=== PATIENT | female | born 1955 | race Caucasian/White ===

== ENCOUNTER → 2016-04-30 | Outpatient (REF) | payer MEDICARE, OTHER ==
[~2016-04-30] MED LIST: /ESOM40CA OR; ALBUTEROL INFIL; AMBI5TAB OR; ASPI81TA83 OR; CALCCHW12 OR; DEPA500T2 OR; MULTIVIT PO; TYL RE; ZOLO50TA OR
== END ==
LOC: M LAB REF 09:37
PROVIDERS: ATTEND Ophthalmology
DX: T81.4XXA Infection following a procedure, initial encounter (principal); B95.61 Methicillin susceptible Staphylococcus aureus infection as the cause of diseases classified elsewhere

== ENCOUNTER 2016-05-17 09:32 | Emergency (ER) | payer MEDICARE, OTHER ==
[~2016-05-17] VITALS: Ht 177.8 cm; Wt 113.4 kg
[2016-05-17] MEDS ORDERED: [UNRECOGNIZED DRUG - CODE] PO (09:51)
[2016-05-17] MEDS ORDERED: ADVA230A INH (09:51)
[2016-05-17] MEDS ORDERED: OMEP40CA2 PO (09:51)
[2016-05-17] MEDS ORDERED: SERT-138 PO (09:51)
[2016-05-17] MEDS ORDERED: ALBU17IN INH (09:51)
[2016-05-17] MEDS ORDERED: PROP60TA14 PO (09:51)
[2016-05-17] MEDS ORDERED: KETOROLAC 30 MG/ML VIAL (J1885) IV ONE (11:15)
[2016-05-17] MEDS ORDERED: GASTROGRAFIN SOLUTION 30ML (Q9963) As Ordered ONE (11:18)
[2016-05-17 11:19] LABS: BASO % 0.5 % (0.0-1.0); EOS # 0.2 K/mm3 (0.0-0.50); EOS % 3.6 % (0.0-3.0); LARGE UNSTAINED CELL # 0.1 K/mm3 (0.0-0.4); LARGE UNSTAINED CELL % 1.6 % (0.0-4.0); LYMPH # 2.1 K/mm3 (1.5-4.5); LYMPH % 34.8 % (24.0-44.0); MEAN CORPUSCULAR HGB CONC 32.5 g/dl (32.0-36.5); MEAN CORPUSCULAR VOLUME 92.1 fl (80.0-96.0); MONO # 0.3 K/mm3 (0.0-0.8); MONO % 5.2 % (0.0-5.0); NEUTROPHILS # 3.2 K/mm3 (1.8-7.7); NEUTROPHILS % 54.4 % (36.0-66.0); PLATELET COUNT, AUTOMATED 231 k/mm3 (150-450); RED CELL DISTRIBUTION WIDTH 12.9 % (11.5-14.5); WHITE BLOOD COUNT 5.9 K/mm3 (4.0-10.0)
[2016-05-17] MEDS ORDERED: GASTROGRAFIN SOLUTION 30ML (Q9963) PO ONE ×2 (11:30→11:45)
[2016-05-17 11:42] LABS: ALBUMIN 3.6 GM/DL (3.2-5.2); ALKALINE PHOSPHATASE 94 U/L (45-117); ALT/SGPT 23 U/L (12-78); ANION GAP 6 MEQ/L (8-16); AST/SGOT 15 U/L (15-37); BILIRUBIN,TOTAL 0.4 MG/DL (0.2-1.0); BLOOD UREA NITROGEN 9 MG/DL (7-18); CALCIUM LEVEL 8.6 MG/DL (8.8-10.2); CARBON DIOXIDE LEVEL 29 MEQ/L (21-32); CHLORIDE LEVEL 107 MEQ/L (98-107); CREATININE FOR GFR 0.87 MG/DL (0.55-1.02); GLOMERULAR FILTRATION RATE > 60.0 (>45); GLUCOSE, FASTING 101 MG/DL (80-110); POTASSIUM SERUM 3.8 MEQ/L (3.5-5.1); SODIUM LEVEL 142 MEQ/L (136-145); TOTAL PROTEIN 7.2 GM/DL (6.4-8.2)
[2016-05-17] MEDS ORDERED: TYLE325C PO (14:27)
[2016-05-17] MEDS ORDERED: COLA100C3 PO (14:27)
--- NOTE | 2016-05-17 14:27 | REP ---
CT BRAIN WITHOUT CONTRAST: 05/17/2016. Comparison: MRI 03/02/2014, CT 03/02/2014. Clinical history: Vision change. Findings: Noncontrast soft tissue and bone windows for each slice level are provided. Ventricles are midline, symmetric and without dilatation or displacement. Basal ganglia are symmetric and normal. The avelar-white junction differentiation is well maintained. I do not see any significant white matter heterogeneity. The cortical stripe is preserved. There is no vascular territory infarct, hemorrhage, mass, mass effect or edema. Brainstem intact. Cerebellum symmetric. There is no basal cistern abnormality. The posterior fossa shows no hemorrhage or mass. Skull base bone windows show mastoids and visualized sinuses are clear. There is some minor calcifications in the carotid siphons. The calvarium and skull base are without fracture or focal lesion. Impression: 1. There is no intracranial hemorrhage, acute infarct, edema, mass or mass effect. Avelar white junction differentiation well maintained. Ventricular size normal. 2. Sinuses, mastoids, skull base and calvarium without any acute finding. There are some minor atherosclerotic calcifications in the carotid siphons. Stable examination. Signed by Tuan Mascorro MD 05/17/2016 07:33 P
[2016-05-17 14:32] VITALS: BP 150/70
--- NOTE | 2016-05-17 14:35 | REP ---
CT ABDOMEN AND PELVIS WITH CONTRAST: 05/17/2016. Clinical history: Groin pain. Comparison: CT 06/27/2015. Technique: Oral Gastrografin mixture 10 ml in 290 ml of flavored water for two doses per our bowel contrast protocol and a bolus of 100 ml Isovue 370 and scanning through the abdomen and pelvis with coronal and sagittal reconstructions provided. Findings:CT abdomen: Lung bases show minor linear fibrotic change in the medial segment of the right middle lobe and the inferior lingular segment of the left upper lobe lateral to the heart border at the anterior lung base. Heart is not enlarged. There is no pericardial thickening or effusion. No hiatal hernia. Liver and spleen are not enlarged. There is no focal hepatic mass nor intrahepatic biliary dilatation. There are clips from prior cholecystectomy. No adjacent ascites. Adrenal glands are normal. The pancreas shows no mass, ductal dilatation or inflammatory change. Kidneys show function without obstruction, stone, mass or cyst. No perinephric edema. No hydronephrosis, hydroureter or ureteral stone evident. Course of the ureters followed to the bladder on both sides were unremarkable. Lung window review of all CT slices in the abdomen and pelvis shows no evidence of perforation or free air. Bone windows show disc space narrowing and vacuum phenomenon at L4-5 and T9-10 through T11-12. Small marginal osteophytes at multiple levels. No spondylolysis or spondylolisthesis. Visualized ribs intact. CT pelvis. The bony hips show minor degenerative changes with the pelvis, sacrum, acetabuli and ischium all grossly intact. There is minor sclerotic aspect to the iliac margin of the SI joints bilaterally without erosion or narrowing of those joint spaces. In the deep pelvis, bladder only minimally filled but no distal ureteral dilatation or stone, bladder stone, mass or wall thickening. Vaginal cuff intact. There are staple lines from presumed prior oophorectomy or salpingectomy. I do not see adnexal mass. No pelvic free fluid or pathologic sized adenopathy. There is no ventral hernia except at the umbilicus. No bowel herniation there. Scarring in the infraumbilical region and midline but no herniation. I do not see evidence of a hernia in the inguinal region nor was there a mass. A few small inguinal nodes seen without adenopathy. Some slight fullness in the inguinal region with omental fat only but no bowel herniation. Distal left colon, sigmoid and rectum are without colitis or diverticulitis. The abdominal portion of the colon shows no sign of colitis or diverticulitis. No definite appendix is seen. No inflammatory changes adjacent to the cecum or deep pelvis. Impression: 1. Slight fullness of the inguinal canals with omental fat but no bowel herniation, mass or adenopathy of significance. 2. Status post hysterectomy, cholecystectomy and appendectomy. There are some atherosclerotic calcifications aorta and branches without aneurysm. 3. Omental fat herniating at the umbilicus with infraumbilical midline scar and some diastases but no other definite hernias in the abdominal wall. No inguinal hernia of bowel loops. 4. Small bowel loops and colon grossly intact. Solid organs in the upper abdomen intact and the stomach is without hiatal hernia. Signed by Tuan Mascorro MD 05/17/2016 07:33 P
== END 2016-05-17 14:35 | disposition home or self-care (01) ==
LOC: M ED 10:12
DX: K46.9 Unspecified abdominal hernia without obstruction or gangrene (principal); J44.9 Chronic obstructive pulmonary disease, unspecified; I10 Essential (primary) hypertension; K21.9 Gastro-esophageal reflux disease without esophagitis; F33.9 Major depressive disorder, recurrent, unspecified; Z86.73 Personal history of transient ischemic attack (TIA), and cerebral infarction without residual deficits; Z78.0 Asymptomatic menopausal state; Z79.899 Other long term (current) drug therapy; Z79.82 Long term (current) use of aspirin; F17.210 Nicotine dependence, cigarettes, uncomplicated
CPT/HCPCS: 70450; 74177; 80053; 81001; 85025; 96374; 99283; J1885; Q9963

== ENCOUNTER 2016-11-18 08:19 | Day surgery (SDC) | payer MEDICARE ==
[~2016-11-18] VITALS: Ht 177.8 cm; Wt 110.7 kg
[~2016-11-18 08:19] MED LIST changes: +ACETAMINOPHEN 325 MG TAB PO PRN; +ADVA230A INH; +ALBU17IN INH; +BSS with VANC/TOB/EPI for EYE CASES IR ONE; +COLA100C5 PO; +CYCLOPENTOLATE 2% OPHTH SOLN 2ML BTL XX ONE; +EZET10TA PO; +LIDOCAINE 3.5 % 1ML OPHTH TOPICAL GEL OU ONE; +MIDAZOLAM INJ 2 MG/2 ML VIAL (J2250) As Ordered ONE; +OFLOXACIN 0.3 % (OCUFLOX) OPTH SOL 5ML XX ONE; +OMEP40CA2 PO; +PHENYLEPHRINE 2.5% OPHTH SOL 2ML XX ONE; +PROP60TA14 PO; +PROPARACAINE 0.5% OPHTH SOL 15ML OD PRN; +SERT-138 PO; +TROPICAMIDE 1% OPHTH SOLN 2ML XX ONE; +TYLE325C PO; +[UNRECOGNIZED DRUG - CODE] PO; +fentaNYL 100 MCG/2 ML INJECTION (J3010) As Ordered ONE
[2016-11-18] MEDS ORDERED: LIDOCAINE 1% SDV 5 ML VIAL SQ ONE (08:30)
[2016-11-18] MEDS ORDERED: LR 1,000 ML IV SCH (08:30)
[2016-11-18] MEDS ORDERED: HEALON DUET (HEALON 10MG/ML 0.55ML & HEALON ENDOCOAT 30MG/ML 0.85ML) As Ordered ONE (09:28)
[2016-11-18] MEDS ORDERED: LIDOCAINE 1% SDV 5 ML VIAL As Ordered ONE (09:28)
[2016-11-18] MEDS ORDERED: MOXIFLOXACIN IN BSS 0.25MG/0.25ML INTRACAMERAL INJ (OR EYE ONLY)(J2280) As Ordered ONE (09:28)
[2016-11-18] MEDS ORDERED: TRIAMCINOLONE PRES FR 40 MG/ML 1ML(TRIESENCE)(OR EYE ONLY)(J3300 PER 1MG) As Ordered ONE (09:28)
[2016-11-18] MEDS ORDERED: POVIDONE-IODINE 5% OPHTH PREP SOL 30ML As Ordered ONE (09:28)
[2016-11-18] MEDS ORDERED: AcetaZOLAMIDE 500 MG ER CAP As Ordered ONE (10:13)
[2016-11-18 10:15] VITALS: BP 124/59
[2016-11-18] MEDS ORDERED: TRIMETHOBENZAMIDE 300 MG CAP PO PRN (10:30)
[2016-11-18] MEDS ORDERED: KETOROLAC 0.5% OPHTH SOLN OD ONE (10:30)
[2016-11-18] MEDS ORDERED: AcetaZOLAMIDE 500 MG ER CAP PO ONE (10:30)
== END 2016-11-18 10:25 | disposition home or self-care (01) ==
LOC: M SDC 08:19
PROVIDERS: ATTEND Ophthalmology
DX: H26.9 Unspecified cataract (principal); K21.9 Gastro-esophageal reflux disease without esophagitis; J44.9 Chronic obstructive pulmonary disease, unspecified; F32.9 Major depressive disorder, single episode, unspecified; F41.9 Anxiety disorder, unspecified; G43.909 Migraine, unspecified, not intractable, without status migrainosus; G47.33 Obstructive sleep apnea (adult) (pediatric); G47.00 Insomnia, unspecified; E66.9 Obesity, unspecified; I10 Essential (primary) hypertension; R29.898 Other symptoms and signs involving the musculoskeletal system; R06.2 Wheezing; R06.02 Shortness of breath; Z79.899 Other long term (current) drug therapy; Z79.82 Long term (current) use of aspirin; Z86.73 Personal history of transient ischemic attack (TIA), and cerebral infarction without residual deficits; Z72.0 Tobacco use; Z90.710 Acquired absence of both cervix and uterus
CPT/HCPCS: 66984; J2250; J2280; J3010; J3300; V2632

== ENCOUNTER → 2016-11-23 | Outpatient (CLI) | payer MEDICARE ==
[~2016-11-23] MED LIST changes: -ACETAMINOPHEN 325 MG TAB PO PRN; -BSS with VANC/TOB/EPI for EYE CASES IR ONE; -CYCLOPENTOLATE 2% OPHTH SOLN 2ML BTL XX ONE; -LIDOCAINE 3.5 % 1ML OPHTH TOPICAL GEL OU ONE; -MIDAZOLAM INJ 2 MG/2 ML VIAL (J2250) As Ordered ONE; -OFLOXACIN 0.3 % (OCUFLOX) OPTH SOL 5ML XX ONE; -PHENYLEPHRINE 2.5% OPHTH SOL 2ML XX ONE; -PROPARACAINE 0.5% OPHTH SOL 15ML OD PRN; -TROPICAMIDE 1% OPHTH SOLN 2ML XX ONE; -fentaNYL 100 MCG/2 ML INJECTION (J3010) As Ordered ONE
--- NOTE | 2016-11-23 10:07 | REPMRS ---
Patient History The patient states she had a clinical breast exam in 11/24 Patient is postmenopausal. Family history of breast cancer in 2 maternal cousins at age 50 or over and colorectal cancer in brother at age 50 or over. Reductions of both breasts, April 15, 2012. Digital Woman Screen Mammo: November 23, 2016 - Exam #: [id number] Bilateral CC and MLO view(s) were taken. Technologist: Christen Samuel, Technologist Prior study comparison: November 22, 2015, digital woman screen mammo performed at [facility] [employer] [facility]. November 20, 2014, digital woman screen mammo performed at [facility] [employer] [facility]. FINDINGS: There are scattered fibroglandular densities. There has been no change in the appearance of the mammogram from the prior studies. There is a mild amount of residual fibroglandular tissue which is fairly symmetric. There is no interval development of dominant mass, architectural distortion, or clustered microcalcification suggestive of malignancy. ASSESSMENT: BI-RADS/ACR category 1 mammogram. Negative. Recommendation Routine screening mammogram in 1 year (for women over age 40). This mammogram was interpreted with the aid of an FDA-approved computer-aided dectection system. Electronically Signed By: Johnnie Avelar MD 11/23/16 1007
== END ==
LOC: M WHC 09:03
PROVIDERS: ATTEND Nurse Practitioner Women's Health
DX: Z12.31 Encounter for screening mammogram for malignant neoplasm of breast (principal); Z78.0 Asymptomatic menopausal state; Z98.890 Other specified postprocedural states

== ENCOUNTER 2017-01-11 08:31 | Day surgery (SDC) | payer MEDICARE ==
[~2017-01-11] VITALS: Ht 180.3 cm; Wt 66.1 kg
[~2017-01-11 08:31] MED LIST changes: +BSS with VANC/TOB/EPI for EYE CASES IR ONE; +CYCLOPENTOLATE 2% OPHTH SOLN 2ML BTL OS ONE; +LIDOCAINE 3.5 % 1ML OPHTH TOPICAL GEL OU ONE; +OFLOXACIN 0.3 % (OCUFLOX) OPTH SOL 5ML OS ONE; +PHENYLEPHRINE 2.5% OPHTH SOL 2ML OS ONE; +TROPICAMIDE 1% OPHTH SOLN 2ML OS ONE
[2017-01-11] MEDS ORDERED: ACETAMINOPHEN 325 MG TAB As Ordered ONE (10:30)
[2017-01-11] MEDS ORDERED: ACETAMINOPHEN TAB 650MG DOSE (2X325MG) PO ONE (10:30)
[2017-01-11] MEDS ORDERED: LIDOCAINE 1% SDV 5 ML VIAL As Ordered ONE (10:58)
[2017-01-11] MEDS ORDERED: MOXIFLOXACIN IN BSS 0.25MG/0.25ML INTRACAMERAL INJ (OR EYE ONLY)(J2280) As Ordered ONE (10:58)
[2017-01-11] MEDS ORDERED: TRIAMCINOLONE PRES FR 40 MG/ML 1ML(TRIESENCE)(OR EYE ONLY)(J3300 PER 1MG) As Ordered ONE (10:58)
[2017-01-11] MEDS ORDERED: HEALON DUET (HEALON 10MG/ML 0.55ML & HEALON ENDOCOAT 30MG/ML 0.85ML) As Ordered ONE (10:58)
[2017-01-11] MEDS ORDERED: POVIDONE-IODINE 5% OPHTH PREP SOL 30ML As Ordered ONE (10:58)
[2017-01-11] MEDS ORDERED: fentaNYL 100 MCG/2 ML INJECTION (J3010) As Ordered ONE (11:47)
[2017-01-11] MEDS ORDERED: MIDAZOLAM INJ 2 MG/2 ML VIAL (J2250) As Ordered ONE (11:47)
[2017-01-11 12:30] VITALS: BP 119/58
== END 2017-01-11 13:00 | disposition home or self-care (01) ==
LOC: M SDC 08:31
PROVIDERS: ATTEND Ophthalmology
DX: H25.9 Unspecified age-related cataract (principal); I10 Essential (primary) hypertension; E78.5 Hyperlipidemia, unspecified; K21.9 Gastro-esophageal reflux disease without esophagitis; F32.9 Major depressive disorder, single episode, unspecified; Z79.899 Other long term (current) drug therapy; F17.210 Nicotine dependence, cigarettes, uncomplicated; J44.9 Chronic obstructive pulmonary disease, unspecified; Z79.82 Long term (current) use of aspirin
CPT/HCPCS: 66984; J2250; J2280; J3010; J3300; V2632

== ENCOUNTER → 2017-02-14 | Outpatient (REF) | payer MEDICARE | LOC: M LAB REF 09:14 | DX: N39.0 Urinary tract infection, site not specified (principal) | CPT/HCPCS: 87186 ==

== ENCOUNTER → 2017-07-06 | Outpatient (CLI) | payer MEDICARE | LOC: M WUC 11:47 | DX: M54.5 Low back pain (principal) | CPT/HCPCS: 72110 ==

== ENCOUNTER → 2017-09-20 | Outpatient (CLI) | payer MEDICARE | LOC: M SMT 10:35 | DX: J44.9 Chronic obstructive pulmonary disease, unspecified (principal) | CPT/HCPCS: 71046 ==

== ENCOUNTER → 2017-11-24 | Outpatient (CLI) | payer MEDICARE | LOC: M WHC 08:31 | DX: Z12.31 Encounter for screening mammogram for malignant neoplasm of breast (principal); Z78.0 Asymptomatic menopausal state; Z92.89 Personal history of other medical treatment; Z80.0 Family history of malignant neoplasm of digestive organs | CPT/HCPCS: 77067 ==

== ENCOUNTER 2018-01-23 17:37 | Emergency (ER) | payer MEDICARE ==
[2018-01-23] MEDS: NS 1,000 ML IV (18:04)
[2018-01-23] MEDS: ASPIRIN 81 MG CHEW TABLET PO (18:13)
[2018-01-23 18:15] LABS: BASO % 0.5 % (0.0-1.0); EOS # 0.2 10^3/uL (0.0-0.50); EOS % 3.2 % (0.0-3.0); HEMATOCRIT 41.7 % (36.0-47.0); HEMOGLOBIN 13.5 g/dl (12.0-15.5); IMMATURE GRANULOCYTE % 0.5 % (0-3.0); MEAN CORPUSCULAR HEMOGLOBIN 30.1 pg (27.0-33.0); MEAN CORPUSCULAR HGB CONC 32.4 g/dl (32.0-36.5); MEAN CORPUSCULAR VOLUME 93.1 fl (80.0-96.0); MONO # 0.4 10^3/uL (0.0-0.8); MONO % 6.6 % (0.0-5.0); NEUTROPHILS # 3.8 10^3/uL (1.8-7.7); NEUTROPHILS % 59.2 % (36.0-66.0); PLATELET COUNT, AUTOMATED 235 10^3/uL (150-450); RED BLOOD COUNT 4.48 10^6/uL (4.00-5.40); RED CELL DISTRIBUTION WIDTH 12.3 % (11.5-14.5); WHITE BLOOD COUNT 6.5 10^3/uL (4.0-10.0)
[2018-01-23 18:18] LABS: PROTHROMBIN TIME 12.3 SECONDS (12.1-14.4)
[2018-01-23 18:27] LABS: ALBUMIN 3.5 GM/DL (3.2-5.2); ALBUMIN/GLOBULIN RATIO 1.21 (1.00-1.93); ALKALINE PHOSPHATASE 94 U/L (45-117); ALT/SGPT 27 U/L (12-78); ANION GAP 8 MEQ/L (8-16); AST/SGOT 16 U/L (7-37); BILIRUBIN,DIRECT < 0.1 MG/DL (0.0-0.2); BILIRUBIN,TOTAL 0.3 MG/DL (0.2-1.0); BLOOD UREA NITROGEN 12 MG/DL (7-18); CALCIUM LEVEL 8.2 MG/DL (8.8-10.2); CARBON DIOXIDE LEVEL 29 MEQ/L (21-32); CHLORIDE LEVEL 109 MEQ/L (98-107); CK-MB VALUE MASS < 1.0 NG/ML (<3.6); CPK CREATINE PHOSPHOKINASE 62 U/L (26-192); GLOMERULAR FILTRATION RATE > 60.0 (>45); GLUCOSE, FASTING 117 MG/DL (70-100); MB/CK RELATIVE INDEX 1.61 (< OR =4); POTASSIUM SERUM 3.5 MEQ/L (3.5-5.1); SODIUM LEVEL 146 MEQ/L (136-145); TOTAL PROTEIN 6.4 GM/DL (6.4-8.2); TROPONIN I < 0.02 NG/ML (< 0.10)
[2018-01-23 23:26] LABS: CK-MB VALUE MASS < 1.0 NG/ML (<3.6); CPK CREATINE PHOSPHOKINASE 53 U/L (26-192); MB/CK RELATIVE INDEX 1.89 (< OR =4); TROPONIN I < 0.02 NG/ML (< 0.10)
== END 2018-01-23 23:56 | disposition home or self-care (01) ==
LOC: M ED 17:37
DX: I20.8 Other forms of angina pectoris (principal); I10 Essential (primary) hypertension; E78.5 Hyperlipidemia, unspecified; Z79.899 Other long term (current) drug therapy; Z79.82 Long term (current) use of aspirin; Z82.49 Family history of ischemic heart disease and other diseases of the circulatory system; Z86.73 Personal history of transient ischemic attack (TIA), and cerebral infarction without residual deficits; Z87.891 Personal history of nicotine dependence
CPT/HCPCS: 71045

== ENCOUNTER → 2019-02-09 | Outpatient (CLI) | payer MEDICARE ==
[~2019-02-09] MED LIST changes: -/ESOM40CA OR; +AMIT25TA PO; -BSS with VANC/TOB/EPI for EYE CASES IR ONE; -CYCLOPENTOLATE 2% OPHTH SOLN 2ML BTL OS ONE; -EZET10TA PO; +EZET10TA21 PO; +GUAI1SOL2 PO; -LIDOCAINE 3.5 % 1ML OPHTH TOPICAL GEL OU ONE; +NEXI1CAP3 OR; -OFLOXACIN 0.3 % (OCUFLOX) OPTH SOL 5ML OS ONE; -OMEP40CA2 PO; +OMEP40CA97 PO; -PHENYLEPHRINE 2.5% OPHTH SOL 2ML OS ONE; +PRED20TA PO; +REDCAP4 PO; -TROPICAMIDE 1% OPHTH SOLN 2ML OS ONE; -[UNRECOGNIZED DRUG - CODE] PO
--- NOTE | 2019-02-09 09:24 | REPMRS ---
Patient History The patient states she had a clinical breast exam in 12/2018. Patient is postmenopausal. Family history of breast cancer at age 50 or over in maternal cousin, breast cancer in maternal cousin, colorectal cancer at age 50 or over in brother. Reductions of both breasts, April 15, 2012. No Hormone Replacement Therapy Digital Woman Screen Mammo: February 09, 2019 - Exam #: [id number] Bilateral CC and MLO view(s) were taken. Technologist: Candice Victor, Technologist Prior study comparison: November 24, 2017, bilateral digital woman screen mammo performed at [facility]. November 23, 2016, digital woman screen mammo performed at [facility]. November 22, 2015, digital woman screen mammo performed at [facility]. FINDINGS: There are scattered fibroglandular densities. There has been no change in the appearance of the mammogram from the prior studies. There is a mild amount of scattered fibroglandular density which is fairly symmetric. There is no interval development of dominant mass, architectural distortion, or grouped microcalcification suggestive of malignancy. 3-D tomosynthesis shows no additional findings. Assessment: BI-RADS/ACR category 1 mammogram. Negative Mammogram. Recommendation Routine screening mammogram of both breasts in 1 year (for women over age 40). This patient's Lifetime Breast Cancer Risk is estimated at 4.3 %. This mammogram was interpreted with the aid of an FDA-approved computer-aided dectection system. Electronically Signed By: Oh Virk MD 02/09/19 0924
== END ==
LOC: M WHC 08:17
PROVIDERS: ATTEND Internal Medicine
DX: Z12.31 Encounter for screening mammogram for malignant neoplasm of breast (principal)

== ENCOUNTER 2019-02-11 13:55 | Emergency (ER) | payer MEDICARE ==
[~2019-02-11] VITALS: Ht 182.9 cm; Wt 119.5 kg
[~2019-02-11 13:55] MED LIST changes: -AMIT25TA PO; -GUAI1SOL2 PO; -PRED20TA PO
[2019-02-11] MEDS ORDERED: AMIT25TA PO (14:29)
[2019-02-11] MEDS ORDERED: ALBUTEROL SULFATE 2.5 MG/0.5 ML INH NEB SOLN INH ONE (14:30)
[2019-02-11] MEDS ORDERED: FAMOTIDINE INJ 20MG/2ML VIAL (S0028) IVP ONE (14:30)
[2019-02-11] MEDS: MORPHINE 2 MG/ML 1ML VIAL (J2270) IV PRN ×2 (14:34→15:33)
[2019-02-11] MEDS ORDERED: GUAI1SOL2 PO (15:24)
[2019-02-11] MEDS ORDERED: LIDOCAINE VISCOUS 2% SOLN 15ML UDC PO STA (16:09)
[2019-02-11] MEDS ORDERED: PRED20TA PO (16:10)
[2019-02-11 16:38] VITALS: BP 164/70
--- NOTE | 2019-02-12 07:14 | REP ---
PORTABLE CHEST X-RAY: Single view. HISTORY: Cough. COMPARISON STUDY: January 23, 2018. FINDINGS: EKG electrodes are seen. Heart is not felt to be enlarged. Pulmonary vasculature is cephalized and there is vascular congestion. Question interstitial edema. This represents a change from prior study. IMPRESSION: Pulmonary vascular cephalization and congestion. Question interstitial edema diffusely. No focal infiltrate. Electronically Signed by Andrez Virk MD 02/12/2019 09:10 A
--- NOTE | 2019-02-12 17:11 | ED PDOC ---
Post-Departure Follow-Up dr burr faxed formal report of cxr for fu Judah Andrews MD Feb 12, 2019 17:11
== END 2019-02-11 16:39 | disposition home or self-care (01) ==
LOC: M ED 13:55
DX: R05 Cough (principal); T50.995A Adverse effect of other drugs, medicaments and biological substances, initial encounter; X58.XXXA Exposure to other specified factors, initial encounter; Y92.89 Other specified places as the place of occurrence of the external cause; I10 Essential (primary) hypertension; Z79.899 Other long term (current) drug therapy; Z79.82 Long term (current) use of aspirin
CPT/HCPCS: 71045; 94640; 96374; 96375; 96376; 99284; J2270

== ENCOUNTER → 2019-02-18 | Outpatient (CLI) | payer MEDICARE ==
[~2019-02-18] MED LIST changes: +AMIT25TA PO; +GUAI1SOL2 PO; +PRED20TA PO
--- NOTE | 2019-02-18 13:54 | REP ---
CHEST, TWO VIEWS: Two views of the chest are performed and compared to multiple prior exams dating back to 10/25/2013. There is mild bibasilar fibrotic change. No acute infiltrate is seen. Heart is normal in size. There is calcification and tortuosity of the thoracic aorta. Mediastinal silhouette is unchanged. There are degenerative changes of the spine with slight curvature toward the left. IMPRESSION: Mild chronic fibroatelectatic changes in the lung bases without evidence of acute infiltrate. Electronically Signed by Johnnie Avelar MD 02/18/2019 04:05 P
== END ==
LOC: M WUC 10:15
PROVIDERS: ATTEND Internal Medicine
DX: R91.8 Other nonspecific abnormal finding of lung field (principal); J68.1 Pulmonary edema due to chemicals, gases, fumes and vapors

== ENCOUNTER 2020-12-08 08:43 | Emergency (ER) | payer MEDICARE ==
[~2020-12-08] VITALS: Ht 180.3 cm; Wt 128.6 kg
[~2020-12-08 08:43] MED LIST changes: -AMIT25TA PO; +AMIT25TA17 PO; +OMEP40CA4 PO; -OMEP40CA97 PO
--- OUTSIDE RECORDS SUMMARY | 2020-12-08 08:51 | CCD ---
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 Onset: 05/22/2004 Allergic rhinitis James Beverly M.D. Onset: 07/03/2004 Depressive disorder Hortencia Barrett [facility]- Onset: 0 Migraine Hortencia Barrett [facility]-BC Onset: 2 Hyperlipidemia Hortencia Barrett [facility]-BC Onset: 2 Obesity Zuleyka Yan [facility]-C Onset: 2012 Chronic low back pain Letitia Portillo D., JAM-C Onset: 02/2013 Chronic obstructive lung disease Letitia Portillo D., [facility]-C Onset: 10/30/2014 Sleep apnea Letitia Portillo D., [facility]-C Onset: 07/04 Social History Type Date Description Comments Sex Unknown Tobacco Use Start: Unknown End: Unknown Patient is a former smoker Allergies and adverse reactions Active Allergies Criticality Reaction | Severity Comments Date Statins Unable to assess criticality 10/30/2014 Inactive Allergies NKDA Unable to assess criticality 05/22/2004 Medications Active Medications SIG Qnty Indications Ordering Provide r Date Nitrofurantoin Macrocrystal 100mg Capsules 1 by mouth twice a day x 7 days 14caps Eric Connelly M.D. 11/22/2020 Mirtazapine 15mg Tablets take 1 tablet by mouth once nightly at bedtime 90Tablet Eric Connelly M.D. 10/16/2020 Womens One Daily Tablets 1 p .o. qd OTC Eric Connelly M.D. 10/16/2020 Psyllium Husk Powder psyllium husk 700mg cap bid OTC Eric Connelly M.D. 10/17/19 21 Amlodipine Besylate 5mg Tablets 1 By Mouth Once Daily 90tabs Eric Connelly M.D. 04/09/19 21 Sertraline HCL 50mg Tablets Take One Tablet By Mouth Every Day 90tabs Eric Connelly M.D . 08/09/2018 Proair HFA 108(90Base) mcg/Act Aer osol 2 puffs every 4 hours as needed for sob 3units Eric Hale, [facility]- 10/30/[address] Take One Capsule By Mouth Every Day 90caps Eric Connelly M. D. 06/21/2012 Sertraline HCL 100mg Tablets Take One Tablet By Mouth Every Day With The 50 MG Tablet 90tabs F32.9 Eric Connelly M.D. 03/13/2008 Advair Diskus 250-50mcg/Dose Aeros ol 1 puff bid 1units Unknown Red Yeast Rice 600mg Tablets 2 po qd OTC Unknown Asa 81 Capsules Take 2 aspirin once daily 2caps Unknown Vitamin C Adult Gummies 125mg Chew tabs as directed daily OTC Unknown Vitamin D3 250mcg (85806 Ut) Capsu les 1 p.o. qd Unknown Cholesterol Defense Tablets daily as directed Unknown Fiber-Caps 625mg Tablets 1 tab by mouth once a day OTC Unknown History Medications Cipro 500mg Tablets 1 by mouth twice a day 6tabs Eric Connelly M.D. 11/19/19 21 - 11/22/2020 Medications Administered in Office Medication SIG Qnty Indications Ordering Provider Date Injection (SC)/(Im) Injection Deepak Tay D.O., FAAFP 12/02/2012 Injection (SC)/(Im) Injection Zuleyka Yan RPA-C 01/25/2012 Injection (SC)/(Im) Injection Hortencia Barrett [facility]-BC 12/26/2010 Injection Subcutaneous Or Intramuscular Injection Hortencia Barrett [facility]- 03/11 Immunizations CPT Code Status Date Vaccine Lot # 47333 Given 10/16/2020 Influenza Virus Vaccine, Quadrivalent, Slit Virus, Im Use 3Y & Up [id number] 36476 Given 03/08/2020 Pneumococcal Immunization T0 30596 72668 Given 11/09/2016 Influenza Virus Vaccine, Quadrivalent, Slit Virus, Im Use 3Y & Up [id number] 18284 Given 04/01/2015 PPD Tuberculosis Intradermal 99638 Given 10/30/2014 Influenza Virus Vac. Split Virus Individuals 3 Years And Above [id number] 33574 Given 11/20/2013 Influenza Virus Vac. Split Virus Individuals 3 Years And Above [id number] 41821 Given 12/02/2012 Influenza Virus Vac. Split Virus Individuals 3 Years And Above [id number] 92967 Given 01/25/2012 Influenza Vaccin e (Fluzone) 3Yrs Of Age Or Older Medicare Plans 97170 Given 01/25/2012 Influenza Virus Vac. Split Virus Individuals 3 Years And Above [id number] 97167 Given 12/26/2010 Pneumococcal Immunization 11 112 Vital Signs Date Vital Result Comment 11/29/2020 3:32pm BP Systolic 128 mmHg BP Diastolic 82 mmHg Body Temperature 97.6 F Heart Rate 118 /min Respiratory Rate 18 /min Height 70 inches 5'10" Weight 289.00 lb [place] Body Weight 150 lb BMI (Body Mass Index) 41.5 kg/m2 O2 % BldC Oximetry 98 % 11/18/2020 11:30am BP Systolic 146 mmHg BP Diastolic 88 mmHg Body Temperature 97.8 F Heart Rate 97 /min Respiratory Rate 16 /min Height 70 inches 5'10" Weight 283.00 lb [place] Body Weight 150 lb BMI (Body Mass Index) 40.6 kg/m2 O2 % BldC Oximetry 94 % Results Test Acquired Date Facility Test Result H/L Range Note Urine Culture, Routine 11/18/2020 [facility] [place] Urine Culture, Routine Final report Abnormal 1, 2 Result 1 Escherichia coli Abnormal 3 Antimicrobial Susceptibility See Comment: 4 U/A DIP FPA 11/18/2020 [facility] Asso ciates Color Urine YELLOW Yellow Appearance CLEAR Clear Specific [place] 1.020 1.00-1.03 PH Urine 5.0 5.0-8.0 Glucose Urine NEG Negative Bilirubin Urine NEG Negative Ketones NEG Negative Blood Urine NEG Negative Protein Urine NEG Negative Urobilinogen .2 EU/dl 0.2-1.0 Nitrite NEG Negative Leukocytes 1+ High Negative CMP 07/10/2020 [facility]Inhouse Glu 120 mg/dL High 70 - 110 5 BUN 11 mg/dL 8 - 23 Creat 0.9 mg/dL 0.5 - 1.0 BUN/Creatinine Ratio 11.9 CALC Na 142 mmol/L 136 - 145 K 4.1 mmol/L 3.5 - 5.1 CL 105.7 mmol/L 98.0 - 107.0 Co2 23.6 mmol/L 22.0 - 29.0 CA 9.4 mg/dL 8.6 - 10.2 TP 6.5 g/dL Low 6.6 - 8.7 Alb 4.4 g/dL 3.4 - 4.8 A/G Ratio 2.1 CALC Globulin 2.1 CALC Alp 94.0 U/L 35 - 129 Alt (SGPT) 17 U/L 0 - 41 Ast (Sgot) 15 U/L 0 - 40 Tbili 0.35 mg/dL 0.0 - 1.2 Osmolality-Calculated 283.2 CALC Anion Gap 17 mmol/L eGFR 77 # Calc 6 eGFR Non-Afr. [place] 67 # Calc 7 Lipid Panel 07/10/2020 [facility] Chol 178 mg/dL 0 - 200 Trig 119 mg/dL 40 - 200 HDL 53 mg/dL 45 - 65 LDL_C 101 Calc 75 - 129 Cho/HDL Ratio 3.4 CALC 1 SRC:URINE 2 Source of Specimen: URINE 3 Escherichia coli Source of Specimen: URINE Cefazolin <=4 ug/mL Cefazolin with an DIANA <=16 predicts susceptibility to the oral agents cefaclor, cefdinir, cefpodoxime, cefprozil, cefuroxime, cephalexin, and loracarbef when used for therapy of uncomplicated urinary tract infections due to E. coli, Klebsiella pneumoniae, and Proteus mirabilis. 25,000-50,000 colony forming units per m L 4 Source of Specimen: URINE S = Susceptible; I = Intermediate; R = Resistant P = Positive; N = Negative MICS are expressed in micrograms per mL Antibiotic RSLT#1 RSLT#2 RSLT#3 RSLT#4 Amoxicillin/Clavulanic Acid S Ampicillin S Cefepime S Ceftriaxone S Cefuroxime S Ciprofloxacin S Ertapenem S Gentamicin S Imipenem S Levofloxacin S Meropenem S Nitrofurantoin S Piperacillin/Tazobactam S Tetracycline S Tobramycin S Trimethoprim/Sulfa S 5 CHRONIC KIDNEY DISEASE STAGI NG PER NKF: MALE GFR INTERPRETATION: 20-49 YRS: >60 mL/min Normal 50-59 YRS: >56 mL/min Normal 60-69 YRS: >49 mL/min Normal 70-79 YRS: >42 mL/min Normal 80 and above >35 mL/min Normal FEMALE GRF INTERPRETATION: 20-39 YRS: >60 mL/min Normal 40-49 YRS: >58 mL/min Normal 50-59 YRS: >51 mL/min Normal 60-69 YRS: >45 mL/min Normal 70-79 YRS: >39 mL/min Normal 80 and above >32 mL/min NormalCLASSIFICATION CHOLESTEROL FOR ADULTS CHILDREN/ADOLESCENTS* DESIRABLE: <200 MG/DL <170 MG/DL BORDER-LINE HIGH RISK: 200-239 MG/DL 170-199 MG/DL HIGH RISK: >240 MG/DL >200 MG/DL CLASS. FOR PRIMARY LDL CHOL PREVENTION: LDL CHOL-CHILD/ADOLESCENTS* DESIRABLE: <130 MG/DL <110 MG/DL BORDERLINE-HIGH RISK: 130-159 MG/DL 110-129 MG/DL HIGH RISK: >160 MG/DL >130 MG/DL *CHILDREN AND ADOLESCENTS REPRESENTS INDIVIDUALA AGED 2-19 YEARS EXCLUSIVE. 6 CKD-EPI 7 CKD-EPI Procedures Date Code Description Status 11/29/2020 45796 Office/Outpatient Established Mo d MDM 30-39 Min Completed 11/18/2020 75086 Office/Outpatient Established Mo d MDM 30-39 Min Completed 10/16/2020 36620 Office/Outpatient Established Mo d MDM 30-39 Min Completed 07/10/2020 67615 Office/Outpatient Established Mo d MDM 30-39 Min Completed 02/09/2019 [id number] Mammogram Completed Medical Devices Description No Information Available Encounters Type Date Location Provider Dx Diagnosis Office Visit 11/29/2020 3:40p [facility] Eric Connelly M. D. R19.5 Other fecal abnormalities Office Visit 11/18/2020 11:30a [facility] Eric Connelly M. D. R32 Unspecified urinary incontinence Office Visit 10/16/2020 1:30p [facility] Eric Connelly M. D. R41.82 Altered mental status, unspecified Office Visit 07/10/2020 9:00a [facility] Eric Connelly M. D. F33.0 Major depressive disorder, recurrent, mild I10 Essential (primary) hyperten geraldine J44.9 Chronic obstructive pulmonar y disease, unspecified E78.5 Hyperlipidemia, unspecified R73.01 Impaired fasting glucose Assessments Date Code Description Provider 11/29/2020 R19.5 Other fecal abnormalities Eric Thorne M.D. 11/18/2020 R32 Unspecified urinary incontinence Eric Connelly M.D. 10/16/2020 R41.82 Altered mental status, unspecifi ed Eric Connelly M.D. 07/10/2020 F33.0 Major depressive disorder, recur rent, mild Eric Connelly M.D. 07/10/2020 I10 Essential (primary) hypertension Eric Connelly M.D. 07/10/2020 J44.9 Chronic obstructive pulmonary di sease, unspecified Eric Connelly M.D. 07/10/2020 E78.5 Hyperlipidemia, unspecified [facility] Eric kaye M.D. 07/10/2020 R73.01 Impaired fasting glucose Eric Huitron M.D. Plan of Treatment Future Appointment(s):* 01/13/2021 8:45 am - Eric Connelly M.D. at [facility] Functional Status Description No Information Available Mental Status Description No Information Available Referrals Refer to Dr Reason for Referral Status Appt Date Efra Orta M.D. positive FIT test- eval and rx Sent 12/09/[address] [place] [address] [address] [place] [address] [phone]
--- OUTSIDE RECORDS SUMMARY | 2020-12-08 08:52 | CCD ---
Continuity of Care Document (CCD) Created on: 12/03/2020 Teena Reis External Reference #: [id number] : [id number] Sex: Female Author Author Teena CONNELLY M.D. Organization Unknown Address [address] [address] Phone [phone] Care Team Providers Care Industrial Accountant Name Role Phone [facility] AUT [phone] Problems Active Problems Provider Date Gastroesophageal reflux disease James Beverly M.D. Onset: 05/22/2004 Allergic rhinitis James Beverly M.D. Onset: 07/03/2004 Depressive disorder Hortencia Barrett [facility]-BC Onset: 0 Migraine Hortencia BarrettP-BC Onset: 2 Hyperlipidemia Hortencia Barrett [employer]-BC Onset: 2 Obesity Zuleyka Yan [facility]-C Onset: 2012 Chronic low back pain Letitia Portillo D., JAM-C Onset: 02/2013 Chronic obstructive lung disease Letitia Portillo D., [facility]-C Onset: 10/30/2014 Sleep apnea Letitia Portillo D., [employer] [facility]-C Onset: 07/04 Social History Type Date Description [...] 10/17/19 21 Amlodipine Besylate 5mg Tablets 1 by mouth every day 90tabs Eric Connelly M.D. 04/09/19 21 Sertraline HCL 50mg Tablets Take One Tablet By Mouth Every Day 90tabs Eric Connelly M.D . 08/09/2018 Proair HFA 108(90Base) mcg/Act Aer osol 2 puffs every 4 hours as needed for sob 3units Eric Hale, [facility]- 10/30/[address] [...] directed daily OTC Unknown Vitamin D3 250mcg (09830 Ut) Capsu les 1 p.o. qd Unknown [...] RPA-C 01/25/2012 Injection (SC)/(Im) Injection Hortencia Barrett [employer]-BC 12/26/2010 Injection Subcutaneous Or Intramuscular Injection Hortencia Barrett [facility]- 03/11 Immunizations CPT Code Status Date Vaccine Lot # 72767 Given 10/16/2020 Influenza Virus Vaccine, Quadrivalent, Slit Virus, Im Use 3Y & Up [id number] 57579 Given 03/08/2020 Pneumococcal Immunization T0 07384 28120 Given 11/09/2016 Influenza Virus Vaccine, Quadrivalent, Slit Virus, Im Use 3Y & Up [id number] 31115 Given 04/01/2015 PPD Tuberculosis Intradermal 24644 Given 10/30/2014 Influenza Virus Vac. Split Virus Individuals 3 Years And Above [id number] 88247 Given 11/20/2013 Influenza Virus Vac. Split Virus Individuals 3 Years And Above [id number] 74314 Given 12/02/2012 Influenza Virus Vac. Split Virus Individuals 3 Years And Above [id number] 95866 Given 01/25/2012 Influenza Vaccin e (Fluzone) 3Yrs Of Age Or Older Medicare Plans 65615 Given 01/25/2012 Influenza Virus Vac. Split Virus Individuals 3 Years And Above [id number] 80702 Given 12/26/2010 Pneumococcal Immunization 11 112 Vital Signs Date Vital Result Comment 11/29/2020 3:32pm BP Systolic 128 mmHg BP Diastolic 82 mmHg Body Temperature 97.6 F Heart Rate 118 /min Respiratory Rate 18 /min Height 70 inches 5'10" Weight 289.00 lb [place] Body Weight 150 lb BMI (Body Mass Index) 41.5 kg/m2 O2 % BldC Oximetry 98 % 11/18/2020 11:30am BP Systolic 146 mmHg BP Diastolic 88 mmHg Body Temperature 97.8 F Heart Rate 97 /min Respiratory Rate 16 /min Height 70 inches 5'10" Weight 283.00 lb [place] Body Weight 150 lb BMI (Body Mass [...] Urine YELLOW Yellow Appearance CLEAR Clear Specific [place] 1.020 1.00-1.03 PH Urine 5.0 5.0-8.0 Glucose [...] eGFR 77 # Calc 6 eGFR Non-Afr. [place]ian 67 # Calc 7 Lipid Panel 07/10/2020 [...] CKD-EPI Procedures Date Code Description Status 11/29/2020 33880 Office/Outpatient Established Mo d MDM 30-39 Min Completed 11/18/2020 06949 Office/Outpatient Established Mo d MDM 30-39 Min Completed 10/16/2020 43137 Office/Outpatient Established Mo d MDM 30-39 Min Completed 07/10/2020 13792 Office/Outpatient Established Mo d MDM 30-39 Min Completed 02/09/2019 [id number] Mammogram Completed Medical Devices Description No Information Available Encounters Type Date Location Provider Dx Diagnosis Office Visit 11/29/2020 3:40p [facility] Eric Connelly M. D. R19.5 Other fecal abnormalities Office Visit 11/18/2020 11:30a [facility] Eric Connelly M. D. R32 Unspecified urinary incontinence Office Visit 10/16/2020 1:30p [facility] Eric Connelly M. D. R41.82 Altered mental status, unspecified Office Visit 07/10/2020 9:00a [facility] Eric Connelly M. D. F33.0 Major depressive [...] 8:45 am - Eric Connelly M.D. at [facility] Functional Status Description No Information Available Mental Status Description No Information Available Referrals Refer to Dr Reason for Referral Status Appt Date Efra Orta M.D. positive FIT test- eval and rx Sent 12/09/[address] [place] [address] [address] [place] [address] [phone]
--- OUTSIDE RECORDS SUMMARY | 2020-12-08 08:52 | CCD | Continuity of Care Document ---
Author Author Teena CONNELLY M.D. Organization Unknown Address [address] [address] Phone [phone] Care Team Providers Care Horticultural Specialty Grower Field Name Role Phone [facility] AUT Problems Active Problems Provider Date Gastroesophageal reflux disease James Beverly M.D. Onset: 05/22/2004 Allergic rhinitis James Beverly M.D. Onset: 07/03/2004 Depressive disorder Hortencia Barrett [facility]- Onset: 0 Migraine Hortencia Barrett-BC Onset: 2 Hyperlipidemia Hortencia Barrett PERMIT SPECIALIST-BC Onset: 2 Obesity Zuleyka Yan [facility]-C Onset: 2012 Chronic low back pain Letitia Portillo D., JAM-C Onset: 02/2013 Chronic obstructive lung disease Letitia Portillo D., PERMIT SPECIALIST-C Onset: 10/30/2014 Sleep apnea Letitia Portillo D., PERMIT SPECIALIST-C Onset: 07/04 Social History Type Date Description Comments Sex Unknown Tobacco Use Start: Unknown End: Unknown Patient is a former smoker Allergies and adverse reactions Active Allergies Criticality Reaction | Severity Comments Date Statins Unable to assess criticality 10/30/2014 Inactive Allergies NKDA Unable to assess criticality 05/22/2004 Medications Active Medications SIG Qnty Indications Ordering Provide r Date Cipro 500mg Tablets 1 by mouth twice a day 6tabs Eric Connelly M.D. 11/19/19 21 Mirtazapine 15mg Tablets take 1 tablet by [...] Take One Tablet By Mouth Every Day 90taEric Gonzalez M.D . 08/09/2018 Proair HFA 108(90Base) mcg/Act Aer osol 2 puffs every 4 hours as needed for sob 3units Eric Hale [facility]- 10/30/[address] Take [...] directed daily OTC Unknown Vitamin D3 250mcg (90066 Ut) Capsu les 1 p.o. qd Unknown Cholesterol Defense Tablets daily as directed Unknown Fiber-Caps 625mg Tablets 1 tab by mouth once a day OTC Unknown Medications Administered in Office Medication SIG Qnty Indications Ordering Provider Date Injection (SC)/(Im) Injection Deepak Tay D.O., FAAFP 12/02/2012 Injection (SC)/(Im) Injection Zuleyka Yan RPA-C 01/25/2012 Injection (SC)/(Im) Injection Hortencia Barrett [facility] 12/26/2010 Injection Subcutaneous Or Intramuscular Injection [facility] Immunizations CPT Code Status Date Vaccine Lot # [id number] Given 10/16/2020 Influenza Virus Vaccine, Quadrivalent, Slit Virus, Im Use 3Y & Up [id number] 32922 Given 03/08/2020 Pneumococcal Immunization T0 43744 52677 Given 11/09/2016 Influenza Virus Vaccine, Quadrivalent, Slit Virus, Im Use 3Y & Up [id number] 46124 Given 04/01/2015 PPD Tuberculosis Intradermal 32634 Given 10/30/2014 Influenza Virus Vac. Split Virus Individuals 3 Years And Above [id number] 16123 Given 11/20/2013 Influenza Virus Vac. Split Virus Individuals 3 Years And Above [id number] 44372 Given 12/02/2012 Influenza Virus Vac. Split Virus Individuals 3 Years And Above [id number] 36794 Given 01/25/2012 Influenza Vaccin e (Fluzone) 3Yrs Of Age Or Older Medicare Plans 89028 Given 01/25/2012 Influenza Virus Vac. Split Virus Individuals 3 Years And Above [id number] 28388 Given 12/26/2010 Pneumococcal Immunization 11 112 Vital Signs Date Vital Result Comment 11/18/2020 11:30am BP Systolic 146 mmHg BP Diastolic 88 mmHg Body Temperature 97.8 F Heart Rate 97 /min Respiratory Rate 16 /min Height 70 inches 5'10" Weight 283.00 lb [place] Body Weight 150 lb BMI (Body Mass Index) 40.6 kg/m2 O2 % BldC Oximetry 94 % 10/16/2020 1:33pm BP Systolic 124 mmHg BP Diastolic 76 mmHg Body Temperature 97.9 F Heart Rate 104 /min Respiratory Rate 18 /min Height 70 inches 5'10" Weight 275.00 lb [place] Body Weight 150 lb BMI (Body Mass Index) 39.5 kg/m2 O2 % BldC Oximetry 96 % Results Test Acquired Date Facility Test Result H/L Range Note Urine Culture, Routine 11/18/2020 [facility] [place] Urine Culture, Routine Preliminary repo <SEE NOTE> Abnormal 1, 2 Result 1 Escherichia coli Abnormal 3 U/A DIP FPA 11/18/2020 [facility] Color Urine YELLOW Yellow Appearance CLEAR Clear Specific [facility] [place] 1.020 1.00-1.03 PH Urine 5.0 5.0-8.0 Glucose Urine NEG Negative Bilirubin Urine NEG Negative Ketones NEG Negative Blood Urine NEG Negative Protein Urine NEG Negative Urobilinogen .2 EU/dl 0.2-1.0 Nitrite NEG Negative Leukocytes 1+ High Negative CMP 07/10/2020 FPA/Inhouse Glu 120 mg/dL High 70 - 110 4 BUN 11 mg/dL 8 - 23 Creat [...] Gap 17 mmol/L eGFR 77 # Calc 5 eGFR Non-Afr. Guinean 67 # Calc 6 Lipid Panel 07/10/2020 [facility]PA/Inhouse Chol 178 mg/dL 0 - 200 Trig 119 mg/dL 40 - 200 HDL 53 mg/dL 45 - 65 LDL_C 101 Calc 75 - 129 Cho/HDL Ratio 3.4 CALC 1 SRC:URINE 2 Preliminary report Source of Specimen: URINE 3 Escherichia coli Source of Specimen: URINE 25,000-50,000 colony forming units per m L 4 CHRONIC KIDNEY DISEASE STAGI NG PER NKF: [...] ADOLESCENTS REPRESENTS INDIVIDUALA AGED 2-19 YEARS EXCLUSIVE. 5 CKD-EPI 6 CKD-EPI Procedures Date Code Description Status 11/18/2020 02003 Office/Outpatient Established Mo d MDM 30-39 Min Completed 10/16/2020 10361 Office/Outpatient Established Mo d MDM 30-39 Min Completed 07/10/2020 96527 Office/Outpatient Established Mo d MDM 30-39 Min Completed 02/09/2019 [id number] Mammogram Completed Medical Devices Description No Information Available Encounters Type Date Location Provider Dx Diagnosis Office Visit 11/18/2020 11:30a [place] [facility] Eric Connelly M. D. R32 Unspecified urinary incontinence Office Visit 10/16/2020 1:30p [place] [facility] Eric Connelly M. D. R41.82 Altered mental status, unspecified Office Visit 07/10/2020 9:00a [place] [facility] Eric Connelly M. D. F33.0 Major depressive disorder, recurrent, mild I10 Essential (primary) hyperten geraldine J44.9 Chronic obstructive pulmonar y disease, unspecified E78.5 Hyperlipidemia, unspecified R73.01 Impaired fasting glucose Assessments Date Code Description Provider 11/18/2020 R32 Unspecified urinary incontinence Eric Connelly M.D. 10/16/2020 R41.82 Altered mental status, unspecifi ed Eric Connelly M.D. 07/10/2020 F33.0 Major depressive disorder, recur rent, mild Eric Connelly M.D. 07/10/2020 I10 Essential (primary) hypertension Eric Connelly M.D. 07/10/2020 J44.9 Chronic obstructive pulmonary di sease, unspecified Eric Connelly M.D. 07/10/2020 E78.5 [facility], [facility] 07/10[facility]2020 R73.01 Impaired fasting glucose Eric Huitron M.D. Plan of Treatment Future Appointment(s):* 01/13/2021 8:45 am - Eric Connelly M.D. at [facility] Functional Status Description No Information Available Mental Status Description No Information Available Referrals Description No Information Available
--- OUTSIDE RECORDS SUMMARY | 2020-12-08 08:52 | CCD | Continuity of Care Document ---
Author Author Teena CONNELLY M.D. Organization Unknown Address [address] [address] Phone [phone] Care Team Providers Care Automatic Clipper Name Role Phone [facility] AUT Problems Active Problems Provider Date Gastroesophageal reflux disease James Beverly M.D. Onset: 05/22/2004 Allergic rhinitis James Beverly M.D. Onset: 07/03/2004 Depressive disorder Hortencia Barrett [facility]-BC Onset: 0 Migraine Hortencia BarrettP-BC Onset: 2 Hyperlipidemia Hortencia Barrett GLASS TUBE BENDER-BC Onset: 2 Obesity Zuleyka Yan [facility]-C Onset: 2012 Chronic low back pain Letitia Portillo D., JAM-C Onset: 02/2013 Chronic obstructive lung disease Letitia Portillo D., GLASS TUBE BENDER-C Onset: 10/30/2014 Sleep apnea Letitia Portillo D., GLASS TUBE BENDER-C Onset: 07/04 Social History Type Date Description [...] as needed for sob 3units Eric Hale, [facility]- 10/30/[address] [...] directed daily OTC Unknown Vitamin D3 250mcg (57955 Ut) Capsu les 1 p.o. qd Unknown [...] RPA-C 01/25/2012 Injection (SC)/(Im) Injection Hortencia Barrett GLASS TUBE BENDER-BC 12/26/2010 Injection Subcutaneous Or Intramuscular Injection Hortencia Barrett [facility]- 03/11 Immunizations CPT Code Status Date Vaccine Lot # 37584 Given 10/16/2020 Influenza Virus Vaccine, Quadrivalent, Slit Virus, Im Use 3Y & Up [id number] 56247 Given 03/08/2020 Pneumococcal Immunization T0 94274 52814 Given 11/09/2016 Influenza Virus Vaccine, Quadrivalent, Slit Virus, Im Use 3Y & Up [id number] 57635 Given 04/01/2015 PPD Tuberculosis Intradermal 04415 Given 10/30/2014 Influenza Virus Vac. Split Virus Individuals 3 Years And Above [id number] 02289 Given 11/20/2013 Influenza Virus Vac. Split Virus Individuals 3 Years And Above [id number] 15447 Given 12/02/2012 Influenza Virus Vac. Split Virus Individuals 3 Years And Above [id number] 68344 Given 01/25/2012 Influenza Vaccin e (Fluzone) 3Yrs Of Age Or Older Medicare Plans 80727 Given 01/25/2012 Influenza Virus Vac. Split Virus Individuals 3 Years And Above [id number] 16966 Given 12/26/2010 Pneumococcal Immunization 11 112 Vital Signs Date Vital Result Comment 11/18/2020 11:30am BP Systolic 146 mmHg BP Diastolic 88 mmHg Body Temperature 97.8 F Heart Rate 97 /min Respiratory Rate 16 /min Height 70 inches 5'10" Weight 283.00 lb [place] Body Weight 150 lb BMI (Body Mass Index) 40.6 kg/m2 O2 % BldC Oximetry 94 % 10/16/2020 1:33pm BP Systolic 124 mmHg BP Diastolic 76 mmHg Body Temperature 97.9 F Heart Rate 104 /min Respiratory Rate 18 /min Height 70 inches 5'10" Weight 275.00 lb [place] Body Weight 150 lb BMI (Body Mass [...] Urine YELLOW Yellow Appearance CLEAR Clear Specific [place] 1.020 1.00-1.03 PH Urine 5.0 5.0-8.0 Glucose [...] eGFR 77 # Calc 6 eGFR Non-Afr. Romanian 67 # Calc 7 Lipid Panel 07/10/2020 [...] 7 CKD-EPI Procedures Date Code Description Status 11/18/2020 83310 Office/Outpatient Established Mo d MDM 30-39 Min Completed 10/16/2020 47812 Office/Outpatient Established Mo d MDM 30-39 Min Completed 07/10/2020 72167 Office/Outpatient Established Mo d MDM 30-39 Min Completed 02/09/2019 [id number] Mammogram Completed Medical Devices Description No Information Available Encounters Type Date Location Provider Dx Diagnosis Office Visit 11/18/2020 11:30a [place] [facility] Eric Connelly M. D. R32 Unspecified urinary incontinence Office Visit 10/16/2020 1:30p [place] [facility] Eric Connelly M. D. R41.82 Altered mental status, unspecified Office Visit 07/10/2020 9:00a [place] [facility] Eric Connelly M. D. F33.0 Major [...] Eric Connelly M.D. 07/10/2020 E78.5 Hyperlipidemia, unspecified [facility] Eric kaye M.D. 07/10/2020 R73.01 Impaired fasting glucose Eric Huitron M.D. Plan of Treatment Future Appointment(s):* 01/13/2021 8:45 am - Eric Connelly M.D. at [facility] Functional Status Description No Information Available Mental Status Description No Information Available Referrals Description No Information Available
--- OUTSIDE RECORDS SUMMARY | 2020-12-08 08:52 | CCD | Continuity of Care Document ---
Author Author Teena CONNELLY M.D. Organization Unknown Address [address] [address] Phone [phone] Care Team Providers Care Parking Meter Servicer Name Role Phone [facility] AUT [phone] Problems Active Problems Provider Date Gastroesophageal reflux disease James Beverly M.D. Onset: 05/22/2004 Allergic rhinitis James Beverly M.D. 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 qd Unknown Cholesterol Defense Tablets daily as directed Unknown Fiber-Caps 625mg Tablets 1 tab by mouth once a day OTC Unknown Medications Administered in Office Medication SIG Qnty Indications Ordering Provider Date Injection (SC)/(Im) Injection Deepak Tay D.O., FAAFP 12/02/2012 Injection (SC)/(Im) Injection Zuleyka Yan RPA-C 01/25/2012 Injection (SC)/(Im) Injection Hortencia Barrett [facility] 12/26/2010 Injection Subcutaneous Or Intramuscular Injection [facility] 03/11 Immunizations CPT Code Status Date Vaccine Lot # 47419 Given 10/16/2020 Influenza Virus Vaccine, Quadrivalent, Slit Virus, Im Use 3Y & Up [id number] 85398 Given 03/08/2020 Pneumococcal Immunization T0 56802 24582 Given 11/09/2016 Influenza Virus Vaccine, Quadrivalent, Slit Virus, Im Use 3Y & Up [id number] 37747 Given 04/01/2015 PPD Tuberculosis Intradermal 27524 Given 10/30/2014 Influenza Virus Vac. Split Virus Individuals 3 Years And Above [id number] 68357 Given 11/20/2013 Influenza Virus Vac. Split Virus Individuals 3 Years And Above [id number] 12605 Given 12/02/2012 Influenza Virus Vac. Split Virus Individuals 3 Years And Above [id number] 37642 Given 01/25/2012 Influenza Vaccin e (Fluzone) 3Yrs Of Age Or Older Medicare Plans 00412 Given 01/25/2012 Influenza Virus Vac. Split Virus Individuals 3 Years And Above [id number] 53882 Given 12/26/2010 Pneumococcal Immunization 11 112 Vital Signs Date Vital Result Comment 11/18/2020 11:30am BP Systolic 146 mmHg BP Diastolic 88 mmHg Body Temperature 97.8 F Heart Rate 97 /min Respiratory Rate 16 /min Height 70 inches 5'10" Weight 283.00 lb [place] Body Weight 150 lb BMI (Body Mass Index) 40.6 kg/m2 O2 % BldC Oximetry 94 % 10/16/2020 1:33pm BP Systolic 124 mmHg BP Diastolic 76 mmHg Body Temperature 97.9 F Heart Rate 104 /min Respiratory Rate 18 /min Height 70 inches 5'10" Weight 275.00 lb [place] Body Weight 150 lb BMI (Body Mass Index) 39.5 kg/m2 O2 % BldC Oximetry 96 % Results Test Acquired Date Facility Test Result H/L Range Note U/A DIP FPA 11/18/2020 [facility] Color Urine YELLOW Yellow Appearance CLEAR Clear Specific [place] 1.020 1.00-1.03 PH Urine 5.0 5.0-8.0 Glucose Urine NEG Negative Bilirubin Urine NEG Negative Ketones NEG Negative Blood Urine NEG Negative Protein Urine NEG Negative Urobilinogen .2 EU/dl 0.2-1.0 Nitrite NEG Negative Leukocytes 1+ High Negative CMP 07/10/2020 FPA/Inhouse Glu 120 mg/dL High 70 - 110 1 BUN 11 mg/dL 8 - 23 Creat [...] Gap 17 mmol/L eGFR 77 # Calc 2 eGFR Non-Afr. North Korean 67 # Calc 3 Lipid Panel 07/10/2020 FPA/Inhouse Chol 178 mg/dL 0 - 200 Trig 119 mg/dL 40 - 200 HDL 53 mg/dL 45 - 65 LDL_C 101 Calc 75 - 129 Cho/HDL Ratio 3.4 CALC 1 CHRONIC KIDNEY DISEASE STAGI NG PER NKF: [...] ADOLESCENTS REPRESENTS INDIVIDUALA AGED 2-19 YEARS EXCLUSIVE. 2 CKD-EPI 3 CKD-EPI Procedures Date Code Description Status 11/18/2020 45449 Office/Outpatient Established Mo d MDM 30-39 Min Completed 10/16/2020 92707 Office/Outpatient Established Mo d MDM 30-39 Min Completed 07/10/2020 15156 Office/Outpatient Established Mo d MDM 30-39 Min Completed 02/09/2019 [id number] Mammogram Completed Medical Devices Description No Information Available Encounters Type Date Location Provider Dx Diagnosis Office Visit 11/18/2020 11:30a [place] [facility] Eric Connelly M. D. R32 Unspecified urinary incontinence Office Visit 10/16/2020 1:30p [place] [facility] Eric Connelly M. D. R41.82 Altered mental status, unspecified Office Visit 07/10/2020 9:00a [place] [facility] Eric Connelly M. D. F33.0 Major [...] Eric Connelly M.D. 07/10/2020 E78.5 [facility]lipidemia, [facility] 07/10/2020 R73.01 Impaired fasting glucose Eric Huitron M.D. Plan of Treatment Future Appointment(s):* 01/13/2021 8:45 am - Eric Connelly M.D. at [facility] Functional Status Description No Information Available Mental Status Description No Information Available Referrals Description No Information Available
--- OUTSIDE RECORDS SUMMARY | 2020-12-08 08:52 | CCD | Continuity of Care Document ---
Author Author Teena CONNELLY M.D. Organization Unknown Address [address] [address] Phone [phone] Care Team Providers Care Grass Farm Laborer Name Role Phone [facility] AUT Problems Active Problems Provider Date Gastroesophageal reflux disease James Beverly M.D. Onset: 05/22/2004 Allergic rhinitis James Beverly M.D. Onset: 07/03/2004 Depressive disorder Hortencia Barrett [facility]- Onset: 0 Migraine Hortencia Barrett-BC Onset: 2 Hyperlipidemia Hortencia Barrett MANAGER ELECTRONIC-BC Onset: 2 Obesity Zuleyka Yan [facility]-C Onset: 2012 Chronic low back pain Letitia Portillo D., JAM-C Onset: 02/2013 Chronic obstructive lung disease Letitia Portillo D., MANAGER ELECTRONIC-C Onset: 10/30/2014 Sleep apnea Letitia Portillo D., MANAGER ELECTRONIC-C Onset: 07/04 Social History Type Date Description [...] as needed for sob 3units Eric Hale [facility]- 10/30/[address] [...] directed daily OTC Unknown Vitamin D3 250mcg (69295 Ut) Capsu les 1 p.o. qd Unknown Cholesterol Defense Tablets daily as directed Unknown Fiber-Caps 625mg Tablets 1 tab by mouth once a day OTC Unknown Medications Administered in Office Medication SIG Qnty Indications Ordering Provider Date Injection (SC)/(Im) Injection Deepak Tay D.O., FAAFP 12/02/2012 Injection (SC)/(Im) Injection Zuleyka Yan RPA-C 01/25/2012 Injection (SC)/(Im) Injection Hortencia Barrett [facility] 12/26/2010 Injection Subcutaneous Or Intramuscular Injection [facility] Immunizations CPT Code Status Date Vaccine Lot # 49358 Given 10/16/2020 Influenza Virus Vaccine, Quadrivalent, Slit Virus, Im Use 3Y & Up [id number] 60388 Given 03/08/2020 Pneumococcal Immunization T0 44736 50790 Given 11/09/2016 Influenza Virus Vaccine, Quadrivalent, Slit Virus, Im Use 3Y & Up [id number] 27074 Given 04/01/2015 PPD Tuberculosis Intradermal 66203 Given 10/30/2014 Influenza Virus Vac. Split Virus Individuals 3 Years And Above [id number] 91883 Given 11/20/2013 Influenza Virus Vac. Split Virus Individuals 3 Years And Above [id number] 09156 Given 12/02/2012 Influenza Virus Vac. Split Virus Individuals 3 Years And Above [id number] 01098 Given 01/25/2012 Influenza Vaccin e (Fluzone) 3Yrs Of Age Or Older Medicare Plans 71756 Given 01/25/2012 Influenza Virus Vac. Split Virus Individuals 3 Years And Above [id number] 01681 Given 12/26/2010 Pneumococcal Immunization 11 112 Vital Signs Date Vital Result Comment 11/18/2020 11:30am BP Systolic 146 mmHg BP Diastolic 88 mmHg Body Temperature 97.8 F Heart Rate 97 /min Respiratory Rate 16 /min Height 70 inches 5'10" Weight 283.00 lb [place] Body Weight 150 lb BMI (Body Mass Index) 40.6 kg/m2 O2 % BldC Oximetry 94 % 10/16/2020 1:33pm BP Systolic 124 mmHg BP Diastolic 76 mmHg Body Temperature 97.9 F Heart Rate 104 /min Respiratory Rate 18 /min Height 70 inches 5'10" Weight 275.00 lb [place] Body Weight 150 lb BMI (Body Mass Index) 39.5 kg/m2 O2 % BldC Oximetry 96 % Results Test Acquired Date Facility Test Result H/L Range Note U/A DIP FPA 11/18/2020 [facility] Color Urine YELLOW Yellow Appearance CLEAR Clear Specific [place] 1.020 1.00-1.03 PH Urine 5.0 5.0-8.0 Glucose [...] eGFR 77 # Calc 2 eGFR Non-Afr. Cypriot 67 # Calc 3 Lipid Panel 07/10/2020 [...] CKD-EPI Procedures Date Code Description Status 11/18/2020 81943 Office/Outpatient Established Mo d MDM 30-39 Min Completed 10/16/2020 97923 Office/Outpatient Established Mo d MDM 30-39 Min Completed 07/10/2020 06981 Office/Outpatient Established Mo d MDM 30-39 Min Completed 02/09/2019 [id number] Mammogram Completed Medical Devices Description No Information Available Encounters Type Date Location Provider Dx Diagnosis Office Visit 11/18/2020 11:30a [place] [facility] Eric Connelly M. D. R32 Unspecified urinary incontinence Office Visit 10/16/2020 1:30p [place] [facility] Eric Connelly M. D. R41.82 Altered mental status, unspecified Office Visit 07/10/2020 9:00a [place] [facility] Eric Connelly M. D. F33.0 Major [...] Eric Connelly M.D. 07/10/2020 E78.5 [facility], [facility] 07/10/2020 R73.01 Impaired fasting glucose Eric Huitron M.D. Plan of Treatment Future Appointment(s):* 01/13/2021 8:45 am - Eric Connelly M.D. at [facility] Functional Status Description No Information Available Mental Status Description No Information Available Referrals Description No Information Available
--- OUTSIDE RECORDS SUMMARY | 2020-12-08 08:52 | CCD | Continuity of Care Document ---
Author Author Teena CONNELLY M.D. Organization Unknown Address [address] [address] Phone [phone] Care Team Providers Care Timber Incisor Operator Name Role Phone [facility] AUT Problems Active Problems Provider Date Gastroesophageal reflux disease James Beverly M.D. Onset: 05/22/2004 Allergic rhinitis James Beverly M.D. Onset: 07/03/2004 Depressive disorder Hortencia Barrett [facility] Onset: 0 Migraine Hortencia Barrett-BC Onset: 2 Hyperlipidemia Hortencia Barrett [employer] [facility]-BC Onset: 2 Obesity Zuleyka Yan [facility] Onset: 2012 Chronic low back pain Letitia Portillo D., JAM-C Onset: 02/2013 Chronic obstructive lung disease Letitia Portillo D., [employer]-C Onset: 10/30/2014 Sleep apnea Letitia Portillo D., [employer]-C Onset: 07/04 Social History Type Date Description Comments Sex Unknown Tobacco Use Start: Unknown End: Unknown Patient is a former smoker Allergies, Adverse Reactions, Alerts Active Allergies Criticality Reaction | Severity Comments Date Statins Unable to assess criticality 10/30/2014 Inactive Allergies NKDA Unable to assess criticality 05/22/2004 Medications Active Medications SIG Qnty Indications Ordering Provide r Date Mirtazapine 15mg Tablets take 1 tablet by [...] as needed for sob 3units Eric Hale [facility] 10/30/[address] Take One [...] directed daily OTC Unknown Vitamin D3 250mcg (18377 Ut) Capsu les 1 p.o. qd Unknown Cholesterol Defense Tablets daily as directed Unknown Fiber-Caps 625mg Tablets 1 tab by mouth once a day OTC Unknown Medications Administered in Office Medication SIG Qnty Indications Ordering Provider Date Injection (SC)/(Im) Injection Deepak Tay D.O., FAAFP 12/02/2012 Injection (SC)/(Im) Injection Zuleyka Yan RPA-Dhara 01/25/2012 Injection (SC)/(Im) Injection Hortencia Barrett [facility] 12/26/2010 Injection Subcutaneous Or Intramuscular Injection Hortencia Barrett [facility] 03/11 Immunizations CPT Code Status Date Vaccine Lot # 72021 Given 10/16/2020 Influenza Virus Vaccine, Quadrivalent, Slit Virus, Im Use 3Y & Up [id number] 20121 Given 03/08/2020 Pneumococcal Immunization T0 64101 57096 Given 11/09/2016 Influenza Virus Vaccine, Quadrivalent, Slit Virus, Im Use 3Y & Up [id number] 47558 Given 04/01/2015 PPD Tuberculosis Intradermal 35266 Given 10/30/2014 Influenza Virus Vac. Split Virus Individuals 3 Years And Above [id number] 17808 Given 11/20/2013 Influenza Virus Vac. Split Virus Individuals 3 Years And Above [id number] 16894 Given 12/02/2012 Influenza Virus Vac. Split Virus Individuals 3 Years And Above [id number] 32571 Given 01/25/2012 Influenza Vaccin e (Fluzone) 3Yrs Of Age Or Older Medicare Plans 36729 Given 01/25/2012 Influenza Virus Vac. Split Virus Individuals 3 Years And Above [id number] 18253 Given 12/26/2010 Pneumococcal Immunization 11 112 Vital Signs Date Vital Result Comment 10/16/2020 1:33pm BP Systolic 124 mmHg BP Diastolic 76 mmHg Body Temperature 97.9 F Heart Rate 104 /min Respiratory Rate 18 /min Height 70 inches 5'10" Weight 275.00 lb [place] Body Weight 150 lb BMI (Body Mass Index) 39.5 kg/m2 O2 % BldC Oximetry 96 % 07/10/2020 8:59am BP Systolic 124 mmHg BP Diastolic 80 mmHg Body Temperature 97.3 F Heart Rate 96 /min Respiratory Rate 18 /min Height 70 inches 5'10" Weight 279.00 lb [place] Body Weight 150 lb BMI (Body Mass Index) 40.0 kg/m2 O2 % BldC Oximetry 95 % Results Test Acquired Date Facility Test Result H/L Range Note CMP 07/10/2020 FPA/Inhouse Glu 120 mg/dL High [...] eGFR 77 # Calc 2 eGFR Non-Afr. Taiwanese 67 # Calc 3 Lipid Panel 07/10/2020 [...] 3 CKD-EPI Procedures Date Code Description Status 10/16/2020 55354 Office/Outpatient Established Mo d MDM 30-39 Min Completed 07/10/2020 02127 Office/Outpatient Established Mo d MDM 30-39 Min Completed 05/10/2020 12200 Office/Outpatient Established Mo d MDM 30-39 Min Completed 02/09/2019 [id number] Mammogram Completed Medical Devices Description No Information Available Encounters Type Date Location Provider Dx Diagnosis Office Visit 10/16/2020 1:30p [place] [facility] Eric Connelly M. D. R41.82 Altered mental status, unspecified Office Visit 07/10/2020 9:00a [facility] Eric Connelly M. D. F33.0 Major depressive disorder, recurrent, mild I10 Essential (primary) hyperten geraldine J44.9 Chronic obstructive pulmonar y disease, unspecified E78.5 Hyperlipidemia, unspecified R73.01 Impaired fasting glucose Office Visit 05/10/2020 10:20a [place] [facility] Eric Connelly M. D. F33.0 Major depressive disorder, recurrent, mild I10 Essential (primary) hyperten geraldine Assessments Date Code Description Provider 10/16/2020 R41.82 Altered mental status, unspecifi ed Eric Connelly M.D. 07/10/2020 F33.0 Major depressive disorder, recur rent, Eric Warner M.D. 07/10/2020 I10 Essential (primary) hypertension Eric Connelly M.D. 07/10/2020 J44.9 Chronic obstructive pulmonary di sease, unspecified Eric Connelly M.D. 07/10/2020 E78.5 Hyperlipidemia, unspecified [facility] Eric kaye M.D. 07/10/2020 R73.01 Impaired fasting glucose Eric Huitron M.D. 05/10/2020 F33.0 Major depressive disorder, recur rentdarcy Scott H, M.D. 05/10/2020 I10 Essential (primary) hypertension Eric Connelly M.D. Plan of Treatment Future Appointment(s):* 11/18/2020 11:30 am - Eric Connelly M.D. at [facility] * 01/13/2021 8:45 am - Eric Connelly M.D. at [facility] Functional Status Description No Information Available Mental Status Description No Information Available Referrals Description No Information Available
--- OUTSIDE RECORDS SUMMARY | 2020-12-08 08:52 | CCD | Continuity of Care Document ---
Author Author Teena CONNELLY M.D. Organization Unknown Address [address] [address] Phone [phone] Care Team Providers Care Supervising Floorperson Name Role Phone [facility] AUT Problems Active Problems Provider Date Gastroesophageal reflux disease James Beverly M.D. Onset: 05/22/2004 Allergic rhinitis James Beverly M.D. Onset: 07/03/2004 Depressive disorder Hortencia Barrett [facility]-BC Onset: 0 Migraine Hortencia Barrett-BC Onset: 2 Hyperlipidemia Hortencia Barrett [employer]-BC Onset: 2 Obesity Zuleyka Yan [facility]-C Onset: 2012 Chronic low back pain Letitia Portillo D., GUEST RELATIONS COORDINATOR-C Onset: 02/2013 Chronic obstructive lung disease Letitia Portillo D., GUEST RELATIONS COORDINATOR-C Onset: 10/30/2014 Sleep apnea Letitia Portillo D., GUEST RELATIONS COORDINATOR-C Onset: 07/04 Social History Type Date Description [...] at bedtime 90Tablet Eric Connelly M.D. 10/16/2020 Amlodipine Besylate 5mg Tablets 1 by mouth every day 90tabs Eric Connelly M.D. 04/09/19 21 Sertraline HCL 50mg Tablets Take One Tablet By Mouth Every Day 90tabs Eric Connelly M.D . 08/09/2018 Proair HFA 108(90Base) mcg/Act Aer osol 2 puffs every 4 hours as needed for sob 3units Eric Hale [facility] 10/30/[address] Take One [...] Chew tabs as directed daily OTC Unknown Ginkgo Biloba 40mg Capsules daily as directed Unknown Vitamin D3 250mcg (14295 Ut) Capsu les 1 p.o. qd Unknown Cholesterol Defense Tablets daily as directed Unknown Medications Administered in Office Medication SIG Qnty Indications Ordering Provider Date Injection (SC)/(Im) Injection Deepak Tay D.O., FAAFP 12/02/2012 Injection (SC)/(Im) Injection Zuleyka Yan RPA-Dhara 01/25/2012 Injection (SC)/(Im) Injection Hortencia Barrett [facility] 12/26/2010 Injection Subcutaneous Or Intramuscular Injection Hortencia Barrett [facility] 03/11 Immunizations CPT Code Status Date Vaccine Lot # 76154 Given 03/08/2020 Pneumococcal Immunization T0 47184 68041 Given 11/09/2016 Influenza Virus Vaccine, Quadrivalent, Slit Virus, Im Use 3Y & Up [id number] 71935 Given 04/01/2015 PPD Tuberculosis Intradermal 14872 Given 10/30/2014 Influenza Virus Vac. Split Virus Individuals 3 Years And Above [id number] 08365 Given 11/20/2013 Influenza Virus Vac. Split Virus Individuals 3 Years And Above [id number] 61145 Given 12/02/2012 Influenza Virus Vac. Split Virus Individuals 3 Years And Above [id number] 56941 Given 01/25/2012 Influenza Vaccin e (Fluzone) 3Yrs Of Age Or Older Medicare Plans 24656 Given 01/25/2012 Influenza Virus Vac. Split Virus Individuals 3 Years And Above [id number] 95114 Given 12/26/2010 Pneumococcal Immunization 11 112 Vital Signs Date Vital Result Comment 10/16/2020 1:33pm BP Systolic 124 mmHg BP Diastolic 76 mmHg Body Temperature 97.9 F Heart Rate 104 /min Respiratory Rate 18 /min Height 70 inches 5'10" Weight 275.00 lb [place] Body Weight 150 lb BMI (Body Mass Index) 39.5 kg/m2 O2 % BldC Oximetry 96 % 07/10/2020 8:59am BP Systolic 124 mmHg BP Diastolic 80 mmHg Body Temperature 97.3 F Heart Rate 96 /min Respiratory Rate 18 /min Height 70 inches 5'10" Weight 279.00 lb [place] Body Weight 150 lb BMI (Body Mass [...] eGFR 77 # Calc 2 eGFR Non-Afr. [place]ib[place]ian 67 # Calc 3 Lipid Panel 07/10/2020 [...] CKD-EPI Procedures Date Code Description Status 10/16/2020 21361 Office/Outpatient Established Mo d MDM 30-39 Min Completed 07/10/2020 87524 Office/Outpatient Established Mo d MDM 30-39 Min Completed 05/10/2020 70064 Office/Outpatient Established Mo d MDM 30-39 Min Completed 02/09/2019 [id number] Mammogram Completed Medical Devices Description No Information Available Encounters Type Date Location Provider Dx Diagnosis Office Visit 10/16/2020 1:30p [place] [facility] Eric Connelly M. D. R41.82 Altered mental status, unspecified Office Visit 07/10/2020 9:00a [place] [facility] Eric Connelly M. D. F33.0 Major depressive disorder, recurrent, mild I10 Essential (primary) hyperten geraldine J44.9 Chronic obstructive pulmonar y disease, unspecified E78.5 Hyperlipidemia, unspecified R73.01 Impaired fasting glucose Office Visit 05/10/2020 10:20a [place] [facility] Eric Connelly M. D. F33.0 Major [...] Eric Connelly M.D. 07/10/2020 E78.5 [facility], [facility] 07/10/2020 R73.01 Impaired fasting glucose Eric Huitron M.D. 05/10/2020 F33.0 Major depressive disorder, recur rent, mild Eric Connelly M.D. 05/10/2020 I10 Essential (primary) hypertension Eric Connelly M.D. Plan of Treatment Future Appointment(s):* 01/13/2021 8:45 am - Eric Connelly M.D. at [facility] Functional Status Description No Information Available Mental Status Description No Information Available Referrals Description No Information Available
--- OUTSIDE RECORDS SUMMARY | 2020-12-08 08:52 | CCD | Continuity of Care Document ---
Author Author Teena CONNELLY M.D. Organization Unknown Address [address] [address] Phone [phone] Care Team Providers Care Portfolio Administrator Name Role Phone [facility] AUT Problems Active Problems Provider Date Gastroesophageal reflux disease James Beverly M.D. Onset: 05/22/2004 Allergic rhinitis James Beverly M.D. Onset: 07/03/2004 Depressive disorder Hortencia Barrett [facility]-BC Onset: 0 Migraine Hortencia BarrettP-BC Onset: 2 Hyperlipidemia Hortencia Barrett [employer] ACOUST[employer] A[employer]-BC Onset: 2 Obesity Zuleyka Yan [facility]-C Onset: 2012 Chronic low back pain Letitia Portillo D., JAM-C Onset: 02/2013 Chronic obstructive lung disease Letitia Portillo D., JOURNEYMAN LEVEL ACOUSTIC ANALYST-C Onset: 10/30/2014 Sleep apnea Letitia Portillo D., JOURNEYMAN LEVEL ACOUSTIC ANALYST-C Onset: 07/04 Social History Type Date Description [...] as needed for sob 3units Eric Hale, [facility]- 10/30/[address] Take One [...] directed daily OTC Unknown Vitamin D3 250mcg (67209 Ut) Capsu les 1 p.o. qd Unknown [...] RPA-C 01/25/2012 Injection (SC)/(Im) Injection Hortencia Barrett [employer]NEY[employer]EV[employer] ACOUSTIC ANALYST-BC 12/26/2010 Injection Subcutaneous Or Intramuscular Injection Hortencia Barrett [facility]- 03/11 Immunizations CPT Code Status Date Vaccine Lot # 54055 Given 10/16/2020 Influenza Virus Vaccine, Quadrivalent, Slit Virus, Im Use 3Y & Up [id number] 78621 Given 03/08/2020 Pneumococcal Immunization T0 90518 52143 Given 11/09/2016 Influenza Virus Vaccine, Quadrivalent, Slit Virus, Im Use 3Y & Up [id number] 40161 Given 04/01/2015 PPD Tuberculosis Intradermal 37901 Given 10/30/2014 Influenza Virus Vac. Split Virus Individuals 3 Years And Above [id number] 43034 Given 11/20/2013 Influenza Virus Vac. Split Virus Individuals 3 Years And Above [id number] 24174 Given 12/02/2012 Influenza Virus Vac. Split Virus Individuals 3 Years And Above [id number] 48332 Given 01/25/2012 Influenza Vaccin e (Fluzone) 3Yrs Of Age Or Older Medicare Plans 77824 Given 01/25/2012 Influenza Virus Vac. Split Virus Individuals 3 Years And Above [id number] 27495 Given 12/26/2010 Pneumococcal Immunization 11 112 Vital Signs Date Vital Result Comment 11/29/2020 3:32pm BP Systolic 128 mmHg BP Diastolic 82 mmHg Body Temperature 97.6 F Heart Rate 118 /min Respiratory Rate 18 /min Height 70 inches 5'10" Weight 289.00 lb [place] Body Weight 150 lb BMI (Body Mass Index) 41.5 kg/m2 O2 % BldC Oximetry 98 % 11/18/2020 11:30am BP Systolic 146 mmHg BP Diastolic 88 mmHg Body Temperature 97.8 F Heart Rate 97 /min Respiratory Rate 16 /min Height 70 inches 5'10" Weight 283.00 lb [place] Body Weight 150 lb BMI (Body Mass [...] Urine YELLOW Yellow Appearance CLEAR Clear Specific [place] 1.020 1.00-1.03 PH Urine 5.0 5.0-8.0 Glucose [...] eGFR 77 # Calc 6 eGFR Non-Afr. Faroese 67 # Calc 7 Lipid Panel 07/10/2020 [...] CKD-EPI Procedures Date Code Description Status 11/29/2020 32400 Office/Outpatient Established Mo d MDM 30-39 Min Completed 11/18/2020 85815 Office/Outpatient Established Mo d MDM 30-39 Min Completed 10/16/2020 28911 Office/Outpatient Established Mo d MDM 30-39 Min Completed 07/10/2020 39003 Office/Outpatient Established Mo d MDM 30-39 Min Completed 02/09/2019 [id number] Mammogram Completed Medical Devices Description No Information Available Encounters Type Date Location Provider Dx Diagnosis Office Visit 11/29/2020 3:40p [place] [facility] Eric Connelly M. D. R19.5 Other fecal abnormalities Office Visit 11/18/2020 11:30a [place] [facility] Eric Connelly M. D. R32 Unspecified urinary incontinence Office Visit 10/16/2020 1:30p [place] [facility] Eric Connelly M. D. R41.82 Altered mental status, unspecified Office Visit 07/10/2020 9:00a [facility] Eric Connelly M. D. F33.0 Major depressive [...] Connelly M.D. 07/10/2020 E78.5 Hyperlipidemia, unspecified [facility] helEric christianson M.D. 07/10/2020 R73.01 Impaired fasting glucose Eric Huitron M.D. Plan of Treatment Future Appointment(s):* 01/13/2021 8:45 am - Eric Connelly M.D. at [facility] Functional Status Description No Information Available Mental Status Description No Information Available Referrals Refer to Reason for Referral Status Appt Date Efra Orta M.D. positive FIT test- eval and rx Created [address] [place] [address], [facility] [address] [place] [address] [phone]
--- OUTSIDE RECORDS SUMMARY | 2020-12-08 08:52 | CCD | Continuity of Care Document ---
Author Author Teena CONNELLY M.D. Organization Unknown Address [address] [address] Phone [phone] Care Team Providers Care Precision Inspector Name Role Phone [facility] AUT Problems Active Problems Provider Date Gastroesophageal reflux disease James Beverly M.D. Onset: 05/22/2004 Allergic rhinitis James Beverly M.D. Onset: 07/03/2004 Depressive disorder Hortencia Barrett [facility]- Onset: 0 Migraine Hortencia Barrett-BC Onset: 2 Hyperlipidemia Hortencia Barrett COMPLIANCE CLERK-BC Onset: 2 Obesity Zuleyka Yan [facility] Onset: 2012 Chronic low back pain Letitia Portillo D., JAM-C Onset: 02/2013 Chronic obstructive lung disease Letitia Portillo D., COMPLIANCE CLERK-C Onset: 10/30/2014 Sleep apnea Letitia Portillo D., COMPLIANCE CLERK-C Onset: 07/04 Social History Type Date Description [...] as needed for sob 3units Eric Hale [facility]- 10/30/[address] Take One [...] directed daily OTC Unknown Vitamin D3 250mcg (06355 Ut) Capsu les 1 p.o. qd Unknown Cholesterol Defense Tablets daily as directed Unknown Fiber-Caps 625mg Tablets 1 tab by mouth once a day OTC Unknown Medications Administered in Office Medication SIG Qnty Indications Ordering Provider Date Injection (SC)/(Im) Injection Deepak Tay D.O., FAAFP 12/02/2012 Injection (SC)/(Im) Injection Zuleyka Yan RPA-C 01/25/2012 Injection (SC)/(Im) Injection Hortencia Barrett [facility] 12/26/2010 Injection Subcutaneous Or Intramuscular Injection [facility] Immunizations CPT Code Status Date Vaccine Lot # 71016 Given 10/16/2020 Influenza Virus Vaccine, Quadrivalent, Slit Virus, Im Use 3Y & Up [id number] 21268 Given 03/08/2020 Pneumococcal Immunization T0 63748 67791 Given 11/09/2016 Influenza Virus Vaccine, Quadrivalent, Slit Virus, Im Use 3Y & Up [id number] 19869 Given 04/01/2015 PPD Tuberculosis Intradermal 27947 Given 10/30/2014 Influenza Virus Vac. Split Virus Individuals 3 Years And Above [id number] 40437 Given 11/20/2013 Influenza Virus Vac. Split Virus Individuals 3 Years And Above [id number] 15690 Given 12/02/2012 Influenza Virus Vac. Split Virus Individuals 3 Years And Above [id number] 22202 Given 01/25/2012 Influenza Vaccin e (Fluzone) 3Yrs Of Age Or Older Medicare Plans 41948 Given 01/25/2012 Influenza Virus Vac. Split Virus Individuals 3 Years And Above [id number] 13235 Given 12/26/2010 Pneumococcal Immunization 11 112 Vital Signs Date Vital Result Comment 11/18/2020 11:30am BP Systolic 146 mmHg BP Diastolic 88 mmHg Body Temperature 97.8 F Heart Rate 97 /min Respiratory Rate 16 /min Height 70 inches 5'10" Weight 283.00 lb [place] Body Weight 150 lb BMI (Body Mass Index) 40.6 kg/m2 O2 % BldC Oximetry 94 % 10/16/2020 1:33pm BP Systolic 124 mmHg BP Diastolic 76 mmHg Body Temperature 97.9 F Heart Rate 104 /min Respiratory Rate 18 /min Height 70 inches 5'10" Weight 275.00 lb [place] Body Weight 150 lb BMI (Body Mass [...] Urine YELLOW Yellow Appearance CLEAR Clear Specific [place] 1.020 1.00-1.03 PH Urine 5.0 5.0-8.0 Glucose [...] eGFR 77 # Calc 5 eGFR Non-Afr. Uruguayan 67 # Calc 6 Lipid Panel 07/10/2020 [...] CKD-EPI Procedures Date Code Description Status 11/18/2020 93449 Office/Outpatient Established Mo d MDM 30-39 Min Completed 10/16/2020 42632 Office/Outpatient Established Mo d MDM 30-39 Min Completed 07/10/2020 00234 Office/Outpatient Established Mo d MDM 30-39 Min Completed 02/09/2019 [id number] Mammogram Completed Medical Devices Description No Information Available Encounters Type Date Location Provider Dx Diagnosis Office Visit 11/18/2020 11:30a [place] [facility] Eric Connelly M. D. R32 Unspecified urinary incontinence Office Visit 10/16/2020 1:30p [place] [facility] Eric Connelly M. D. R41.82 Altered mental status, unspecified Office Visit 07/10/2020 9:00a [place] [facility] Eric Connelly M. D. F33.0 Major [...] Eric Connelly M.D. 07/10/2020 E78.5 [facility]lipidemia, [facility] 07/10/2020 R73.01 Impaired fasting glucose Eric Huitron M.D. Plan of Treatment Future Appointment(s):* 01/13/2021 8:45 am - Eric Connelly M.D. at [facility] Functional Status Description No Information Available Mental Status Description No Information Available Referrals Description No Information Available
--- OUTSIDE RECORDS SUMMARY | 2020-12-08 08:53 | CCD ---
Author Author [facility] Organization [facility] Address Unknown Phone Unavailable Care Team Providers Care Energy Director Name Role Phone Maring, Lucero PA Unavailable Unavailable Maring, Lucero PA Unavailable Unavailable Maring, Lucero PA Unavailable Unavailable Maring, Lucero PA Unavailable Unavailable Maring, Lucero PA Unavailable Unavailable Maring, Lucero PA Unavailable Unavailable Maring, Lucero PA Unavailable Unavailable Maring, Lucero PA Unavailable Unavailable Maring, Lucero PA Unavailable Unavailable Maring, Lucero PA Unavailable Unavailable Maring, Lucero PA Unavailable Unavailable Maring, Lucero PA Unavailable Unavailable Maring, Lucero PA Unavailable Unavailable Maring, Lucero PA Unavailable Unavailable Maring, Lucero PA Unavailable Unavailable Maring, Lucero PA Unavailable Unavailable Madhuri BEGUM MD Unavailable Unavailable Madhuri BEGUM MD Unavailable Unavailable Madhuri BEGUM MD Unavailable Unavailable Madhuri BEGUM MD Unavailable Unavailable Madhuri BEGUM MD Unavailable Unavailable Madhuri BEGUM MD Unavailable Unavailable Madhuri BEGUM MD Unavailable Unavailable Madhuri BEGUM MD Unavailable Unavailable Madhuri BEGUM MD Unavailable Unavailable Madhuri BEGUM MD Unavailable Unavailable Madhuri BEGUM MD Unavailable Unavailable Madhuri BEGUM MD Unavailable Unavailable Madhuri BEGUM MD Unavailable Unavailable Madhuri BEGUM MD Unavailable Unavailable Madhuri BEGUM MD Unavailable Unavailable Madhuri BEGUM MD Unavailable Unavailable Madhuri BEGUM MD Unavailable Unavailable Madhuri BEGUM MD Unavailable Unavailable Madhuri BEGUM MD Unavailable Unavailable Madhuri BEGUM MD Unavailable Unavailable SHY H DANIEL PHAN Unavailable Unavailable SHY H DANIEL PHAN Unavailable Unavailable Madhuri BEGUM MD Unavailable Unavailable Madhuri BEGUM MD Unavailable Unavailable Madhuri BEGUM MD Unavailable Unavailable Madhuri BEGUM MD Unavailable Unavailable Madhuri BEGUM MD Unavailable Unavailable SHY H DANIEL PHAN Unavailable Unavailable Madhuri BEGUM MD Unavailable Unavailable SHY H DANIEL PHAN Unavailable Unavailable SHY H DANIEL PHAN Unavailable Unavailable SHY H DANIEL PHAN Unavailable Unavailable SHY H DANIEL PHAN Unavailable Unavailable SHY H DANIEL PHAN Unavailable Unavailable Madhuri BEGUM MD Unavailable Unavailable SHY H DANIEL PHAN Unavailable Unavailable SHY H DANIEL PHAN Unavailable Unavailable Madhuri BEGUM MD Unavailable Unavailable SHY H DANIEL PHAN Unavailable Unavailable SHY H DANIEL PHAN Unavailable Unavailable Madhuri BEGUM MD Unavailable Unavailable Madhuri BEGUM MD Unavailable Unavailable Madhuri BEGUM MD Unavailable Unavailable Madhuri BEGUM MD Unavailable Unavailable Madhuri BEGUM MD Unavailable Unavailable Madhuri BEGUM MD Unavailable Unavailable Madhuri BEGUM MD Unavailable Unavailable Madhuri BEGUM MD Unavailable Unavailable Madhuri BEGUM MD Unavailable Unavailable Madhuri BEGUM MD Unavailable Unavailable Madhuri BEGUM MD Unavailable Unavailable Madhuri BEGUM MD Unavailable Unavailable Madhuri BEGUM MD Unavailable Unavailable Madhuri BEGUM MD Unavailable Unavailable Madhuri BEGUM MD Unavailable Unavailable Madhuri BEGUM MD Unavailable Unavailable Madhuri BEGUM MD Unavailable Unavailable Madhuri BEGUM MD Unavailable Unavailable Madhuri BEGUM MD Unavailable Unavailable Madhuri BEGUM MD Unavailable Unavailable Madhuri BEGUM MD Unavailable Unavailable Madhuri BEGUM MD Unavailable Unavailable Madhuri BEGUM MD Unavailable Unavailable Madhuri BEGUM MD Unavailable Unavailable Madhuri BEGUM MD Unavailable Unavailable Madhuri BEGUM MD Unavailable Unavailable Madhuri BEGUM MD Unavailable Unavailable Madhuri BEGUM MD Unavailable Unavailable Madhuri BEGUM MD Unavailable Unavailable Madhuri BEGUM MD Unavailable Unavailable Madhuri BEGUM MD Unavailable Unavailable Madhuri BEGUM MD Unavailable Unavailable Madhuri BEGUM MD Unavailable Unavailable Madhuri BEGUM MD Unavailable Unavailable Madhuri BEGUM MD Unavailable Unavailable Madhuri BEGUM MD Unavailable Unavailable Larry Dailey MD Unavailable Unavailable Larry Dailey MD Unavailable Unavailable Larry Dailey MD Unavailable Unavailable Larry Dailey MD Unavailable Unavailable Larry Dailey MD Unavailable Unavailable Larry Dailey MD Unavailable Unavailable Larry Dailey MD Unavailable Unavailable Larry Dailey MD Unavailable Unavailable Larry Dailey MD Unavailable Unavailable Larry Dailey MD Unavailable Unavailable Larry Dailey MD Unavailable Unavailable Larry Dailey MD Unavailable Unavailable Dailey, Larry Alberto MD Unavailable Unavailable Dailey, Larry Dominguez MD Unavailable Unavailable Dailey, Larry Dominguez MD Unavailable Unavailable Dailey, Larry Dominguez MD Unavailable Unavailable Dailey, Larry Dominguez MD Unavailable Unavailable Dailey, Larry Dominguez MD Unavailable Unavailable Dailey, Larry Dominguez MD Unavailable Unavailable Dailey, Larry Dominguez MD Unavailable Unavailable Dailey, Larry Dominguez MD Unavailable Unavailable Dailey, Larry Dominguez MD Unavailable Unavailable Dailey, Larry Dominguez MD Unavailable Unavailable Dailey, Larry Dominguez MD Unavailable Unavailable Dailey, Larry Alberto MD Unavailable Unavailable Dailey, Larry Alberto MD Unavailable Unavailable Dailey, Larry Alberto MD Unavailable Unavailable Dailey, Larry Alberto MD Unavailable Unavailable Dailey, Larry Alberto MD Unavailable Unavailable Dailey, Larry Alberto MD Unavailable Unavailable Dailey, Larry Alberto MD Unavailable Unavailable Dailey, Larry Alberto MD Unavailable Unavailable Dailey, Larry Dominguez MD Unavailable Unavailable Dailey, Larry Alberto MD Unavailable Unavailable Dailey, Larry Alberto MD Unavailable Unavailable Dailey, Larry Dominguez MD Unavailable Unavailable Dailey, Larry Dominguez MD Unavailable Unavailable Dailey, Larry Dominguez MD Unavailable Unavailable Dailey, Larry Dominguez MD Unavailable Unavailable Dailey, Larry Dominguez MD Unavailable Unavailable Dailey, Larry Dominguez MD Unavailable Unavailable Dailey, Larry Dominguez MD Unavailable Unavailable Dailey, Larry Dominguez MD Unavailable Unavailable Dailey, Larry Dominguez MD Unavailable Unavailable Dailey, Larry Dominguez MD Unavailable Unavailable Dailey, Larry Dominguez MD Unavailable Unavailable Dailey, Larry Dominguez MD Unavailable Unavailable Dailey, Larry Dominguez MD Unavailable Unavailable Dailey, Larry Dominguez MD Unavailable Unavailable Dailey, Larry Dominguez MD Unavailable Unavailable Dailey, Larry Dominguez MD Unavailable Unavailable Dailey, Larry Dominguez MD Unavailable Unavailable Dailey, Larry Dominguez MD Unavailable Unavailable Dailey, Larry Dominguez MD Unavailable Unavailable Re-disclosure Warning The records that you are about to access may contain information from federally-assisted alcohol or drug abuse programs. If such information is present, then the following federally mandated warning applies: This information has been disclosed to you from records protected by federal confidentiality rules (42 CFR part 2). The federal rules prohibit you from making any further disclosure of this information unless further disclosure is expressly permitted by the written consent of the person to whom it pertains or as otherwise permitted by 42 CFR part 2. A general authorization for the release of medical or other information is NOT sufficient for this purpose. The Federal rules restrict any use of the information to criminally investigate or prosecute any alcohol or drug abuse patient.The records that you are about to access may contain highly sensitive health information, the redisclosure of which is protected by Article 27-F of the [facility] Public Health law. If you continue you may have access to information: Regarding HIV / AIDS; Provided by facilities licensed or operated by the [facility] Office of Mental Health; or Provided by the [facility] Office for People With Developmental Disabilities. If such information is present, then the following [facility] mandated warning applies: This information has been disclosed to you from confidential records which are protected by state law. State law prohibits you from making any further disclosure of this information without the specific written consent of the person to whom it pertains, or as otherwise permitted by law. Any unauthorized further disclosure in violation of state law may result in a fine or penitentiary sentence or both. A general authorization for the release of medical or other information is NOT sufficient authorization for further disc losure. Family History Family Member Name Family Member Gender Family Member Status Date o f Status Description Data Source(s) Unknown Unknown Problem [facility] Unknown Male Problem [facility] ([facility] () Unknown Male Problem [facility] ([facility]) Unknown Male Problem [facility] ([facility] ) Unknown Unknown Encounters Encounter Providers Location Date Indications Data Source(s ) Outpatient Attender: DANIEL [facility] 03:40:00 PM EDT [facility] Outpatient Attender: DANIEL Call[facility] Office 12/2020 11:30:00 AM EDT [facility] ([facility] Outpatient Attender: DANIEL [facility] Office 09/2020 01:30:00 PM EDT [facility] ([facility] Outpatient Attender: Lucero BENAVIDES 09/14/19 12:08:12 PM EDT - 09/13/2020 12:50:02 PM EDT [facility] ([facility] ) Outpatient Attender: DANIEL Calles Office 03/2020 09:00:00 AM EDT [facility] ([facility] Outpatient Attender: Alberto Dee/Qing/Jacinto judd 06/03/2020 09:00:00 AM EDT MED[facility] ([facility]) Outpatient Attender: DANIEL [facility]es [facility] 03/2020 10:20:00 AM EDT [facility] ([facility] [place] Outpatient Attender: DANIEL BEGUM MD [place] [facility] 02/2020 08:30:00 AM EST [facility] ([facility] Outpatient Attender: DANIEL BEGUM MD [place] [facility] 12:00:00 PM EST [facility] ([facility] Immunizations Vaccine Date Status Description Data Source(s) New in 2012. IIV4 10/16/2020 01:39:00 PM EDT completed [facility] ([facility] COVID-19 VACCINE Moderna 04/29/2020 12:00:00 AM EDT completed [facility] Vaccine Series Complete: YESThis Data wa s Submitted to [facility] Via [facility]. COVID-19 VACCINE, MRNA-1273, LNP-S (MODERNA)/PF 04/29/2020 1 2:00:00 AM EDT completed [facility] COVID-19 VACCINE, MRNA-1273, LNP-S (MODERNA)/PF 04/04/2020 1 2:00:00 AM EST completed [facility] pneumococcal polysaccharide PPV23 03/08/2020 12:10:00 PM EST comple catracho MEDENT ([facility] INFLUENZA VIRUS VACCINE QUADRIVALENT 2020-21 (6 MOS AN D UP) 11/02/2019 12:00:00 AM EDT completed [facility] Medications Medication Brand Name Start Date Product Form Dose Route Admi nistrative Instructions Pharmacy Instructions Status Indications Reaction Description Data Source(s) 120 ACTUAT Fluticasone propionate 0.23 M G/ACTUAT / salmeterol 0.021 MG/ACTUAT Metered Dose Inhaler [Advair] 230-21 mcg/actuation FLUTICASONE PROPION/SALMETEROL 12/04/2020 12:00:00 AM EDT HFA aerosol inhaler 12 INHALE TWO PUFFS BY MOUTH TWICE A DAY INHALE TWO PUFFS BY MOUTH TWICE A DAY SOLD: 12/05/2020 [facility] NITROFURANTOIN, MACROCRYSTALS 100 MG Oral Capsule Nitrofuran toin Macrocrystal 11/22/2020 12:00:00 AM EDT ORAL active [facility] ([facility] 100 mg 11/22/2020 12:00:00 AM EDT capsule 14 TAKE ONE CAPSULE BY MOUTH TWICE A DAY FOR 7 DAYS TAKE ONE CAPSULE BY MOUTH TWICE A DAY FOR 7 DAYS SOLD: 11/22/2020 [facility] Ciprofloxacin 500 MG Oral Tablet [Cipro] Cipro 11/18/2020 12:00: 00 AM EDT ORAL completed [facility] ([facility] Ciprofloxacin 500 MG Oral Tablet CIPROFLOXACIN HCL 11/18/2020 12 :00:00 AM EDT tablet 6 TAKE ONE TABLET BY MOUTH TWO LUCERO ES A DAY TAKE ONE TABLET BY MOUTH TWO TIMES A DAY SOLD: 11/18/2020 [facility] 100 mg 10/21/2020 12:00:00 AM EDT tablet 90 TAKE ONE TABLET BY MOUTH EVERY DAY WITH THE 50 MG TABLET TAKE ONE TABLET BY MOUTH EVERY DAY WITH THE 50 MG TABLET SOLD: 10/29/2020 [facility] 50 mg 10/21/2020 12:00:00 AM EDT tablet 90 TAKE ONE TABLET BY MOUTH EVERY DAY TAKE ONE TABLET BY MOUTH EVERY DAY SOLD: 10/21/2020 [facility] Womens One Daily 10/16/2020 12:00:00 AM EDT a ctive MED[facility] ([facility] 15 mg 10/16/2020 12:00:00 AM EDT tablet 90 TAKE ONE TABLET BY MOUTH AT BEDTIME TAKE ONE TABLET BY MOUTH AT BEDTIME SOLD: 10/16/2020 [facility] Psyllium Husk 10/16/2020 12:00:00 AM EDT acti ve MEDENT ([facility] Mirtazapine 15 MG Oral Tablet Mirtazapine 10/16/2020 12:00:00 AM EDT ORAL active [facility] ([facility] 40 mg 07/22/2020 12:00:00 AM EDT capsule,delayed release (DR/EC) 90 TAKE ONE CAPSULE BY MOUTH EVERY DAY TAKE ONE CAPSULE BY MOUTH EVERY DAY SOLD: 07/24/2020 [facility] 40 mg 07/22/2020 12:00:00 AM EDT capsule,delayed release (DR/EC) 90 TAKE ONE CAPSULE BY MOUTH EVERY DAY TAKE ONE CAPSULE BY MOUTH EVERY DAY SOLD: 10/21/2020 [facility] 5 mg 07/01/2020 12:00:00 AM EDT tablet 90 TAKE ONE TABLET BY MOUTH EVERY DAY TAKE ONE TABLET BY MOUTH EVERY DAY SOLD: 07/02/2020 [facility] 50 mg 05/22/2020 12:00:00 AM EDT tablet 90 TAKE ONE TABLET BY MOUTH AT BEDTIME TAKE ONE TABLET BY MOUTH AT BEDTIME SOLD: 05/26/2020 [facility] 5 mg 04/08/2020 12:00:00 AM EST tablet 90 1 BY MOUTH ONCE DAILY 1 BY MOUTH ONCE DAILY SOLD: 09/09/2020 [facility] Amlodipine 5 MG Oral Tablet Amlodipine Besylate 04/08/2020 12:00:00 A M EST active [facility] ([facility] 5 mg 04/08/2020 12:00:00 AM EST tablet 90 1 BY MOUTH ONCE DAILY 1 BY MOUTH ONCE DAILY SOLD: 04/08/2020 [facility] 50 mg 03/12/2020 12:00:00 AM EST tablet 90 TAKE ONE TABLET BY MOUTH AT BEDTIME TAKE ONE TABLET BY MOUTH AT BEDTIME SOLD: 03/13/2020 [facility] Amitriptyline Hydrochloride 50 MG Oral Tablet Amitriptyline HCL 03/08/2020 12:00:00 AM EST ORAL active M EDENT ([facility] 120 ACTUAT Fluticasone propionate 0.23 M G/ACTUAT / salmeterol 0.021 MG/ACTUAT Metered Dose Inhaler [Advair] 230-21 mcg/actuation FLUTICASONE PROPION/SALMETEROL 01/25/2020 12:00:00 AM EST HFA aerosol inhaler 12 INHALE TWO PUFFS BY MOUTH TWICE A DAY INHALE TWO PUFFS BY MOUTH TWICE A DAY SOLD: 09/02/2020 [facility] 230-21 mcg/actuation 01/25/2020 12:00:00 AM EST HFA aerosol inhaler 12 INHALE TWO PUFFS BY MOUTH TWICE A DAY INHALE TWO PUFFS BY MOUTH TWICE A DAY SOLD: 01/25/2020 [facility] 230-21 mcg/actuation 01/25/2020 12:00:00 AM EST HFA aerosol inhaler 12 INHALE TWO PUFFS BY MOUTH TWICE A DAY INHALE TWO PUFFS BY MOUTH TWICE A DAY SOLD: 02/25/2020 [facility] 230-21 mcg/actuation 01/25/2020 12:00:00 AM EST HFA aerosol inhaler 12 INHALE TWO PUFFS BY MOUTH TWICE A DAY INHALE TWO PUFFS BY MOUTH TWICE A DAY SOLD: 03/25/2020 [facility] 120 ACTUAT Fluticasone propionate 0.23 M G/ACTUAT / salmeterol 0.021 MG/ACTUAT Metered Dose Inhaler [Advair] 230-21 mcg/actuation FLUTICASONE PROPION/SALMETEROL 01/25/2020 12:00:00 AM EST HFA aerosol inhaler 12 INHALE TWO PUFFS BY MOUTH TWICE A DAY INHALE TWO PUFFS BY MOUTH TWICE A DAY SOLD: 06/26/2020 [facility] 120 ACTUAT Fluticasone propionate 0.23 M G/ACTUAT / salmeterol 0.021 MG/ACTUAT Metered Dose Inhaler [Advair] 230-21 mcg/actuation FLUTICASONE PROPION/SALMETEROL 01/25/2020 12:00:00 AM EST HFA aerosol inhaler 12 INHALE TWO PUFFS BY MOUTH TWICE A DAY INHALE TWO PUFFS BY MOUTH TWICE A DAY SOLD: 07/31/2020 [facility] 120 ACTUAT Fluticasone propionate 0.23 M G/ACTUAT / salmeterol 0.021 MG/ACTUAT Metered Dose Inhaler [Advair] 230-21 mcg/actuation FLUTICASONE PROPION/SALMETEROL 01/25/2020 12:00:00 AM EST HFA aerosol inhaler 12 INHALE TWO PUFFS BY MOUTH TWICE A DAY INHALE TWO PUFFS BY MOUTH TWICE A DAY SOLD: 05/26/2020 [facility] 230-21 mcg/actuation 01/25/2020 12:00:00 AM EST HFA aerosol inhaler 12 INHALE TWO PUFFS BY MOUTH TWICE A DAY INHALE TWO PUFFS BY MOUTH TWICE A DAY SOLD: 04/24/2020 [facility] 40 mg 01/15/2020 12:00:00 AM EST capsule,delayed release (DR/EC) 90 TAKE ONE CAPSULE BY MOUTH EVERY DAY TAKE ONE CAPSULE BY MOUTH EVERY DAY SOLD: 04/24/2020 [facility] 40 mg 01/15/2020 12:00:00 AM EST capsule,delayed release (DR/EC) 90 TAKE ONE CAPSULE BY MOUTH EVERY DAY TAKE ONE CAPSULE BY MOUTH EVERY DAY SOLD: 01/25/2020 [facility] Amitriptyline Hydrochloride 25 MG Oral Tablet AMITRIPTYLINE HCL 11/28/2019 12:00:00 AM EDT tablet 90 TAKE ONE TABLET BY MOUTH AT BEDTIME TAKE ONE TABLET BY MOUTH AT BEDTIME SOLD: 11/29/2019 [facility] Amitriptyline Hydrochloride 25 MG Oral Tablet AMITRIPTYLINE HCL 11/28/2019 12:00:00 AM EDT tablet 90 TAKE ONE TABLET BY MOUTH AT BEDTIME TAKE ONE TABLET BY MOUTH AT BEDTIME SOLD: 02/25/2020 [facility] 90 mcg/actuation 11/27/2019 12:00:00 AM EDT HFA aerosol inha ler 17 INHALE TWO PUFFS BY MOUTH FOUR TIMES A DAY NEEDED INHALE TWO PUFFS BY MOUTH FOUR TIMES A DAY NEEDED SOLD: 11/29/2019 [facility] 100 mg 10/17/2019 12:00:00 AM EDT tablet 90 TAKE ONE TABLET BY MOUTH EVERY DAY WITH THE 50 MG TABLET TAKE ONE TABLET BY MOUTH EVERY DAY WITH THE 50 MG TABLET SOLD: 10/19/2019 [facility] 50 mg 10/17/2019 12:00:00 AM EDT tablet 90 TAKE ONE TABLET BY MOUTH EVERY DAY TAKE ONE TABLET BY MOUTH EVERY DAY SOLD: 07/24/2020 [facility] 50 mg 10/17/2019 12:00:00 AM EDT tablet 90 TAKE ONE TABLET BY MOUTH EVERY DAY TAKE ONE TABLET BY MOUTH EVERY DAY SOLD: 04/24/2020 [facility] 50 mg 10/17/2019 12:00:00 AM EDT tablet 90 TAKE ONE TABLET BY MOUTH EVERY DAY TAKE ONE TABLET BY MOUTH EVERY DAY SOLD: 01/25/2020 [facility] 100 mg 10/17/2019 12:00:00 AM EDT tablet 90 TAKE ONE TABLET BY MOUTH EVERY DAY WITH THE 50 MG TABLET TAKE ONE TABLET BY MOUTH EVERY DAY WITH THE 50 MG TABLET SOLD: 07/24/2020 [facility] 100 mg 10/17/2019 12:00:00 AM EDT tablet 90 TAKE ONE TABLET BY MOUTH EVERY DAY WITH THE 50 MG TABLET TAKE ONE TABLET BY MOUTH EVERY DAY WITH THE 50 MG TABLET SOLD: 04/24/2020 [facility] 50 mg 10/17/2019 12:00:00 AM EDT tablet 90 TAKE ONE TABLET BY MOUTH EVERY DAY TAKE ONE TABLET BY MOUTH EVERY DAY SOLD: 10/19/2019 [facility] 100 mg 10/17/2019 12:00:00 AM EDT tablet 90 TAKE ONE TABLET BY MOUTH EVERY DAY WITH THE 50 MG TABLET TAKE ONE TABLET BY MOUTH EVERY DAY WITH THE 50 MG TABLET SOLD: 01/25/2020 [facility] 40 mg 07/17/2019 12:00:00 AM EDT capsule,delayed release (DR/EC) 90 TAKE ONE CAPSULE BY MOUTH EVERY DAY TAKE ONE CAPSULE BY MOUTH EVERY DAY SOLD: 10/19/2019 [facility] Insurance Providers Payer name Policy type / Coverage type Policy ID Covered alliance party ID Covered alliance party's relationship to red[place] Policy [place] Plan Information I [facility] [id number] Bea [id number] GROUP HEALTH INSURANCE [id number] SP [id number] [facility] [id number] SP [id number] 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 [id number] Empl [id number] [place] 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 Workers Compensation [id number] Self [id number] MEDICARE BLUE PPO [id number] SP [id number] DEPT OF LABOR [id number] SP [id number] [facility] Advantage Medigap Part B [id number] Self [id number] Ghi/Emblem HLTH (pr) Medigap Part B [id number] Self [id number] BC/BS Of [facility] Medigap Part B [id number] Self [facility] MEDICARE [id number] [facility] MEDICARE [id number] MEDICARE BLUE PPO [id number] SP [id number] Medicare Advantage BCBS Medigap Part B [id number] Self [id number] [id number] Self [id number] EXCELLUS MEDICARE BLUE PPO G [id number] Self [id number] EXCELLUS BCBS MEDICARE [id number] Bea [id number] EXCELLUS BCBS MEDICARE [id number] Bea [id number] MEDICARE BLUE PPO [id number] SP [id number] Blue Shield MCR Advantage Commercial [id number] Self [id number] Medicare Blue Ppo Commercial [id number] Self [id number] Medicare Blue Ppo Commercial [id number] Self [id number] Medicare Blue Ppo Commercial [id number] Self [id number] [employer] Commercial [id number] Self [id number] [facility] [id number] SP [id number] [employer] [id number] Bea f [id number] MEDICARE BLUE PPO 306 [id number] SP [id number] MEDICARE BLUE PPO 306 [id number] SP [id number] [employer] Commercial [id number] Self BC/BS Of [place] Commercial [id number] Self [employer] [id number] [facility]I [facility] O [id number] S [id number] GHI [facility] -O/P [id number] 18 [id number] BLUE CROSS BLUE SHIELD -O/P [id number] [facility] Commercial [id number] Self BC/BS Of [place] Commercial [id number] Self GROUP HEALTH INSURANCE O [id number] S [id number] DEPARTMENT OF LABOR O [id number] S [id number] Ghi/[employer]blem[employer] [place] Part B [id number] Self [id number] Well[employer] Health Plans(To) Commercial [id number] Self [id number] [employer] BC/BS Commercial [id number] [facility] [id number] 0 [id number] [facility] [id number] S [id number] MEDICARE BLUE PPO 306 [id number] SP [id number] MEDICARE BLUE PPO P [id number] S [id number] WELLCARE [id number] SP [id number] DEPT OF LABOR [id number] SP [id number] WELLCARE O [id number] S [id number] BS Medicare Blue Ppo/Hmo Commercial [id number] Self [id number] BS Medicare Blue Ppo/Hmo Commercial [id number] Self [id number] BS Medicare Blue Ppo/Hmo Commercial [id number] Self [id number] BS Medicare Blue Ppo/Hmo Commercial [id number] Self [id number] [facility] Part B [id number] Self [id number] BS Medicare Blue Ppo/Hmo Commercial [id number] Self [id number] BCBS/[employer] Commercial [id number] Self [id number] Acc/Dol ([place] Labor) () Workers Compensation [id number] Self [id number] ANSI-Medicare Part B [id number] [facility] B [id number] S [id number] [facility] [id number] [facility] Part B [id number] Self [id number] Problems, Conditions, and Diagnoses No Information Surgeries/Procedures Procedure Description Date Indications Data Source(s) OFFICE OUTPATIENT VISIT 25 MINUTES 11/29/2020 12:00:00 AM EDT [facility] ([facility] OFFICE OUTPATIENT VISIT 25 MINUTES 11/18/2020 12:00:00 AM EDT [facility] ([facility] OFFICE OUTPATIENT VISIT 25 MINUTES 10/16/2020 12:00:00 AM EDT [facility] ([facility] OFFICE OUTPATIENT VISIT 25 MINUTES 07/10/2020 12:00:00 AM EDT [facility] ([facility] Spirometry 06/03/2020 12:00:00 AM EDT M EDENT ([facility], ) OFFICE OUTPATIENT VISIT 25 MINUTES 05/10/2020 12:00:00 AM EDT [facility] ([facility] Electrocardiogram Complete 04/08/2020 12:00:00 AM EST [facility] ([facility] Results ID Date Data Source [id number] 11/18/2020 03:58:00 PM EDT MEDENT ([facility] Name Value Range Interpretation Code Description Data Jackie rce(s) Supporting Document(s) Urine Culture, Routine Laboratory test result Ab normal (applies to non-numeric results) [facility] ([facility] SRC:URINE Bacteria identified in Urine by Culture Laboratory test result Abnormal (applies to non-numeric results) [facility] ([facility] SRC:URINE Antimicrobial Susceptibility Laboratory test result MED[facility] ([facility] SRC:URINE ID Date Data Source [id number] 11/18/2020 03:55:00 PM EDT MEDENT ([facility] Name Value Range Interpretation Code Description Data Jackie rce(s) Supporting Document(s) Color Urine Laboratory test result M EDENT ([facility] Appearance of Urine Laboratory test result MED[facility] ([facility] Specific Basehor 1.020 1.00-1.03 MEDENT ([facility] PH Urine 5.0 5.0-8.0 MEDENT ([facility] Glucose Urine Laboratory test result MEDENT ([facility] Bilirubin.total [Presence] in Urine by Test strip Laboratory test res ult MEDENT ([facility] Ketones Laboratory test result MEDENT ([facility] Protein Urine Laboratory test result MED[facility] ([facility] Blood Urine Laboratory test result M EDENT ([facility] Nitrite Laboratory test result MEDENT ([facility] Urobilinogen 0.2 EU/dl 0.2-1.0 MED[facility] ([facility] Leukocytes Laboratory test result Above high normal MED[facility] ([facility] ID Date Data Source [id number] 07/10/2020 09:15:00 AM EDT MEDENT ([facility] Name Value Range Interpretation Code Description Data Jackie rce(s) Supporting Document(s) Chol 178 mg/dL 0-200 MED[facility] ([facility] CHRONIC KIDNEY DISEASE STAGING PER NKF: MALE GFR INTERPRETATION: 20-49 YRS: [...] DESIRABLE: <130 MG/DL <110 MG/DL BORDERLINE-HIGH RISK: 130- 159 MG/DL 110-129 MG/DL HIGH RISK: >160 MG/DL >130 MG/DL *CHILDREN AND ADOLESCENTS REPRESENTS INDIVIDUALA AGED 2-19 YEARS EXCLUSIVE. Trig 119 mg/dL 40-200 [facility] ([facility] CHRONIC KIDNEY DISEASE STAGING PER NKF: MALE GFR INTERPRETATION: 20-49 YRS: [...] DESIRABLE: <130 MG/DL <110 MG/DL BORDERLINE-HIGH RISK: 130- 159 MG/DL 110-129 MG/DL HIGH RISK: >160 MG/DL >130 MG/DL *CHILDREN AND ADOLESCENTS REPRESENTS INDIVIDUALA AGED 2-19 YEARS EXCLUSIVE. LDL_C 101 Calc 75-129 [facility] ([facility] CHRONIC KIDNEY DISEASE STAGING PER NKF: MALE GFR INTERPRETATION: 20-49 YRS: [...] DESIRABLE: <130 MG/DL <110 MG/DL BORDERLINE-HIGH RISK: 130- 159 MG/DL 110-129 MG/DL HIGH RISK: >160 MG/DL >130 MG/DL *CHILDREN AND ADOLESCENTS REPRESENTS INDIVIDUALA AGED 2-19 YEARS EXCLUSIVE. Cholesterol in HDL [Mass/volume] in Serum or Plasma 53 mg/dL 45-65 [facility] ([facility] CHRONIC KIDNEY DISEASE STAGING PER NKF: MALE GFR INTERPRETATION: 20-49 YRS: [...] DESIRABLE: <130 MG/DL <110 MG/DL BORDERLINE-HIGH RISK: 130- 159 MG/DL 110-129 MG/DL HIGH RISK: >160 MG/DL >130 MG/DL *CHILDREN AND ADOLESCENTS REPRESENTS INDIVIDUALA AGED 2-19 YEARS EXCLUSIVE. Cho/HDL Ratio 3.4 CALC KALLIE ([facility] CHRONIC KIDNEY DISEASE STAGING PER NKF: MALE GFR INTERPRETATION: 20-49 YRS: [...] DESIRABLE: <130 MG/DL <110 MG/DL BORDERLINE-HIGH RISK: 130- 159 MG/DL 110-129 MG/DL HIGH RISK: >160 MG/DL >130 MG/DL *CHILDREN AND ADOLESCENTS REPRESENTS INDIVIDUALA AGED 2-19 YEARS EXCLUSIVE. ID Date Data Source [id number] 07/10/2020 09:15:00 AM EDT KALLIE ([facility] Name Value Range Interpretation Code Description Data Jackie rce(s) Supporting Document(s) BUN 11 mg/dL 8- KALLIE ([facility] CHRONIC KIDNEY DISEASE STAGING PER NKF: MALE GFR INTERPRETATION: 20-49 YRS: [...] DESIRABLE: <130 MG/DL <110 MG/DL BORDERLINE-HIGH RISK: 130- 159 MG/DL 110-129 MG/DL HIGH RISK: >160 MG/DL >130 MG/DL *CHILDREN AND ADOLESCENTS REPRESENTS INDIVIDUALA AGED 2-19 YEARS EXCLUSIVE. Glu 120 mg/dL 70-110 Above high normal MEDENT ([facility] CHRONIC KIDNEY DISEASE STAGING PER NKF: MALE GFR INTERPRETATION: 20-49 YRS: [...] DESIRABLE: <130 MG/DL <110 MG/DL BORDERLINE-HIGH RISK: 130- 159 MG/DL 110-129 MG/DL HIGH RISK: >160 MG/DL >130 MG/DL *CHILDREN AND ADOLESCENTS REPRESENTS INDIVIDUALA AGED 2-19 YEARS EXCLUSIVE. BUN/Creatinine Ratio 11.9 CALC MEDENT ([facility] CHRONIC KIDNEY DISEASE STAGING PER NKF: MALE GFR INTERPRETATION: 20-49 YRS: [...] DESIRABLE: <130 MG/DL <110 MG/DL BORDERLINE-HIGH RISK: 130- 159 MG/DL 110-129 MG/DL HIGH RISK: >160 MG/DL >130 MG/DL *CHILDREN AND ADOLESCENTS REPRESENTS INDIVIDUALA AGED 2-19 YEARS EXCLUSIVE. Creat 0.9 mg/dL 0.5-1.0 [facility] ([facility] CHRONIC KIDNEY DISEASE STAGING PER NKF: MALE GFR INTERPRETATION: 20-49 YRS: [...] DESIRABLE: <130 MG/DL <110 MG/DL BORDERLINE-HIGH RISK: 130- 159 MG/DL 110-129 MG/DL HIGH RISK: >160 MG/DL >130 MG/DL *CHILDREN AND ADOLESCENTS REPRESENTS INDIVIDUALA AGED 2-19 YEARS EXCLUSIVE. Na 142 mmol/L 136-145 [facility] ([facility] CHRONIC KIDNEY DISEASE STAGING PER NKF: MALE GFR INTERPRETATION: 20-49 YRS: [...] DESIRABLE: <130 MG/DL <110 MG/DL BORDERLINE-HIGH RISK: 130- 159 MG/DL 110-129 MG/DL HIGH RISK: >160 MG/DL >130 MG/DL *CHILDREN AND ADOLESCENTS REPRESENTS INDIVIDUALA AGED 2-19 YEARS EXCLUSIVE. K 4.1 mmol/L 3.5-5.1 [facility] ([facility] CHRONIC KIDNEY DISEASE STAGING PER NKF: MALE GFR INTERPRETATION: 20-49 YRS: [...] DESIRABLE: <130 MG/DL <110 MG/DL BORDERLINE-HIGH RISK: 130- 159 MG/DL 110-129 MG/DL HIGH RISK: >160 MG/DL >130 MG/DL *CHILDREN AND ADOLESCENTS REPRESENTS INDIVIDUALA AGED 2-19 YEARS EXCLUSIVE. CL 105.7 mmol/L 98.0-107.0 [facility] CHRONIC KIDNEY DISEASE STAGING PER NKF: MALE GFR INTERPRETATION: 20-49 YRS: [...] DESIRABLE: <130 MG/DL <110 MG/DL BORDERLINE-HIGH RISK: 130- 159 MG/DL 110-129 MG/DL HIGH RISK: >160 MG/DL >130 MG/DL *CHILDREN AND ADOLESCENTS REPRESENTS INDIVIDUALA AGED 2-19 YEARS EXCLUSIVE. Co2 23.6 mmol/L 22.0-29.0 MEDENT ([facility] CHRONIC KIDNEY DISEASE STAGING PER NKF: MALE GFR INTERPRETATION: 20-49 YRS: [...] DESIRABLE: <130 MG/DL <110 MG/DL BORDERLINE-HIGH RISK: 130- 159 MG/DL 110-129 MG/DL HIGH RISK: >160 MG/DL >130 MG/DL *CHILDREN AND ADOLESCENTS REPRESENTS INDIVIDUALA AGED 2-19 YEARS EXCLUSIVE. CA 9.4 mg/dL 8.6-10.2 [facility] ([facility] CHRONIC KIDNEY DISEASE STAGING PER NKF: MALE GFR INTERPRETATION: 20-49 YRS: [...] DESIRABLE: <130 MG/DL <110 MG/DL BORDERLINE-HIGH RISK: 130- 159 MG/DL 110-129 MG/DL HIGH RISK: >160 MG/DL >130 MG/DL *CHILDREN AND ADOLESCENTS REPRESENTS INDIVIDUALA AGED 2-19 YEARS EXCLUSIVE. Alb 4.4 g/dL 3.4-4.8 [facility] ([facility] CHRONIC KIDNEY DISEASE STAGING PER NKF: MALE GFR INTERPRETATION: 20-49 YRS: [...] DESIRABLE: <130 MG/DL <110 MG/DL BORDERLINE-HIGH RISK: 130- 159 MG/DL 110-129 MG/DL HIGH RISK: >160 MG/DL >130 MG/DL *CHILDREN AND ADOLESCENTS REPRESENTS INDIVIDUALA AGED 2-19 YEARS EXCLUSIVE. A/G Ratio 2.1 CALC [facility] ([facility] CHRONIC KIDNEY DISEASE STAGING PER NKF: MALE GFR INTERPRETATION: 20-49 YRS: [...] DESIRABLE: <130 MG/DL <110 MG/DL BORDERLINE-HIGH RISK: 130- 159 MG/DL 110-129 MG/DL HIGH RISK: >160 MG/DL >130 MG/DL *CHILDREN AND ADOLESCENTS REPRESENTS INDIVIDUALA AGED 2-19 YEARS EXCLUSIVE. TP 6.5 g/dL 6.6-8.7 Below low normal [facility] ( [facility] CHRONIC KIDNEY DISEASE STAGING PER NKF: MALE GFR INTERPRETATION: 20-49 YRS: [...] DESIRABLE: <130 MG/DL <110 MG/DL BORDERLINE-HIGH RISK: 130- 159 MG/DL 110-129 MG/DL HIGH RISK: >160 MG/DL >130 MG/DL *CHILDREN AND ADOLESCENTS REPRESENTS INDIVIDUALA AGED 2-19 YEARS EXCLUSIVE. Alp 94.0 U/L 35-129 [facility] ([facility] CHRONIC KIDNEY DISEASE STAGING PER NKF: MALE GFR INTERPRETATION: 20-49 YRS: [...] DESIRABLE: <130 MG/DL <110 MG/DL BORDERLINE-HIGH RISK: 130- 159 MG/DL 110-129 MG/DL HIGH RISK: >160 MG/DL >130 MG/DL *CHILDREN AND ADOLESCENTS REPRESENTS INDIVIDUALA AGED 2-19 YEARS EXCLUSIVE. Alt (SGPT) 17 U/L 0-41 MEDLESLI ([facility] CHRONIC KIDNEY DISEASE STAGING PER NKF: MALE GFR INTERPRETATION: 20-49 YRS: [...] DESIRABLE: <130 MG/DL <110 MG/DL BORDERLINE-HIGH RISK: 130- 159 MG/DL 110-129 MG/DL HIGH RISK: >160 MG/DL >130 MG/DL *CHILDREN AND ADOLESCENTS REPRESENTS INDIVIDUALA AGED 2-19 YEARS EXCLUSIVE. Globulin 2.1 CALC [facility] ([facility] CHRONIC KIDNEY DISEASE STAGING PER NKF: MALE GFR INTERPRETATION: 20-49 YRS: [...] DESIRABLE: <130 MG/DL <110 MG/DL BORDERLINE-HIGH RISK: 130- 159 MG/DL 110-129 MG/DL HIGH RISK: >160 MG/DL >130 MG/DL *CHILDREN AND ADOLESCENTS REPRESENTS INDIVIDUALA AGED 2-19 YEARS EXCLUSIVE. Tbili 0.35 mg/dL 0.0-1.2 [facility] ([facility] CHRONIC KIDNEY DISEASE STAGING PER NKF: MALE GFR INTERPRETATION: 20-49 YRS: [...] DESIRABLE: <130 MG/DL <110 MG/DL BORDERLINE-HIGH RISK: 130- 159 MG/DL 110-129 MG/DL HIGH RISK: >160 MG/DL >130 MG/DL *CHILDREN AND ADOLESCENTS REPRESENTS INDIVIDUALA AGED 2-19 YEARS EXCLUSIVE. Ast (Sgot) 15 U/L 0-40 [facility] ([facility] CHRONIC KIDNEY DISEASE STAGING PER NKF: MALE GFR INTERPRETATION: 20-49 YRS: [...] DESIRABLE: <130 MG/DL <110 MG/DL BORDERLINE-HIGH RISK: 130- 159 MG/DL 110-129 MG/DL HIGH RISK: >160 MG/DL >130 MG/DL *CHILDREN AND ADOLESCENTS REPRESENTS INDIVIDUALA AGED 2-19 YEARS EXCLUSIVE. Anion Gap 17 mmol/L MED[facility] ([facility] CHRONIC KIDNEY DISEASE STAGING PER NKF: MALE GFR INTERPRETATION: 20-49 YRS: [...] DESIRABLE: <130 MG/DL <110 MG/DL BORDERLINE-HIGH RISK: 130- 159 MG/DL 110-129 MG/DL HIGH RISK: >160 MG/DL >130 MG/DL *CHILDREN AND ADOLESCENTS REPRESENTS INDIVIDUALA AGED 2-19 YEARS EXCLUSIVE. Osmolality-Calculated 283.2 CALC MED ENT ([facility] CHRONIC KIDNEY DISEASE STAGING PER NKF: MALE GFR INTERPRETATION: 20-49 YRS: [...] DESIRABLE: <130 MG/DL <110 MG/DL BORDERLINE-HIGH RISK: 130- 159 MG/DL 110-129 MG/DL HIGH RISK: >160 MG/DL >130 MG/DL *CHILDREN AND ADOLESCENTS REPRESENTS INDIVIDUALA AGED 2-19 YEARS EXCLUSIVE. eGFR 77 # [facility] ( [facility] CHRONIC KIDNEY DISEASE STAGING PER NKF: MALE GFR INTERPRETATION: 20-49 YRS: [...] DESIRABLE: <130 MG/DL <110 MG/DL BORDERLINE-HIGH RISK: 130- 159 MG/DL 110-129 MG/DL HIGH RISK: >160 MG/DL >130 MG/DL *CHILDREN AND ADOLESCENTS REPRESENTS INDIVIDUALA AGED 2-19 YEARS EXCLUSIVE. eGFR Non-Afr. Dominican 67 # KALLIE ([facility] CHRONIC KIDNEY DISEASE STAGING PER NKF: MALE GFR INTERPRETATION: 20-49 YRS: [...] DESIRABLE: <130 MG/DL <110 MG/DL BORDERLINE-HIGH RISK: 130- 159 MG/DL 110-129 MG/DL HIGH RISK: >160 MG/DL >130 MG/DL *CHILDREN AND ADOLESCENTS REPRESENTS INDIVIDUALA AGED 2-19 YEARS EXCLUSIVE. ID Date Data Source [id number] 03/08/2020 01:15:00 PM EST KALLIE ([facility] Name Value Range Interpretation Code Description Data Jackie rce(s) Supporting Document(s) Chol 176 mg/dL 0-200 KALLIE ([facility] CHRONIC KIDNEY DISEASE STAGING PER NKF: MALE GFR INTERPRETATION: 20-49 YRS: [...] DESIRABLE: <130 MG/DL <110 MG/DL BORDERLINE-HIGH RISK: 130- 159 MG/DL 110-129 MG/DL HIGH RISK: >160 MG/DL >130 MG/DL *CHILDREN AND ADOLESCENTS REPRESENTS INDIVIDUALA AGED 2-19 YEARS EXCLUSIVE. Trig 123 mg/dL 40-200 [facility] ([facility] CHRONIC KIDNEY DISEASE STAGING PER NKF: MALE GFR INTERPRETATION: 20-49 YRS: [...] DESIRABLE: <130 MG/DL <110 MG/DL BORDERLINE-HIGH RISK: 130- 159 MG/DL 110-129 MG/DL HIGH RISK: >160 MG/DL >130 MG/DL *CHILDREN AND ADOLESCENTS REPRESENTS INDIVIDUALA AGED 2-19 YEARS EXCLUSIVE. Cholesterol in HDL [Mass/volume] in Serum or Plasma 54 mg/dL 45-65 [facility] ([facility] CHRONIC KIDNEY DISEASE STAGING PER NKF: MALE GFR INTERPRETATION: 20-49 YRS: [...] DESIRABLE: <130 MG/DL <110 MG/DL BORDERLINE-HIGH RISK: 130- 159 MG/DL 110-129 MG/DL HIGH RISK: >160 MG/DL >130 MG/DL *CHILDREN AND ADOLESCENTS REPRESENTS INDIVIDUALA AGED 2-19 YEARS EXCLUSIVE. LDL_C 98 Calc 75-129 [facility] ([facility] CHRONIC KIDNEY DISEASE STAGING PER NKF: MALE GFR INTERPRETATION: 20-49 YRS: [...] DESIRABLE: <130 MG/DL <110 MG/DL BORDERLINE-HIGH RISK: 130- 159 MG/DL 110-129 MG/DL HIGH RISK: >160 MG/DL >130 MG/DL *CHILDREN AND ADOLESCENTS REPRESENTS INDIVIDUALA AGED 2-19 YEARS EXCLUSIVE. Cho/HDL Ratio 3.3 CALC [facility] ([facility] CHRONIC KIDNEY DISEASE STAGING PER NKF: MALE GFR INTERPRETATION: 20-49 YRS: [...] DESIRABLE: <130 MG/DL <110 MG/DL BORDERLINE-HIGH RISK: 130- 159 MG/DL 110-129 MG/DL HIGH RISK: >160 MG/DL >130 MG/DL *CHILDREN AND ADOLESCENTS REPRESENTS INDIVIDUALA AGED 2-19 YEARS EXCLUSIVE. ID Date Data Source [id number] 03/08/2020 01:15:00 PM EST MEDENT ([facility] Name Value Range Interpretation Code Description Data Jackie rce(s) Supporting Document(s) Glu 103 mg/dL 70-110 [facility] CHRONIC KIDNEY DISEASE STAGING PER NKF: MALE GFR INTERPRETATION: 20-49 YRS: [...] DESIRABLE: <130 MG/DL <110 MG/DL BORDERLINE-HIGH RISK: 130- 159 MG/DL 110-129 MG/DL HIGH RISK: >160 MG/DL >130 MG/DL *CHILDREN AND ADOLESCENTS REPRESENTS INDIVIDUALA AGED 2-19 YEARS EXCLUSIVE. BUN 12 mg/dL 8-23 MED[facility] ([facility] CHRONIC KIDNEY DISEASE STAGING PER NKF: MALE GFR INTERPRETATION: 20-49 YRS: [...] DESIRABLE: <130 MG/DL <110 MG/DL BORDERLINE-HIGH RISK: 130- 159 MG/DL 110-129 MG/DL HIGH RISK: >160 MG/DL >130 MG/DL *CHILDREN AND ADOLESCENTS REPRESENTS INDIVIDUALA AGED 2-19 YEARS EXCLUSIVE. BUN/Creatinine Ratio 12.5 CALC MEDENT ([facility] CHRONIC KIDNEY DISEASE STAGING PER NKF: MALE GFR INTERPRETATION: 20-49 YRS: [...] DESIRABLE: <130 MG/DL <110 MG/DL BORDERLINE-HIGH RISK: 130- 159 MG/DL 110-129 MG/DL HIGH RISK: >160 MG/DL >130 MG/DL *CHILDREN AND ADOLESCENTS REPRESENTS INDIVIDUALA AGED 2-19 YEARS EXCLUSIVE. Creat 0.9 mg/dL 0.5-1.0 [facility] ([facility] CHRONIC KIDNEY DISEASE STAGING PER NKF: MALE GFR INTERPRETATION: 20-49 YRS: [...] DESIRABLE: <130 MG/DL <110 MG/DL BORDERLINE-HIGH RISK: 130- 159 MG/DL 110-129 MG/DL HIGH RISK: >160 MG/DL >130 MG/DL *CHILDREN AND ADOLESCENTS REPRESENTS INDIVIDUALA AGED 2-19 YEARS EXCLUSIVE. Na 138 mmol/L 136-145 [facility] ([facility] CHRONIC KIDNEY DISEASE STAGING PER NKF: MALE GFR INTERPRETATION: 20-49 YRS: [...] DESIRABLE: <130 MG/DL <110 MG/DL BORDERLINE-HIGH RISK: 130- 159 MG/DL 110-129 MG/DL HIGH RISK: >160 MG/DL >130 MG/DL *CHILDREN AND ADOLESCENTS REPRESENTS INDIVIDUALA AGED 2-19 YEARS EXCLUSIVE. K 4.0 mmol/L 3.5-5.1 MEDENT ([facility] CHRONIC KIDNEY DISEASE STAGING PER NKF: MALE GFR INTERPRETATION: 20-49 YRS: [...] DESIRABLE: <130 MG/DL <110 MG/DL BORDERLINE-HIGH RISK: 130- 159 MG/DL 110-129 MG/DL HIGH RISK: >160 MG/DL >130 MG/DL *CHILDREN AND ADOLESCENTS REPRESENTS INDIVIDUALA AGED 2-19 YEARS EXCLUSIVE. CL 102.3 mmol/L 98.0-107.0 [facility] ([facility] CHRONIC KIDNEY DISEASE STAGING PER NKF: MALE GFR INTERPRETATION: 20-49 YRS: [...] DESIRABLE: <130 MG/DL <110 MG/DL BORDERLINE-HIGH RISK: 130- 159 MG/DL 110-129 MG/DL HIGH RISK: >160 MG/DL >130 MG/DL *CHILDREN AND ADOLESCENTS REPRESENTS INDIVIDUALA AGED 2-19 YEARS EXCLUSIVE. Co2 23.3 mmol/L 22.0-29.0 MEDENT ([facility] CHRONIC KIDNEY DISEASE STAGING PER NKF: MALE GFR INTERPRETATION: 20-49 YRS: [...] DESIRABLE: <130 MG/DL <110 MG/DL BORDERLINE-HIGH RISK: 130- 159 MG/DL 110-129 MG/DL HIGH RISK: >160 MG/DL >130 MG/DL *CHILDREN AND ADOLESCENTS REPRESENTS INDIVIDUALA AGED 2-19 YEARS EXCLUSIVE. CA 9.6 mg/dL 8.6-10.2 MEDLESLI ([facility] CHRONIC KIDNEY DISEASE STAGING PER NKF: MALE GFR INTERPRETATION: 20-49 YRS: [...] DESIRABLE: <130 MG/DL <110 MG/DL BORDERLINE-HIGH RISK: 130- 159 MG/DL 110-129 MG/DL HIGH RISK: >160 MG/DL >130 MG/DL *CHILDREN AND ADOLESCENTS REPRESENTS INDIVIDUALA AGED 2-19 YEARS EXCLUSIVE. TP 6.7 g/dL 6.6-8.7 [facility] ([facility] CHRONIC KIDNEY DISEASE STAGING PER NKF: MALE GFR INTERPRETATION: 20-49 YRS: [...] DESIRABLE: <130 MG/DL <110 MG/DL BORDERLINE-HIGH RISK: 130- 159 MG/DL 110-129 MG/DL HIGH RISK: >160 MG/DL >130 MG/DL *CHILDREN AND ADOLESCENTS REPRESENTS INDIVIDUALA AGED 2-19 YEARS EXCLUSIVE. Alb 4.5 g/dL 3.4-4.8 [facility] ([facility] CHRONIC KIDNEY DISEASE STAGING PER NKF: MALE GFR INTERPRETATION: 20-49 YRS: [...] DESIRABLE: <130 MG/DL <110 MG/DL BORDERLINE-HIGH RISK: 130- 159 MG/DL 110-129 MG/DL HIGH RISK: >160 MG/DL >130 MG/DL *CHILDREN AND ADOLESCENTS REPRESENTS INDIVIDUALA AGED 2-19 YEARS EXCLUSIVE. A/G Ratio 2.0 CALC [facility] ([facility] CHRONIC KIDNEY DISEASE STAGING PER NKF: MALE GFR INTERPRETATION: 20-49 YRS: [...] DESIRABLE: <130 MG/DL <110 MG/DL BORDERLINE-HIGH RISK: 130- 159 MG/DL 110-129 MG/DL HIGH RISK: >160 MG/DL >130 MG/DL *CHILDREN AND ADOLESCENTS REPRESENTS INDIVIDUALA AGED 2-19 YEARS EXCLUSIVE. Globulin 2.2 CALC [facility] ([facility] CHRONIC KIDNEY DISEASE STAGING PER NKF: MALE GFR INTERPRETATION: 20-49 YRS: [...] DESIRABLE: <130 MG/DL <110 MG/DL BORDERLINE-HIGH RISK: 130- 159 MG/DL 110-129 MG/DL HIGH RISK: >160 MG/DL >130 MG/DL *CHILDREN AND ADOLESCENTS REPRESENTS INDIVIDUALA AGED 2-19 YEARS EXCLUSIVE. Alp 85.7 U/L 35-129 [facility] ([facility] CHRONIC KIDNEY DISEASE STAGING PER NKF: MALE GFR INTERPRETATION: 20-49 YRS: [...] DESIRABLE: <130 MG/DL <110 MG/DL BORDERLINE-HIGH RISK: 130- 159 MG/DL 110-129 MG/DL HIGH RISK: >160 MG/DL >130 MG/DL *CHILDREN AND ADOLESCENTS REPRESENTS INDIVIDUALA AGED 2-19 YEARS EXCLUSIVE. Alt (SGPT) 19 U/L 0-41 [facility] CHRONIC KIDNEY DISEASE STAGING PER NKF: MALE GFR INTERPRETATION: 20-49 YRS: [...] DESIRABLE: <130 MG/DL <110 MG/DL BORDERLINE-HIGH RISK: 130- 159 MG/DL 110-129 MG/DL HIGH RISK: >160 MG/DL >130 MG/DL *CHILDREN AND ADOLESCENTS REPRESENTS INDIVIDUALA AGED 2-19 YEARS EXCLUSIVE. Osmolality-Calculated 275.5 CALC MED ENT ([facility] CHRONIC KIDNEY DISEASE STAGING PER NKF: MALE GFR INTERPRETATION: 20-49 YRS: [...] DESIRABLE: <130 MG/DL <110 MG/DL BORDERLINE-HIGH RISK: 130- 159 MG/DL 110-129 MG/DL HIGH RISK: >160 MG/DL >130 MG/DL *CHILDREN AND ADOLESCENTS REPRESENTS INDIVIDUALA AGED 2-19 YEARS EXCLUSIVE. Tbili 0.41 mg/dL 0.0-1.2 [facility] ([facility] CHRONIC KIDNEY DISEASE STAGING PER NKF: MALE GFR INTERPRETATION: 20-49 YRS: [...] DESIRABLE: <130 MG/DL <110 MG/DL BORDERLINE-HIGH RISK: 130- 159 MG/DL 110-129 MG/DL HIGH RISK: >160 MG/DL >130 MG/DL *CHILDREN AND ADOLESCENTS REPRESENTS INDIVIDUALA AGED 2-19 YEARS EXCLUSIVE. Ast (Sgot) 17 U/L 0-40 [facility] ([facility] CHRONIC KIDNEY DISEASE STAGING PER NKF: MALE GFR INTERPRETATION: 20-49 YRS: [...] DESIRABLE: <130 MG/DL <110 MG/DL BORDERLINE-HIGH RISK: 130- 159 MG/DL 110-129 MG/DL HIGH RISK: >160 MG/DL >130 MG/DL *CHILDREN AND ADOLESCENTS REPRESENTS INDIVIDUALA AGED 2-19 YEARS EXCLUSIVE. eGFR 77 # [facility] ( [facility] CKD-EPI Anion Gap 16 mmol/L [facility] ([facility] CHRONIC KIDNEY DISEASE STAGING PER NKF: MALE GFR INTERPRETATION: 20-49 YRS: [...] DESIRABLE: <130 MG/DL <110 MG/DL BORDERLINE-HIGH RISK: 130- 159 MG/DL 110-129 MG/DL HIGH RISK: >160 MG/DL >130 MG/DL *CHILDREN AND ADOLESCENTS REPRESENTS INDIVIDUALA AGED 2-19 YEARS EXCLUSIVE. eGFR Non-Afr. Dominican 67 # KALLIE ([facility] CKD-EPI Procedure Social History No Information Vital Signs ID Date Data Source UNK Name Value Range Interpretation Code Description Data Source(s) Systolic blood pressure 128 mm[Hg] 128 mm[Hg] Justine PEARSON ([facility] [place] body weight 150 [lb_av] 150 [lb_av] MEDEN T ([facility] Diastolic blood pressure 82 mm[Hg] 82 mm[Hg] KALLIE ([facility] Body temperature 97.6 [degF] 97.6 [degF] KALLIE ([facility] Heart rate 118 /min 118 /min KALLIE ([facility] Respiratory rate 18 /min 18 /min KALLIE ( [facility] Body height 70 [in_i] 70 [in_i] KALLIE ([facility] 5'10" Body weight 289.00 [lb_av] 289.00 [lb_av] MEDEN T ([facility] Body mass index (BMI) [Ratio] 41.5 kg/m2 41.5 k g/m2 KALLIE ([facility] Oxygen saturation in Arterial blood by Pulse oximetry 98 % 98 % KALLIE ([facility] Systolic blood pressure 146 mm[Hg] 146 mm[Hg] Justine PEARSON ([facility] Body height 70 [in_i] 70 [in_i] MEDENT ([facility] 5'10" Oxygen saturation in Arterial blood by Pulse oximetry 94 % 94 % MEDENT ([facility] Body temperature 97.8 [degF] 97.8 [degF] MEDENT ([facility] Heart rate 97 /min 97 /min MEDENT ([facility] Diastolic blood pressure 88 mm[Hg] 88 mm[Hg] MEDENT ([facility] Respiratory rate 16 /min 16 /min MEDENT ( [facility] Body weight 283.00 [lb_av] 283.00 [lb_av] MEDEN T ([facility] [place] body weight 150 [lb_av] 150 [lb_av] MEDEN T ([facility] Body mass index (BMI) [Ratio] 40.6 kg/m2 40.6 k g/m2 MEDENT ([facility] Body height 70 [in_i] 70 [in_i] MEDENT ([facility] 5'10" [place] body weight 150 [lb_av] 150 [lb_av] MEDEN T ([facility] Systolic blood pressure 124 mm[Hg] 124 mm[Hg] M EDENT ([facility] Diastolic blood pressure 76 mm[Hg] 76 mm[Hg] MEDENT ([facility] Body weight 275.00 [lb_av] 275.00 [lb_av] MEDEN T ([facility] Body mass index (BMI) [Ratio] 39.5 kg/m2 39.5 k g/m2 MEDENT ([facility] Oxygen saturation in Arterial blood by Pulse oximetry 96 % 96 % MEDENT ([facility] Body temperature 97.9 [degF] 97.9 [degF] MEDENT ([facility] Heart rate 104 /min 104 /min MEDENT ([facility] Respiratory rate 18 /min 18 /min MEDENT ( [facility] Heart rate 96 /min 96 /min MEDENT ([facility] Diastolic blood pressure 80 mm[Hg] 80 mm[Hg] MEDENT ([facility] Body height 70 [in_i] 70 [in_i] MEDENT ([facility] 5'10" Respiratory rate 18 /min 18 /min MEDENT ( [facility] Body mass index (BMI) [Ratio] 40.0 kg/m2 40.0 k g/m2 [facility] ([facility] [place] body weight 150 [lb_av] 150 [lb_av] [facility] T ([facility] Oxygen saturation in Arterial blood by Pulse oximetry 95 % 95 % [facility] ([facility] Body temperature 97.3 [degF] 97.3 [degF] [facility] ([facility] Systolic blood pressure 124 mm[Hg] 124 mm[Hg] M [facility] ([facility] Body weight 279.00 [lb_av] 279.00 [lb_av] [facility] T ([facility] Systolic blood pressure 130 mm[Hg] 130 mm[Hg] M [facility] ([facility], ) Diastolic blood pressure 80 mm[Hg] 80 mm[Hg] [facility] ([facility], ) Heart rate 113 /min 113 /min [facility] ([facility], ) Oxygen saturation in Arterial blood by Pulse oximetry 96 % 96 % [facility] ([facility], ) Room Air Body height 71.5 [in_i] 71.5 [in_i] [facility] ([facility]) 5'11.50" Body weight 280.00 [lb_av] 280.00 [lb_av] [facility] T ([facility]) Body mass index (BMI) [Ratio] 38.5 kg/m2 38.5 k g/m2 [facility] ([facility], ) [place] body weight 155 [lb_av] 155 [lb_av] [facility] T ([facility]) Body weight 127.008 kg 127.008 kg [facility] ([facility], ) Body surface area Derived from formula 2.45 m2 2.45 m2 [facility] ([facility], ) Systolic blood pressure 124 mm[Hg] 124 mm[Hg] M [facility] ([facility] Heart rate 116 /min 116 /min [facility] ([facility] Body height 70 [in_i] 70 [in_i] [facility] ([facility] 5'10" Diastolic blood pressure 74 mm[Hg] 74 mm[Hg] [facility] ([facility] Body temperature 98.0 [degF] 98.0 [degF] [facility] ([facility] Respiratory rate 18 /min 18 /min [facility] ( [facility] Body weight 278.00 [lb_av] 278.00 [lb_av] [facility] T ([facility] [place] body weight 150 [lb_av] 150 [lb_av] [facility] T ([facility] Body mass index (BMI) [Ratio] 39.9 kg/m2 39.9 k g/m2 [facility] ([facility] Oxygen saturation in Arterial blood by Pulse oximetry 98 % 98 % [facility] ([facility] Oxygen saturation in Arterial blood by Pulse oximetry 96 % 96 % [facility] ([facility] Systolic blood pressure 156 mm[Hg] 156 mm[Hg] M [facility] ([facility] Diastolic blood pressure 76 mm[Hg] 76 mm[Hg] [facility] ([facility] Body temperature 97.7 [degF] 97.7 [degF] [facility] ([facility] Heart rate 98 /min 98 /min [facility] ([facility] Respiratory rate 18 /min 18 /min [facility] ( [facility] Body height 70 [in_i] 70 [in_i] [facility] ([facility] 5'10" Body weight 282.00 [lb_av] 282.00 [lb_av] [facility] T ([facility] [place] body weight 150 [lb_av] 150 [lb_av] [facility] T ([facility] Body mass index (BMI) [Ratio] 40.5 kg/m2 40.5 k g/m2 [facility] ([facility] Systolic blood pressure 150 mm[Hg] 150 mm[Hg] M [facility] ([facility] Respiratory rate 16 /min 16 /min [facility] ( [facility] Heart rate 90 /min 90 /min [facility] Diastolic blood pressure 90 mm[Hg] 90 mm[Hg] [facility] Oxygen saturation in Arterial blood by Pulse oximetry 97 % 97 % [facility] ([facility], ) Room Air Body height 71.5 [in_i] 71.5 [in_i] [facility] ([facility], ) 5'11.50" Body weight 279.00 [lb_av] 279.00 [lb_av] [facility] T ([facility], ) Body mass index (BMI) [Ratio] 38.4 kg/m2 38.4 k g/m2 [facility] ([facility], ) [place] body weight 155 [lb_av] 155 [lb_av] [facility] T ([facility]) Body weight 126.554 kg 126.554 kg [facility] ([facility]) Body surface area Derived from formula 2.44 m2 2.44 m2 [facility] ([facility], ) Systolic blood pressure 120 mm[Hg] 120 mm[Hg] M [facility] ([facility], ) Diastolic blood pressure 82 mm[Hg] 82 mm[Hg] [facility] ([facility], ) Heart rate 99 /min 99 /min [facility] ([facility], )
[2020-12-08] MEDS ORDERED: MIRT-62 (09:25)
[2020-12-08] MEDS ORDERED: AMLO1TAB24 (09:25)
--- NOTE | 2020-12-08 10:29 | REP ---
INDICATION: chest pain. COMPARISON: 02/18/2019 a two view exam TECHNIQUE: Portable FINDINGS: The technique utilized in obtaining the radiograph has magnified the cardiac silhouette and accentuated the interstitial markings. The superior mediastinal structures are midline. The cardiac silhouette is unremarkable in size, shape, and position. The diaphragmatic surfaces of the lungs are regular, and the costophrenic angles are clear. The pulmonary garcía are clear. The imaged osseous structures are intact. IMPRESSION: There is no acute cardiopulmonary disease. <Electronically signed by Jorje Mcginnis > 12/08/20 [id number]
--- OUTSIDE RECORDS SUMMARY | 2020-12-08 10:30 | CCD ---
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 If you continue you may have access to information: Regarding HIV / AIDS; Provided by facilities licensed or operated by the [facility] Office of Mental Health; or Provided by the [facility] Office for People With Developmental Disabilities. If such information is present, then the following [facility] mandated warning applies: This information has been [...] law may result in a fine or care home sentence or both. A general authorization for the release of medical or other information is NOT sufficient authorization for further disc losure. Family History Family Member Name Family Member Gender Family Member Status Date o f Status Description Data Source(s) Unknown Unknown Problem MEDENT ([facility] Unknown Male Problem MEDENT ([facility] () Unknown Male Problem MEDENT ([facility]) Unknown Male Problem MEDENT ([facility] ) Unknown Unknown Encounters Encounter Providers Location Date Indications Data Source(s ) Outpatient Attender: DANIEL BEGUM MD [place] [facility] 03:40:00 PM EDT [facility] ([facility] Outpatient Attender: DANIEL BEGUM MD [place] 12/2020 11:30:00 AM EDT MEDENT ([facility] Outpatient Attender: DANIEL BEGUM MD [place] 09/2020 01:30:00 PM EDT MED[facility] ([facility] Outpatient Attender: Lucero BENAVIDES 09/14/19 12:08:12 PM EDT - 09/13/2020 12:50:02 PM EDT Doc[facility] ([facility] ) Outpatient Attender: DANIEL BEGUM MD [place] [facility] 03/2020 09:00:00 AM EDT MEDENT ([facility] Outpatient Attender: Alberto Dee/Qing/Joe/Eliceo judd 06/03/2020 09:00:00 AM EDT MEDENT ([facility]) Outpatient Attender: DANIEL BEGUM MD [place] [facility] 03/2020 10:20:00 AM EDT MEDENT ([facility] Outpatient Attender: DANIEL BEGUM MD [place] 02/2020 08:30:00 AM EST MEDENT ([facility] Outpatient Attender: DANIEL BEGUM MD [place] 12:00:00 PM EST MEDENT ([facility] Immunizations Vaccine Date Status Description Data Source(s) New in 2012. IIV4 10/16/2020 01:39:00 PM EDT completed MEDENT ([facility] COVID-19 VACCINE Moderna 04/29/2020 12:00:00 AM EDT completed [facility] Vaccine Series Complete: YESThis Data wa s Submitted to [facility] Via [facility]. COVID-19 VACCINE, MRNA-1273, LNP-S (MODERNA)/PF 04/29/2020 1 2:00:00 AM EDT completed [facility] COVID-19 VACCINE, MRNA-1273, LNP-S (MODERNA)/PF 04/04/2020 1 2:00:00 AM EST completed [facility] pneumococcal polysaccharide PPV23 03/08/2020 12:10:00 PM EST comple catracho MEDENT ([facility] INFLUENZA VIRUS VACCINE QUADRIVALENT 2020-21 (6 MOS AN D UP) 11/02/2019 12:00:00 AM EDT completed [facility] Medications Medication Brand Name Start Date [...] 11/22/2020 12:00:00 AM EDT ORAL active MEDENT ([facility] 100 mg 11/22/2020 12:00:00 AM EDT capsule 14 TAKE ONE CAPSULE BY MOUTH TWICE A DAY FOR 7 DAYS TAKE ONE CAPSULE BY MOUTH TWICE A DAY FOR 7 DAYS SOLD: 11/22/2020 [facility] Ciprofloxacin 500 MG Oral Tablet [Cipro] Cipro 11/18/2020 12:00: 00 AM EDT ORAL completed MEDENT ([facility] Ciprofloxacin 500 MG Oral Tablet [...] TABLET BY MOUTH EVERY DAY SOLD: 10/21/2020 [facility] Daily 10/16/2020 12:00:00 AM EDT a ctive MEDENT ([facility] 15 mg 10/16/2020 12:00:00 AM EDT tablet 90 TAKE ONE TABLET BY MOUTH AT BEDTIME TAKE ONE TABLET BY MOUTH AT BEDTIME SOLD: 10/16/2020 [facility] Psyllium Husk 10/16/2020 12:00:00 AM EDT acti ve MEDENT ([facility] Mirtazapine 15 MG Oral Tablet Mirtazapine 10/16/2020 12:00:00 AM EDT ORAL active MEDENT ([facility] 40 mg 07/22/2020 12:00:00 AM [...] 04/08/2020 12:00:00 A M EST active MEDENT ([facility] 5 mg 04/08/2020 12:00:00 AM [...] 12:00:00 AM EST ORAL active M EDENT ([facility] 120 ACTUAT Fluticasone [...] BY MOUTH TWICE A DAY SOLD: 04/24/2020 [facility] 40 mg 01/15/2020 12:00:00 AM EST capsule,delayed release (DR/EC) 90 TAKE ONE CAPSULE BY MOUTH EVERY DAY TAKE ONE CAPSULE BY MOUTH EVERY DAY SOLD: 04/24/2020 [facility] 40 mg 01/15/2020 12:00:00 AM EST [...] BY MOUTH AT BEDTIME SOLD: 02/25/2020 [facility] 90 mcg/actuation 11/27/2019 12:00:00 AM EDT [...] WITH THE 50 MG TABLET SOLD: 01/25/2020 [facility] 40 mg 07/17/2019 12:00:00 AM EDT capsule,delayed release (DR/EC) 90 TAKE ONE CAPSULE BY MOUTH EVERY DAY TAKE ONE CAPSULE BY MOUTH EVERY DAY SOLD: 10/19/2019 [facility] Insurance Providers Payer name Policy type / Coverage type Policy ID Covered constitution party ID Covered constitution party's relationship to redmond Policy [place] Plan Information [facility] [id number] [facility] [id number] [employer]URANCE [id number] SP [id number] [facility] [id number] SP [id number] [place] 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 (pr) Medigap Part B [id number] Self [id number] BC/BS [facility] Medigap Part B [id number] Self [facility] MEDICARE [id number] [facility] MEDICARE [id number] MEDICARE BLUE PPO 306 [id number] SP [id number] Medicare Advantage BCBS Medigap Part B [id number] Self [id number] Self [id number] EXCELLUS MEDICARE BLUE PPO G [id number] Self [id number] EXCELLUS BCBS MEDICARE [id number] Bea [id number] EXCELLUS BCBS MEDICARE [id number] Bea [id number] MEDICARE BLUE PPO 306 [id number] SP [id number] Blue Shield MCR Advantage Commercial [id number] Self [id number] Medicare Blue Ppo Commercial [id number] Self [id number] Medicare Blue Ppo Commercial [id number] Self [id number] Medicare Blue Ppo Commercial [id number] Self [id number] [employer] Commercial [id number] Self [id number] [facility] [id number] SP [id number] [email or web address]. [id number] Bea f [id number] MEDICARE BLUE PPO 306 [id number] SP [id number] MEDICARE BLUE PPO 306 [id number] SP [id number] [employer] Commercial [id number] Self BC/BS Of [place] Commercial [id number] Self [facility] [id number] [facility]I [facility] O [id number] S [id number] I [facility] -[facility]/P [id number] 18 [id number] BLUE CROSS BLUE SHIELD -O/P [id number] Commercial [id number] Self BC/BS Of [place] Commercial [id number] Self GROUP HEALTH INSURANCE O [id number] S [id number] DEPARTMENT OF LABOR O [id number] S [id number] Ghi/[employer] Medigap Part B [id number] Self [id number] [facility] Health Plans(To) Commercial [id number] Self [id number] [employer] BC/BS Commercial [id number] Self [facility] [id number] [facility] O [id number] S [id number] MEDICARE BLUE PPO 306 [id number] SP [id number] MEDICARE BLUE PPO P [id number] S [id number] WELLCARE [id number] SP [id number] DEPT OF LABOR [id number] SP [id number] WELLCARE O [id number] S [id number] BS Medicare Blue Ppo/Hmo Commercial [id number] Self [id number] BS Medicare Blue Ppo/Hmo Commercial [id number] Self [id number] BS Medicare Blue Ppo/Hmo Commercial [id number] Self [id number] BS Medicare Blue Ppo/Hmo Commercial [id number] Self [id number] Ghi [employer] Medigap Part B [id number] Self [id number] BS Medicare Blue Ppo/Hmo Commercial [id number] Self [id number] BCBS/Excell[employer] Commercial [id number] Self [id number] Acc/Dol ([place] Labor) (WC) Workers Compensation [id number] Self [id number] ANSI-Medicare Part B [id number] [facility] B [id number] S [id number] [facility] [id number] [facility] Part B [id number] Self [id number] Problems, Conditions, and Diagnoses No Information Surgeries/Procedures [...] Spirometry 06/03/2020 12:00:00 AM EDT M EDENT ([facility], ) OFFICE OUTPATIENT VISIT 25 MINUTES 05/10/2020 12:00:00 AM EDT MED[facility] ([facility] Electrocardiogram Complete 04/08/2020 12:00:00 AM EST MED[facility] ([facility] Results ID Date Data Source [id number] 11/18/2020 03:58:00 PM EDT MEDENT ([facility] Name Value Range Interpretation Code Description Data Jackie rce(s) Supporting Document(s) Urine Culture, Routine Laboratory test result Ab normal (applies to non-numeric results) MEDENT ([facility] ) SRC:URINE Bacteria identified in Urine by Culture Laboratory test result Abnormal (applies to non-numeric results) MEDENT ([facility] SRC:URINE Antimicrobial Susceptibility Laboratory test result MEDENT ([facility] SRC:URINE ID Date Data Source [id number] 11/18/2020 03:55:00 PM EDT MEDENT ([facility] Name Value Range Interpretation Code Description Data Jackie rce(s) Supporting Document(s) Color Urine Laboratory test result M EDENT ([facility] Appearance of Urine Laboratory test result MEDENT ([facility] Specific [place] 1.020 1.00-1.03 MEDENT ([facility] PH Urine 5.0 5.0-8.0 MEDENT ([facility] Glucose Urine Laboratory test result MEDENT ([facility] Bilirubin.total [Presence] in Urine by Test strip Laboratory test res ult MEDENT ([facility] Ketones Laboratory test result MEDENT ([facility] Protein Urine Laboratory test result MEDENT ([facility] Blood Urine Laboratory test result M EDENT ([facility] Nitrite Laboratory test result MEDENT ([facility] Urobilinogen 0.2 EU/dl 0.2-1.0 [facility] Leukocytes Laboratory test result Above high normal MEDENT ([facility] ID Date Data Source [id number] 07/10/2020 09:15:00 AM EDT MEDENT ([facility] Name Value Range Interpretation Code Description Data Jackie rce(s) Supporting Document(s) Chol 178 mg/dL 0-200 MEDENT ([facility] CHRONIC KIDNEY DISEASE STAGING [...] EXCLUSIVE. LDL_C 101 Calc 75-129 [facility] CHRONIC KIDNEY DISEASE STAGING [...] YEARS EXCLUSIVE. Cho/HDL Ratio 3.4 CALC KALLIE ([facility]le [facility]uel [facility] CHRONIC KIDNEY DISEASE STAGING PER [...] 2-19 YEARS EXCLUSIVE. ID Date Data Source [id number] 07/10/2020 09:15:00 AM EDT KALLIE ([facility] Name Value Range Interpretation Code Description Data Jackie rce(s) Supporting Document(s) BUN 11 mg/dL 8-23 KALLIE ([facility] diaz [facility] CHRONIC KIDNEY DISEASE STAGING PER [...] 120 mg/dL 70-110 Above high normal MEDENT ([facility] CHRONIC KIDNEY DISEASE [...] YEARS EXCLUSIVE. BUN/Creatinine Ratio 11.9 CALC MEDENT ([facility] CHRONIC KIDNEY DISEASE STAGING [...] 2-19 YEARS EXCLUSIVE. CL 105.7 mmol/L 98.0-107.0 [facility] CHRONIC KIDNEY DISEASE STAGING PER [...] YEARS EXCLUSIVE. Co2 23.6 mmol/L 22.0-29.0 MEDENT ([facility] CHRONIC KIDNEY DISEASE STAGING [...] YEARS EXCLUSIVE. Alt (SGPT) 17 U/L 0-41 MEDENT ([facility] CHRONIC [...] YEARS EXCLUSIVE. Anion Gap 17 mmol/L [facility] CHRONIC KIDNEY DISEASE STAGING [...] INDIVIDUALA AGED 2-19 YEARS EXCLUSIVE. eGFR Non-Afr. Swiss 67 # MEDENT ([facility] CHRONIC KIDNEY DISEASE [...] 2-19 YEARS EXCLUSIVE. ID Date Data Source [id number] 03/08/2020 01:15:00 PM EST KALLIE ([facility] Name Value Range Interpretation Code Description Data Jackie rce(s) Supporting Document(s) Chol 176 mg/dL 0-200 KALLIE ([facility] CHRONIC KIDNEY [...] YEARS EXCLUSIVE. LDL_C 98 Calc 75-129 MEDENT ([facility] CHRONIC KIDNEY DISEASE STAGING [...] YEARS EXCLUSIVE. Cho/HDL Ratio 3.3 CALC [facility]ENT ([facility] CHRONIC KIDNEY DISEASE STAGING PER [...] 2-19 YEARS EXCLUSIVE. ID Date Data Source [id number] 03/08/2020 01:15:00 PM EST KALLIE ([facility] Name Value Range Interpretation Code Description Data Jackie rce(s) Supporting Document(s) Glu 103 mg/dL 70-110 KALLIE ([facility] CHRONIC KIDNEY DISEASE STAGING PER [...] YEARS EXCLUSIVE. BUN 12 mg/dL 8-23 MEDENT ([facility] CHRONIC KIDNEY DISEASE STAGING [...] YEARS EXCLUSIVE. BUN/Creatinine Ratio 12.5 CALC MEDENT ([facility] CHRONIC KIDNEY DISEASE STAGING [...] YEARS EXCLUSIVE. K 4.0 mmol/L 3.5-5.1 MEDENT ([facility], [...] YEARS EXCLUSIVE. CL 102.3 mmol/L 98.0-107.0 MEDENT ([facility] CHRONIC KIDNEY DISEASE STAGING [...] YEARS EXCLUSIVE. Co2 23.3 mmol/L 22.0-29.0 MEDENT ([facility] CHRONIC KIDNEY DISEASE STAGING [...] 2-19 YEARS EXCLUSIVE. CA 9.6 mg/dL 8.6-10.2 MED[facility] ([facility], [...] EXCLUSIVE. Alt (SGPT) 19 U/L 0-41 MEDENT ([facility] CHRONIC KIDNEY DISEASE STAGING PER [...] INDIVIDUALA AGED 2-19 YEARS EXCLUSIVE. eGFR Non-Afr. Swiss 67 # MEDLESLI ([facility] CKD-EPI Procedure Social History No Information Vital Signs ID Date Data Source UNK Name Value Range Interpretation Code Description Data Source(s) Systolic blood pressure 128 mm[Hg] 128 mm[Hg] M EDENT ([facility] [place] body weight 150 [lb_av] 150 [lb_av] MEDEN T ([facility] Diastolic blood pressure 82 mm[Hg] 82 mm[Hg] KALLIE ([facility] Body temperature 97.6 [degF] 97.6 [degF] MEDLESLI ([facility] Heart rate 118 /min 118 /min MEDLESLI ([facility] Respiratory rate 18 /min 18 /min MEDENT ( [facility] Body height 70 [in_i] 70 [in_i] MEDLESLI ([facility] 5'10" Body weight 289.00 [lb_av] 289.00 [lb_av] MEDEN T ([facility] Body mass index (BMI) [Ratio] 41.5 kg/m2 41.5 k g/m2 MEDLESLI ([facility] Oxygen saturation in Arterial blood by Pulse oximetry 98 % 98 % KALLIE ([facility] Systolic blood pressure 146 mm[Hg] 146 mm[Hg] M EDENT ([facility] Body height 70 [in_i] 70 [in_i] MEDENT ([facility] 5'10" Oxygen saturation in Arterial blood by Pulse oximetry 94 % 94 % MEDENT ([facility] Body temperature 97.8 [degF] 97.8 [degF] MEDENT ([facility] Heart rate 97 /min 97 /min MEDENT ([facility] Diastolic blood pressure 88 mm[Hg] 88 mm[Hg] MEDENT ([facility] Respiratory rate 16 /min 16 /min MEDENT ( [facility] Body weight 283.00 [lb_av] 283.00 [lb_av] MEDEN T ([facility] [place] body weight 150 [lb_av] 150 [lb_av] MEDEN T ([facility] Body mass index (BMI) [Ratio] 40.6 kg/m2 40.6 k g/m2 MEDENT ([facility] Body height 70 [in_i] 70 [in_i] MEDENT ([facility] 5'10" Systolic blood pressure 124 mm[Hg] 124 mm[Hg] M EDENT ([facility] Diastolic blood pressure 76 mm[Hg] 76 mm[Hg] MEDENT ([facility] [place] body weight 150 [lb_av] 150 [lb_av] MEDEN T ([facility] Body weight 275.00 [...] Heart rate 104 /min 104 /min MEDENT ([facility] Respiratory rate 18 /min 18 /min MEDENT ( [facility] Diastolic blood pressure 80 mm[Hg] 80 mm[Hg] MEDENT ([facility] Body temperature 97.3 [degF] 97.3 [degF] MEDENT ([facility] Body height 70 [in_i] 70 [in_i] MEDENT ([facility] 5'10" Respiratory rate 18 /min 18 /min MEDENT ( [facility] Heart rate 96 /min 96 /min MEDENT ([facility] [place] body weight 150 [lb_av] 150 [lb_av] MEDEN T ([facility] Body mass index (BMI) [Ratio] 40.0 kg/m2 40.0 k g/m2 MEDENT ([facility] Oxygen saturation in Arterial blood by Pulse oximetry 95 % 95 % MEDENT ([facility] Systolic blood pressure 124 mm[Hg] 124 mm[Hg] M EDENT ([facility] Body weight 279.00 [lb_av] 279.00 [lb_av] MEDEN T ([facility] Systolic blood pressure 130 mm[Hg] 130 mm[Hg] [facility] Diastolic blood pressure 80 mm[Hg] 80 mm[Hg] MEDENT ([facility], ) Heart rate 113 /min 113 /min MEDENT ([facility]) Oxygen saturation in Arterial blood by Pulse oximetry 96 % 96 % MEDENT ([facility], ) Room Air Body height 71.5 [in_i] 71.5 [in_i] MEDENT ([facility]) 5'11.50" Body weight 280.00 [lb_av] 280.00 [lb_av] MEDEN T ([facility]) Body mass index (BMI) [Ratio] 38.5 kg/m2 38.5 k g/m2 MEDENT ([facility]) [place] body weight 155 [lb_av] 155 [lb_av] MEDEN T ([facility]) Body weight 127.008 kg 127.008 kg MEDENT ([facility]) Body surface area Derived from formula 2.45 m2 2.45 m2 MEDENT ([facility]) Body height 70 [in_i] 70 [in_i] MEDENT ([facility] 5'10" Systolic blood pressure 124 mm[Hg] 124 mm[Hg] M EDENT ([facility] Heart rate 116 /min 116 /min MEDENT ([facility] Diastolic blood pressure 74 mm[Hg] 74 mm[Hg] MEDENT ([facility] Body temperature 98.0 [degF] 98.0 [degF] MEDENT ([facility] Respiratory rate 18 /min 18 /min MEDENT ( [facility] Body weight 278.00 [lb_av] 278.00 [lb_av] MEDEN T ([facility] [place] body weight 150 [lb_av] 150 [lb_av] MEDEN T ([facility] Body mass index (BMI) [Ratio] 39.9 kg/m2 39.9 k g/m2 MEDENT ([facility] Oxygen saturation in Arterial blood by Pulse oximetry 98 % 98 % MEDENT ([facility] Oxygen saturation in Arterial blood by Pulse oximetry 96 % 96 % MEDENT ([facility] Systolic blood pressure 156 mm[Hg] 156 mm[Hg] M EDENT ([facility] Diastolic blood pressure 76 mm[Hg] 76 mm[Hg] MEDENT ([facility] Body temperature 97.7 [degF] 97.7 [degF] MEDENT ([facility] Heart rate 98 /min 98 /min MEDENT ([facility] Respiratory rate 18 /min 18 /min MEDENT ( [facility] Body height 70 [in_i] 70 [in_i] MEDENT ([facility] 5'10" Body weight 282.00 [lb_av] 282.00 [lb_av] MEDEN T ([facility] [place] body weight 150 [lb_av] 150 [lb_av] MEDEN T ([facility] Body mass index (BMI) [Ratio] 40.5 kg/m2 40.5 k g/m2 MEDENT ([facility] Respiratory rate 16 /min 16 /min MEDENT ( [facility] Systolic blood pressure 150 mm[Hg] 150 mm[Hg] M EDENT ([facility] Diastolic blood pressure 90 mm[Hg] 90 mm[Hg] MEDENT ([facility] Heart rate 90 /min 90 /min MEDENT ([facility] Body weight 279.00 [lb_av] 279.00 [lb_av] MEDEN T ([facility], ) Oxygen saturation in Arterial blood by Pulse oximetry 97 % 97 % [facility] ([facility]) Room Air Body height 71.5 [in_i] 71.5 [in_i] [facility] ([facility]) 5'11.50" Systolic blood pressure 120 mm[Hg] 120 mm[Hg] M EDENT ([facility]) Diastolic blood pressure 82 mm[Hg] 82 mm[Hg] [facility] Heart rate 99 /min 99 /min [facility] ([facility]) Body mass index (BMI) [Ratio] 38.4 kg/m2 38.4 k g/m2 [facility] ([facility]) [place] body weight 155 [lb_av] 155 [lb_av] [facility] ([facility]) Body weight 126.554 kg 126.554 kg [facility] ([facility]) Body surface area Derived from formula 2.44 m2 2.44 m2 [facility] ([facility])
[2020-12-08 10:44] VITALS: BP 169/99
--- NOTE | 2020-12-09 05:44 | ECGEPIP ---
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
== END 2020-12-08 10:46 | disposition home or self-care (01) ==
LOC: M ED 08:43
DX: I10 Essential (primary) hypertension (principal); F41.9 Anxiety disorder, unspecified; E78.5 Hyperlipidemia, unspecified; F95.9 Tic disorder, unspecified; K21.9 Gastro-esophageal reflux disease without esophagitis; G47.33 Obstructive sleep apnea (adult) (pediatric); M19.90 Unspecified osteoarthritis, unspecified site; E66.9 Obesity, unspecified; Z79.899 Other long term (current) drug therapy; Z79.82 Long term (current) use of aspirin

== ENCOUNTER → 2021-01-15 | Outpatient (CLI) | payer MEDICARE ==
[~2021-01-15] MED LIST changes: +AMLO1TAB24; +ASPI81TA26 PO; +MIRT-62; +VENTAER INH; +ZOLO100T PO; +ZOLO50TA PO
== END ==
LOC: M LABSMTC 10:28
PROVIDERS: ATTEND Anesthesiology
DX: Z01.812 Encounter for preprocedural laboratory examination (principal); Z11.52 Encounter for screening for COVID-19

== ENCOUNTER 2021-01-20 08:57 | Day surgery (SDC) | payer MEDICARE ==
[~2021-01-20] VITALS: Ht 170.2 cm; Wt 126.1 kg
[~2021-01-20 08:57] MED LIST changes: +LIDOCAINE 2% 100MG/5ML SDV (FOR ANES.) As Ordered ONE; +NS 1,000 ML IV ONE; +propofoL 200 MG/20 ML VIAL As Ordered ONE
--- OUTSIDE RECORDS SUMMARY | 2021-01-20 09:01 | CCD | Continuity of Care Document ---
Author Author Teena CONNELLY M.D. Organization Unknown Address [address] [address] Phone [phone] Care Team Providers Care Nailer Operator Name Role Phone [facility] AUT [phone] Problems Active Problems Provider Date Gastroesophageal reflux disease James Beverly M.D. Onset: 05/22/2004 Allergic rhinitis James Beverly M.D. Onset: 07/03/2004 Depressive disorder Hortencia Barrett [facility]-BC Onset: 0 Migraine Hortencia BarrettP-BC Onset: 2 Hyperlipidemia Hortencia Barrett ENVIRONMENTAL SERVICES LEAD-BC Onset: 2 Obesity Zuleyka Yan [facility]-C Onset: 2012 Chronic low back pain Letitia Portillo D., JAM-C Onset: 02/2013 Chronic obstructive lung disease Letitia Portillo D., ENVIRONMENTAL SERVICES LEAD-C Onset: 10/30/2014 Sleep apnea Letitia Portillo D., ENVIRONMENTAL SERVICES LEAD-C Onset: 07/04 Social History Type Date Description [...] One Tablet By Mouth Every Day 90tabs Eirc Connelly M.D . 08/09/2018 Proair HFA 108(90Base) mcg/Act Aer osol 2 puffs every 4 hours as needed for sob 3units Eric Hale, [facility]- 10/30/[address] [...] directed daily OTC Unknown Vitamin D3 250mcg (30597 Ut) Capsu les 1 p.o. qd Unknown [...] RPA-C 01/25/2012 Injection (SC)/(Im) Injection Hortencia Barrett ENVIRONMENTAL SERVICES LEAD-BC 12/26/2010 Injection Subcutaneous Or Intramuscular Injection Hortencia Barrett [facility]- 03/11 Immunizations CPT Code Status Date Vaccine Lot # [id number] Given 10/16/2020 Influenza Virus Vaccine, Quadrivalent, Slit Virus, Im Use 3Y & Up [id number] 17204 Given 03/08/2020 Pneumococcal Immunization T0 51960 65369 Given 11/09/2016 Influenza Virus Vaccine, Quadrivalent, Slit Virus, Im Use 3Y & Up [id number] 02289 Given 04/01/2015 PPD Tuberculosis Intradermal 26832 Given 10/30/2014 Influenza Virus Vac. Split Virus Individuals 3 Years And Above [id number] 21350 Given 11/20/2013 Influenza Virus Vac. Split Virus Individuals 3 Years And Above [id number] 22337 Given 12/02/2012 Influenza Virus Vac. Split Virus Individuals 3 Years And Above [id number] 47257 Given 01/25/2012 Influenza Vaccin e (Fluzone) 3Yrs Of Age Or Older Medicare Plans 60541 Given 01/25/2012 Influenza Virus Vac. Split Virus Individuals 3 Years And Above [id number] 95172 Given 12/26/2010 Pneumococcal Immunization 11 112 Vital Signs Date Vital Result Comment 11/29/2020 3:32pm BP Systolic 128 mmHg BP Diastolic 82 mmHg Body Temperature 97.6 F Heart Rate 118 /min Respiratory Rate 18 /min Height 70 inches 5'10" Weight 289.00 lb [place] Body Weight 150 lb BMI (Body Mass Index) 41.5 kg/m2 O2 % BldC Oximetry 98 % 11/18/2020 11:30am BP Systolic 146 mmHg BP Diastolic 88 mmHg Body Temperature 97.8 F Heart Rate 97 /min Respiratory Rate 16 /min Height 70 inches 5'10" Weight 283.00 lb [place] Body Weight 150 lb BMI (Body Mass Index) 40.6 kg/m2 O2 % BldC Oximetry 94 % Results Test Acquired Date Facility Test Result H/L Range Note Laboratory test finding 12/08/2020 [facility] (Interface) [phone] iSTAT Troponin 0.00 NG/ML Normal 0.00-0.08 Urine Culture, Routine 11/18/2020 [facility] [place] Urine Culture, Routine Final report Abnormal 1, 2 Result 1 Escherichia coli Abnormal 3 Antimicrobial Susceptibility See Comment: 4 U/A DIP FPA 11/18/2020 [facility] Asso ciates Color Urine YELLOW Yellow Appearance CLEAR Clear Specific [place] 1.020 1.00-1.03 PH Urine 5.0 5.0-8.0 Glucose [...] eGFR 77 # Calc 6 eGFR Non-Afr. [place] 67 # Calc 7 Lipid Panel 07/10/2020 [...] CKD-EPI Procedures Date Code Description Status 11/29/2020 45153 Office/Outpatient Established Mo d MDM 30-39 Min Completed 11/18/2020 18023 Office/Outpatient Established Mo d MDM 30-39 Min Completed 10/16/2020 26152 Office/Outpatient Established Mo d MDM 30-39 Min Completed 07/10/2020 06678 Office/Outpatient Established Mo d MDM 30-39 Min Completed 02/09/2019 [id number] Mammogram Completed Medical Devices Description No Information Available Encounters Type Date Location Provider Dx Diagnosis Office Visit 11/29/2020 3:40p [facility] Eric Connelly M. D. R19.5 Other fecal abnormalities Office Visit 11/18/2020 11:30a [facility] Eric Connelly M. D. R32 Unspecified urinary incontinence Office Visit 10/16/2020 1:30p [facility] Eric Connelly M. D. R41.82 Altered mental status, unspecified Office Visit 07/10/2020 9:00a [facility] Eric Connelly M. D. F33.0 Major [...] 8:45 am - Eric Connelly M.D. at [facility] Functional Status Description No Information Available Mental Status Description No Information Available Referrals Refer to Reason for Referral Status Appt Date Efra Orta M.D. positive FIT test- eval and rx Sent 12/09/[address] [place] [address], [address] [place] [address] [phone]
--- OUTSIDE RECORDS SUMMARY | 2021-01-20 09:01 | CCD | Continuity of Care Document ---
Author Author Teena CONNELLY M.D. Organization Unknown Address [address] [address] Phone [phone] Care Team Providers Care Subsurface Augmentee Operator Name Role Phone [facility] AUT Problems Active Problems Provider Date Gastroesophageal reflux disease James Beverly M.D. Onset: 05/22/2004 Allergic rhinitis James Beverly M.D. Onset: 07/03/2004 Depressive disorder Hortencia Barrett SINGLE NEEDLE OPERATOR-BC Onset: 0 Migraine Hortencia Barrett-BC Onset: 2 Hyperlipidemia Hortencia Barrett SINGLE NEEDLE OPERATOR-BC Onset: 2 Obesity Zuleyka Yan [facility]-C Onset: 2012 Chronic low back pain Letitia Portillo D., JAM-C Onset: 02/2013 Chronic obstructive lung disease Letitia Portillo D., JAM-C Onset: 10/30/2014 Sleep apnea Letitia Portillo D., SINGLE NEEDLE OPERATOR-C Onset: 07/04 Social History Type Date Description Comments Sex Unknown Tobacco Use Start: Unknown End: Unknown Patient is a former smoker Allergies and adverse reactions Active Allergies Criticality Reaction | Severity Comments Date Statins Unable to assess criticality 10/30/2014 Inactive Allergies NKDA Unable to assess criticality 05/22/2004 Medications Active Medications SIG Qnty Indications Ordering Provide r Date Womens One Daily Tablets 1 p .o. qd OTC Eric Connelly M.D. 10/16/2020 Psyllium Husk Powder psyllium husk 700mg cap bid OTC Eric Connelly M.D. 10/17/19 21 Mirtazapine 15mg Tablets take 1 tablet by mouth once nightly at bedtime 90Tablet Eric Connelly M.D. 10/16/2020 Sertraline HCL 50mg Tablets Take One Tablet By Mouth Every Day 90tabs Eric Connelly M.D . 08/09/2018 Proair HFA 108(90Base) mcg/Act Aer osol 2 puffs every 4 hours as needed for sob 3units Eric Hale SINGLE NEEDLE OPERATOR- 10/30/[address] Take One Capsule By Mouth Every Day 90caps Eric Connelly M. D. 06/21/2012 Sertraline HCL 100mg Tablets Take One Tablet By Mouth Every Day With The 50 MG Tablet 90taitz F32.9 Eric Connelly M.D. 03/13/2008 Red Yeast Rice 600mg Tablets 2 po qd OTC Unknown Garlique 400mg Tablets DR daily as directed Unknown Fiber-Caps 625mg Tablets 1 tab by mouth once a day OTC Unknown Cholesterol Defense Tablets daily as directed Unknown Vitamin D3 250mcg (74894 Ut) Capsu les 1 p.o. qd Unknown Vitamin C Adult Gummies 125mg Chew tabs as directed daily OTC Unknown Asa 81 Capsules Take 2 aspirin once daily 2caps Unknown Advair Diskus 250-50mcg/Dose Aeros ol 1 puff bid 1units Unknown History Medications Nitrofurantoin Macrocrystal 100mg Capsules 1 by mouth twice a day x 7 days 14caps Eric Connelly M.D. 11/22/2020 - 01/13/2021 Cipro 500mg Tablets 1 by mouth twice a day 6tabs Eric Connelly M.D. 11/19/19 21 - 11/22/2020 Medications Administered in Office Medication SIG Qnty Indications Ordering Provider Date Injection (SC)/(Im) Injection Deepak Tay D.O., FAAFP 12/02/2012 Injection (SC)/(Im) Injection Zuleyka Yan RPA-Dhara 01/25/2012 Injection (SC)/(Im) Injection Hortencia Barrett- 12/26/2010 Injection Subcutaneous Or Intramuscular Injection Hortencia Barrett [facility]- 03/11 Immunizations CPT Code Status Date Vaccine Lot # 34736 Given 10/16/2020 Influenza Virus Vaccine, Quadrivalent, Slit Virus, Im Use 3Y & Up [id number] 33431 Given 03/08/2020 Pneumococcal Immunization T0 31376 93038 Given 11/09/2016 Influenza Virus Vaccine, Quadrivalent, Slit Virus, Im Use 3Y & Up [id number] 65532 Given 04/01/2015 PPD Tuberculosis Intradermal 99563 Given 10/30/2014 Influenza Virus Vac. Split Virus Individuals 3 Years And Above [id number] 94989 Given 11/20/2013 Influenza Virus Vac. Split Virus Individuals 3 Years And Above [id number] 56669 Given 12/02/2012 Influenza Virus Vac. Split Virus Individuals 3 Years And Above [id number] 28984 Given 01/25/2012 Influenza Vaccin e (Fluzone) 3Yrs Of Age Or Older Medicare Plans 87217 Given 01/25/2012 Influenza Virus Vac. Split Virus Individuals 3 Years And Above [id number] 87264 Given 12/26/2010 Pneumococcal Immunization 11 112 Vital Signs Date Vital Result Comment 01/13/2021 9:12am BP Systolic 118 mmHg BP Diastolic 76 mmHg Body Temperature 98.3 F Heart Rate 96 /min Respiratory Rate 18 /min Height 70 inches 5'10" [place] Body Weight 150 lb O2 % BldC Oximetry 96 % 11/29/2020 3:32pm BP Systolic 128 mmHg BP Diastolic 82 mmHg Body Temperature 97.6 F Heart Rate 118 /min Respiratory Rate 18 /min Height 70 inches 5'10" Weight 289.00 lb [place] Body Weight 150 lb BMI (Body Mass Index) 41.5 kg/m2 O2 % BldC Oximetry 98 % Results Test Acquired Date Facility Test Result H/L Range Note Laboratory test finding 01/13/2021 [facility] Hemoglobin A1c 6.1 % 4.50-6.20 Laboratory test finding 12/08/2020 [facility] (Interface) [phone] iSTAT Troponin 0.00 NG/ML Normal 0.00-0.08 Urine Culture, Routine 11/18/2020 [facility] [place] Urine Culture, Routine Final report Abnormal 1, 2 Result 1 Escherichia coli Abnormal 3 Antimicrobial Susceptibility See Comment: 4 U/A DIP FPA 11/18/2020 [facility] Asso ciates Color Urine YELLOW Yellow Appearance CLEAR Clear Specific [place] 1.020 1.00-1.03 PH Urine 5.0 5.0-8.0 Glucose Urine NEG Negative Bilirubin Urine NEG Negative Ketones NEG Negative Blood Urine NEG Negative Protein Urine NEG Negative Urobilinogen .2 EU/dl 0.2-1.0 Nitrite NEG Negative Leukocytes 1+ High Negative 1 SRC:URINE 2 Source of Specimen: URINE [...] S Tetracycline S Tobramycin S Trimethoprim/Sulfa S Procedures Date Code Description Status 01/13/2021 31969 Office/Outpatient Established Mo d MDM 30-39 Min Completed 11/29/2020 77142 Office/Outpatient Established Mo d MDM 30-39 Min Completed 11/18/2020 12164 Office/Outpatient Established Mo d MDM 30-39 Min Completed 10/16/2020 59986 Office/Outpatient Established Mo d MDM 30-39 Min Completed 02/09/2019 [id number] Mammogram Completed Medical Devices Description No Information Available Encounters Type Date Location Provider Dx Diagnosis Office Visit 01/13/2021 8:45a [facility] Eric Connelly M. D. F33.0 Major depressive disorder, recurrent, mild I10 Essential (primary) hyperten geraldine J44.9 Chronic obstructive pulmonar y disease, unspecified E78.5 Hyperlipidemia, unspecified R73.01 Impaired fasting glucose Office Visit 11/29/2020 3:40p [facility] Eric Connelly M. D. R19.5 Other fecal abnormalities Office Visit 11/18/2020 11:30a [facility] Eric Connelly M. D. R32 Unspecified urinary incontinence Office Visit 10/16/2020 1:30p [facility] Eric Connelly M. D. R41.82 Altered mental status, unspecified Assessments Date Code Description Provider 01/13/2021 F33.0 Major depressive disorder, recur rent, mild Eric Connelly M.D. 01/13/2021 I10 Essential (primary) hypertension Eric Connelly M.D. 01/13/2021 J44.9 Chronic obstructive pulmonary di sease, unspecified Eric Connelly M.D. 01/13/2021 E78.5 Hyperlipidemia, unspecified Mitc helEric christianson M.D. 01/13/2021 R73.01 Impaired fasting glucose Eric Huitron M.D. 11/29/2020 R19.5 Other fecal abnormalities Eric Thorne M.D. 11/18/2020 R32 Unspecified urinary incontinence Eric Connelly M.D. 10/16/2020 R41.82 Altered mental status, unspecifi ed Eric Connelly M.D. Plan of Treatment Future Appointment(s):* 05/05/2021 9:15 am - [facility] M.D[facility] at [facility] Functional Status Description No Information Available Mental Status Description No Information Available Referrals Refer to Reason for Referral Status Appt Date [facility] Urology Center recurrent UTIs- eval and rx Created [address] [facility], [place] [address] [phone] Efra Orta M.D. positive FIT test- eval and rx Sent 12/09/2020 [address], [address] [place] [address] [phone]
--- OUTSIDE RECORDS SUMMARY | 2021-01-20 09:01 | CCD | Continuity of Care Document ---
Author Author Teena CONNELLY M.D. Organization Unknown Address [address] [address] Phone [phone] Care Team Providers Care Human Service Coordinator Name Role Phone [facility] AUT Problems Active Problems Provider Date Gastroesophageal reflux disease James Beverly M.D. Onset: 05/22/2004 Allergic rhinitis James Beverly M.D. Onset: 07/03/2004 Depressive disorder Hortencia Barrett PERSONNEL RESEARCH PSYCHOLOGIST-BC Onset: 0 Migraine Hortencia Barrett-BC Onset: 2 Hyperlipidemia Hortencia Barrett PERSONNEL RESEARCH PSYCHOLOGIST-BC Onset: 2 Obesity Zuleyka Yan [facility]-C Onset: 2012 Chronic low back pain Letiita Portillo D., JAM-C Onset: 02/2013 Chronic obstructive lung disease Letitia Portillo D., JAM-C Onset: 10/30/2014 Sleep apnea Letitia Portillo D., PERSONNEL RESEARCH PSYCHOLOGIST-C Onset: 07/04 Social History Type Date Description [...] as needed for sob 3units Eric Hale PERSONNEL RESEARCH PSYCHOLOGIST- 10/30/[address] Take One [...] daily as directed Unknown Vitamin D3 250mcg (25117 Ut) Capsu les 1 p.o. qd Unknown [...] Yan RPA-Dhara 01/25/2012 Injection (SC)/(Im) Injection Hortencia Barrett-BC 12/26/2010 Injection Subcutaneous Or Intramuscular Injection Hortencia Barrett [facility]- 03/11 Immunizations CPT Code Status Date Vaccine Lot # 11946 Given 10/16/2020 Influenza Virus Vaccine, Quadrivalent, Slit Virus, Im Use 3Y & Up [id number] 72940 Given 03/08/2020 Pneumococcal Immunization T0 02899 62603 Given 11/09/2016 Influenza Virus Vaccine, Quadrivalent, Slit Virus, Im Use 3Y & Up [id number] 02038 Given 04/01/2015 PPD Tuberculosis Intradermal 05422 Given 10/30/2014 Influenza Virus Vac. Split Virus Individuals 3 Years And Above [id number] 44888 Given 11/20/2013 Influenza Virus Vac. Split Virus Individuals 3 Years And Above [id number] 20487 Given 12/02/2012 Influenza Virus Vac. Split Virus Individuals 3 Years And Above [id number] 87765 Given 01/25/2012 Influenza Vaccin e (Fluzone) 3Yrs Of Age Or Older Medicare Plans 02794 Given 01/25/2012 Influenza Virus Vac. Split Virus Individuals 3 Years And Above [id number] 29725 Given 12/26/2010 Pneumococcal Immunization 11 112 Vital Signs Date Vital Result Comment 01/13/2021 9:12am BP Systolic 118 mmHg BP Diastolic 76 mmHg Body Temperature 98.3 F Heart Rate 96 /min Respiratory Rate 18 /min Height 70 inches 5'10" [place] Body Weight 150 lb O2 % BldC Oximetry 96 % 11/29/2020 3:32pm BP Systolic 128 mmHg BP Diastolic 82 mmHg Body Temperature 97.6 F Heart Rate 118 /min Respiratory Rate 18 /min Height 70 inches 5'10" Weight 289.00 lb [place] Body Weight 150 lb BMI (Body Mass Index) 41.5 kg/m2 O2 % BldC Oximetry 98 % Results Test Acquired Date Facility Test Result H/L Range Note Coronavirus 2019 Nasopharygeal 01/15/2021 [facility] (Interface) [phone] Coronavirus 2019 Nasopharygeal ASSAY INFORMATIO <SEE N OTE> 1 CMP 01/13/2021 [facility] Glu 134 mg/dL High 70 - 110 2 BUN 12 mg/dL 8 - 23 Creat 1.0 mg/dL 0.5 - 1.0 BUN/Creatinine Ratio 11.7 CALC Na 141 mmol/L 136 - 145 K 4.2 mmol/L 3.5 - 5.1 CL 104.0 mmol/L 98.0 - 107.0 Co2 20.6 mmol/L Low 22.0 - 29.0 CA 9.5 mg/dL 8.6 - 10.2 TP 6.2 g/dL Low 6.6 - 8.7 Alb 4.4 g/dL 3.4 - 4.8 A/G Ratio 2.4 CALC Globulin 1.8 CALC Alp 89.4 U/L 35 - 129 Alt (SGPT) 16 U/L 0 - 41 Ast (Sgot) 17 U/L 0 - 40 Tbili 0.36 mg/dL 0.0 - 1.2 Osmolality-Calculated 282.6 CALC Anion Gap 20 mmol/L eGFR 68 # Calc 3 eGFR Non-Afr. English 59 # Calc 4 Lipid Panel 01/13/2021 [facility] Chol 190 mg/dL 0 - 200 Trig 131 mg/dL 40 - 200 HDL 54 mg/dL 45 - 65 LDL_C 110 Calc 75 - 129 Cho/HDL Ratio 3.5 CALC Laboratory test finding 01/13/2021 [facility] Hemoglobin A1c 6.1 % 4.50-6.20 Laboratory test finding 12/08/2020 [facility] ([facility] [phone] iSTAT Troponin 0.00 NG/ML Normal 0.00-0.08 Urine Culture, Routine 11/18/2020 [facility] [place] Urine Culture, Routine Final report Abnormal 5, 6 Result 1 Escherichia coli Abnormal 7 Antimicrobial Susceptibility See Comment: 8 U/A DIP FPA 11/18/2020 [facility] Asso ciates Color Urine YELLOW Yellow Appearance CLEAR Clear Specific [place] 1.020 1.00-1.03 PH Urine 5.0 5.0-8.0 Glucose Urine NEG Negative Bilirubin Urine NEG Negative Ketones NEG Negative Blood Urine NEG Negative Protein Urine NEG Negative Urobilinogen .2 EU/dl 0.2-1.0 Nitrite NEG Negative Leukocytes 1+ High Negative 1 ASSAY INFORMATION: Real Time RT-PCR NOTE: The COVID-19 assay has been cleared by the U.S. Food and Drug Administration under the Emergency Use Authorization (EUA). [facility] [employer] and [facility] are designated as high complexity laboratories by the Clinical Laboratory Improvement Amendments of 1988(CLIA) and are qualified to perform this test. Not Detected 2 CHRONIC KIDNEY DISEASE STAGI NG PER NKF: [...] ADOLESCENTS REPRESENTS INDIVIDUALA AGED 2-19 YEARS EXCLUSIVE. 3 CKD-EPI 4 CKD-EPI 5 SRC:URINE 6 Source of Specimen: URINE 7 Escherichia coli Source of Specimen: URINE Cefazolin <=4 ug/mL Cefazolin with an DIANA <=16 predicts susceptibility to the oral agents cefaclor, cefdinir, cefpodoxime, cefprozil, cefuroxime, cephalexin, and loracarbef when used for therapy of uncomplicated urinary tract infections due to E. coli, Klebsiella pneumoniae, and Proteus mirabilis. 25,000-50,000 colony forming units per m L 8 Source of Specimen: URINE S = Susceptible; [...] S Procedures Date Code Description Status 01/13/2021 34848 Office/Outpatient Established Mo d MDM 30-39 Min Completed 11/29/2020 45556 Office/Outpatient Established Mo d MDM 30-39 Min Completed 11/18/2020 06597 Office/Outpatient Established Mo d MDM 30-39 Min Completed 10/16/2020 28585 Office/Outpatient Established Mo d MDM 30-39 Min Completed 02/09/2019 [id number] Mammogram Completed Medical Devices Description No Information Available Encounters Type Date Location Provider Dx Diagnosis Office Visit 01/13/2021 8:45a [facility] Eric Connelly M. D. F33.0 Major depressive disorder, recurrent, mild I10 Essential (primary) hyperten geraldine J44.9 Chronic obstructive pulmonar y disease, unspecified E78.5 Hyperlipidemia, unspecified R73.01 Impaired fasting glucose Office Visit 11/29/2020 3:40p [facility] Eric Connelly M. D. R19.5 Other fecal abnormalities Office Visit 11/18/2020 11:30a [facility] Eric Connelly M. D. R32 Unspecified urinary incontinence Office Visit 10/16/2020 1:30p [facility] Eric Connelly M. D. R41.82 Altered mental status, unspecified Assessments Date Code Description Provider 01/13/2021 F33.0 Major depressive disorder, recur rent, mild Eric Connelly M.D. 01/13/2021 I10 Essential (primary) hypertension Eric Connelly M.D. 01/13/2021 J44.9 Chronic obstructive pulmonary di sease, unspecified Eric Connelly M.D. 01/13/2021 E78.5 Hyperlipidemia, unspecified [facility]c Eric kaye M.D. 01/13/2021 R73.01 Impaired fasting glucose Eric Huitron M.D. 11/29/2020 R19.5 Other fecal abnormalities Eric Thorne M.D. 11/18/2020 R32 Unspecified urinary incontinence Eric Connelly M.D. 10/16/2020 R41.82 Altered mental status, unspecifi ed Eric Connelly M.D. Plan of Treatment Future Appointment(s):* 05/05/2021 9:15 am - Eric Connelly M.D. at [facility] Functional Status Description No Information Available Mental Status Description No Information Available Referrals Refer to Reason for Referral Status Appt Date [facility] Urology Center recurrent UTIs- [place] [address] [facility], [place] [address] [phone] Efra Orta M.D. positive FIT test- eval and rx Sent 12/09/2020 [address] [facility], [address] [place] [address] [phone]
--- OUTSIDE RECORDS SUMMARY | 2021-01-20 09:01 | CCD | Continuity of Care Document ---
Author Author Teena CONNELLY M.D. Organization Unknown Address [address] [address] Phone [phone] Care Team Providers Care Artist Model Name Role Phone [facility] AUT Problems Active Problems Provider Date Gastroesophageal reflux disease James Beverly M.D. Onset: 05/22/2004 Allergic rhinitis James Beverly M.D. Onset: 07/03/2004 Depressive disorder Hortencia Barrett SHIRT FOLDING MACHINE OPERATOR-BC Onset: 0 Migraine Hortencia Barrett-BC Onset: 2 Hyperlipidemia Hortencia Barrett SHIRT FOLDING MACHINE OPERATOR-BC Onset: 2 Obesity Zuleyka Yan [facility] Onset: 2012 Chronic low back pain Letitia Portillo D., JAM-C Onset: 02/2013 Chronic obstructive lung disease Letitia Portillo D., JAM-C Onset: 10/30/2014 Sleep apnea Letitia Portillo D., SHIRT FOLDING MACHINE OPERATOR-C Onset: 07/04 Social History Type Date [...] M.D. 10/16/2020 Amlodipine Besylate 5mg Tablets 1 By Mouth Once Daily 90tabs Eric Connelly M.D. 04/09/19 21 Sertraline HCL 50mg Tablets Take One Tablet By Mouth Every Day 90taEric Gonzalez M.D . 08/09/2018 Proair HFA 108(90Base) mcg/Act Aer osol 2 puffs every 4 hours as needed for sob 3units Eric Hale, SHIRT FOLDING MACHINE OPERATOR-BC 10/30/[address] Take One Capsule By Mouth Every Day 90caps Eric Connelly M. D. 06/21/2012 Sertraline HCL 100mg Tablets Take One Tablet By Mouth Every Day With The 50 MG Tablet 90tabs F32.9 Eric Connelly M.D. 03/13/2008 Advair Diskus 250-50mcg/Dose Aeros ol 1 puff bid 1units Unknown Fiber-Caps 625mg Tablets 1 tab by mouth once a day OTC Unknown Cholesterol Defense Tablets daily as directed Unknown Vitamin D3 250mcg (30379 Ut) Capsu les 1 p.o. qd Unknown Vitamin C Adult Gummies 125mg Chew tabs as directed daily OTC Unknown Asa 81 Capsules Take 2 aspirin once daily 2caps Unknown Red Yeast Rice 600mg Tablets 2 po qd OTC Unknown History Medications Nitrofurantoin Macrocrystal 100mg Capsules [...] RPA-C 01/25/2012 Injection (SC)/(Im) Injection Hortencia Barrett [facility] 12/26/2010 Injection Subcutaneous Or Intramuscular Injection Hortencia Barrett [facility] 03/11 Immunizations CPT Code Status Date Vaccine Lot # 58223 Given 10/16/2020 Influenza Virus Vaccine, Quadrivalent, Slit Virus, Im Use 3Y & Up [id number] 37410 Given 03/08/2020 Pneumococcal Immunization T0 09635 75760 Given 11/09/2016 Influenza Virus Vaccine, Quadrivalent, Slit Virus, Im Use 3Y & Up [id number] 65191 Given 04/01/2015 PPD Tuberculosis Intradermal 59099 Given 10/30/2014 Influenza Virus Vac. Split Virus Individuals 3 Years And Above [id number] 35406 Given 11/20/2013 Influenza Virus Vac. Split Virus Individuals 3 Years And Above [id number] 21479 Given 12/02/2012 Influenza Virus Vac. Split Virus Individuals 3 Years And Above [id number] 75290 Given 01/25/2012 Influenza Vaccin e (Fluzone) 3Yrs Of Age Or Older Medicare Plans 54691 Given 01/25/2012 Influenza Virus Vac. Split Virus Individuals 3 Years And Above [id number] 24897 Given 12/26/2010 Pneumococcal Immunization 11 112 Vital Signs Date Vital Result Comment 11/29/2020 3:32pm BP Systolic 128 mmHg BP Diastolic 82 mmHg Body Temperature 97.6 F Heart Rate 118 /min Respiratory Rate 18 /min Height 70 inches 5'10" Weight 289.00 lb [place] Body Weight 150 lb BMI (Body Mass Index) 41.5 kg/m2 O2 % BldC Oximetry 98 % 11/18/2020 11:30am BP Systolic 146 mmHg BP Diastolic 88 mmHg Body Temperature 97.8 F Heart Rate 97 /min Respiratory Rate 16 /min Height 70 inches 5'10" Weight 283.00 lb [place] Body Weight 150 lb BMI (Body Mass Index) 40.6 kg/m2 O2 % BldC Oximetry 94 % Results Test Acquired Date Facility Test Result H/L Range Note Laboratory test finding 12/08/2020 [facility] ([facility]) [phone] iSTAT Troponin 0.00 NG/ML Normal 0.00-0.08 Urine Culture, Routine 11/18/2020 [facility] [place] Urine Culture, Routine Final report Abnormal 1, 2 Result 1 Escherichia coli Abnormal 3 Antimicrobial Susceptibility See Comment: 4 U/A DIP FPA 11/18/2020 [facility] Asso ciates Color Urine YELLOW Yellow Appearance CLEAR Clear Specific [place] 1.020 1.00-1.03 PH Urine 5.0 5.0-8.0 Glucose [...] S Procedures Date Code Description Status 01/13/2021 83307 Office/Outpatient Established Mo d MDM 30-39 Min Completed 11/29/2020 99254 Office/Outpatient Established Mo d MDM 30-39 Min Completed 11/18/2020 29369 Office/Outpatient Established Mo d MDM 30-39 Min Completed 10/16/2020 82512 Office/Outpatient Established Mo d MDM 30-39 Min Completed 02/09/2019 [id number] Mammogram Completed Medical Devices Description No Information Available Encounters Type Date Location Provider Dx Diagnosis Office Visit 01/13/2021 8:45a [place] [facility] Eric Connelly M. D. F33.0 Major depressive disorder, recurrent, mild I10 Essential (primary) hyperten geraldine J44.9 Chronic obstructive pulmonar y disease, unspecified E78.5 Hyperlipidemia, unspecified R73.01 Impaired fasting glucose Office Visit 11/29/2020 3:40p [place] [facility] Eric Connelly M. D. R19.5 Other fecal abnormalities Office Visit 11/18/2020 11:30a [place] [facility] Eric Connelly M. D. R32 Unspecified urinary incontinence Office Visit 10/16/2020 1:30p [place] [facility] Eric Connelly M. D. R41.82 Altered [...] ed Eric Connelly M.D. Plan of Treatment No Information Available Functional Status Description No Information Available Mental Status Description No Information Available Referrals Refer to Dr Reason for Referral Status Appt Date [facility] Urology Center recurrent UTIs- eval and rx Created [id number] [facility], [facility] [place] [place] [address] [phone] Efra Orta M.D. positive FIT test- eval and rx Sent 12/09/2020 [address] [facility] [address] [place] [address] [phone]
--- OUTSIDE RECORDS SUMMARY | 2021-01-20 09:01 | CCD | Continuity of Care Document ---
Author Author Teena CONNELLY M.D. Organization Unknown Address [address] [address] Phone [phone] Care Team Providers Care Logistics Specialist Name Role Phone [facility] AUT [phone] Problems Active Problems Provider Date Gastroesophageal reflux disease James Beverly M.D. Onset: 05/22/2004 Allergic rhinitis James Beverly M.D. Onset: 07/03/2004 Depressive disorder Hortencia Barrett DISTRICT REPRESENTATIVE-BC Onset: 0 Migraine Hortencia Barrett-BC Onset: 2 Hyperlipidemia Hortencia Barrett DISTRICT REPRESENTATIVE-BC Onset: 2 Obesity Zuleyka Yan [facility] Onset: 2012 Chronic low back pain Letitia Portillo D., JAM-C Onset: 02/2013 Chronic obstructive lung disease Letitia Portillo D., JAM-C Onset: 10/30/2014 Sleep apnea Letitia Portillo D., DISTRICT REPRESENTATIVE-C Onset: 07/04 Social History Type Date Description [...] as needed for sob 3units Eric Hale DISTRICT REPRESENTATIVE- 10/30/[address] Take One [...] daily as directed Unknown Vitamin D3 250mcg (33871 Ut) Capsu les 1 p.o. qd Unknown [...] Injection Subcutaneous Or Intramuscular Injection Hortencia Barrett [facility] 03/11 Immunizations CPT Code Status Date Vaccine Lot # 28412 Given 10/16/2020 Influenza Virus Vaccine, Quadrivalent, Slit Virus, Im Use 3Y & Up [id number] 54091 Given 03/08/2020 Pneumococcal Immunization T0 82029 88333 Given 11/09/2016 Influenza Virus Vaccine, Quadrivalent, Slit Virus, Im Use 3Y & Up [id number] 01098 Given 04/01/2015 PPD Tuberculosis Intradermal 51693 Given 10/30/2014 Influenza Virus Vac. Split Virus Individuals 3 Years And Above [id number] 20756 Given 11/20/2013 Influenza Virus Vac. Split Virus Individuals 3 Years And Above [id number] 19459 Given 12/02/2012 Influenza Virus Vac. Split Virus Individuals 3 Years And Above [id number] 55922 Given 01/25/2012 Influenza Vaccin e (Fluzone) 3Yrs Of Age Or Older Medicare Plans 93315 Given 01/25/2012 Influenza Virus Vac. Split Virus Individuals 3 Years And Above [id number] 81586 Given 12/26/2010 Pneumococcal Immunization 11 112 Vital Signs Date Vital Result Comment 01/13/2021 9:12am BP Systolic 118 mmHg BP Diastolic 76 mmHg Body Temperature 98.3 F Heart Rate 96 /min Respiratory Rate 18 /min Height 70 inches 5'10" [place] Body Weight 150 lb O2 % BldC Oximetry 96 % 11/29/2020 3:32pm BP Systolic 128 mmHg BP Diastolic 82 mmHg Body Temperature 97.6 F Heart Rate 118 /min Respiratory Rate 18 /min Height 70 inches 5'10" Weight 289.00 lb [place] Body Weight 150 lb BMI (Body Mass Index) 41.5 kg/m2 O2 % BldC Oximetry 98 % Results Test Acquired Date Facility Test Result H/L Range Note CMP 01/13/2021 [facility] Glu 134 mg/dL High 70 - 110 1 BUN 12 mg/dL 8 - 23 Creat [...] Gap 20 mmol/L eGFR 68 # Calc 2 eGFR Non-Afr. [place] Islander 59 # Calc 3 Lipid Panel 01/13/2021 [facility] Chol 190 mg/dL 0 - 200 Trig 131 mg/dL 40 - 200 HDL 54 mg/dL 45 - 65 LDL_C 110 Calc 75 - 129 Cho/HDL Ratio 3.5 CALC Laboratory test finding 01/13/2021 [facility] Hemoglobin A1c 6.1 % 4.50-6.20 [facility] test [facility] [phone] iSTAT Troponin 0.00 NG/ML Normal 0.00-0.08 Urine Culture, Routine 11/18/2020 [facility] [place] Urine Culture, Routine Final report Abnormal 4, 5 Result 1 Escherichia coli Abnormal 6 Antimicrobial Susceptibility See Comment: 7 U/A DIP FPA 11/18/2020 [facility] Asso ciates Color Urine YELLOW Yellow Appearance CLEAR Clear Specific [place] 1.020 1.00-1.03 PH Urine 5.0 5.0-8.0 Glucose Urine NEG Negative Bilirubin Urine NEG Negative Ketones NEG Negative Blood Urine NEG Negative Protein Urine NEG Negative Urobilinogen .2 EU/dl 0.2-1.0 Nitrite NEG Negative Leukocytes 1+ High Negative 1 CHRONIC KIDNEY DISEASE STAGI NG PER [...] 2-19 YEARS EXCLUSIVE. 2 CKD-EPI 3 CKD-EPI 4 SRC:URINE 5 Source of Specimen: URINE 6 Escherichia coli Source of Specimen: URINE Cefazolin <=4 ug/mL Cefazolin with an DIANA <=16 predicts susceptibility to the oral agents cefaclor, cefdinir, cefpodoxime, cefprozil, cefuroxime, cephalexin, and loracarbef when used for therapy of uncomplicated urinary tract infections due to E. coli, Klebsiella pneumoniae, and Proteus mirabilis. 25,000-50,000 colony forming units per m L 7 Source of Specimen: URINE S = Susceptible; [...] S Procedures Date Code Description Status 01/13/2021 53925 Office/Outpatient Established Mo d MDM 30-39 Min Completed 11/29/2020 03740 Office/Outpatient Established Mo d MDM 30-39 Min Completed 11/18/2020 29549 Office/Outpatient Established Mo d MDM 30-39 Min Completed 10/16/2020 21947 Office/Outpatient Established Mo d MDM 30-39 Min Completed 02/09/2019 [id number] Mammogram Completed Medical Devices Description No Information Available Encounters Type Date Location Provider Dx Diagnosis Office Visit 01/13/2021 8:45a [place] [facility] Eric Connelly M. D. F33.0 Major depressive disorder, recurrent, mild I10 Essential (primary) hyperten geraldine J44.9 Chronic obstructive pulmonar y disease, unspecified E78.5 Hyperlipidemia, unspecified R73.01 Impaired fasting glucose Office Visit 11/29/2020 3:40p [place] [facility] Eric Connelly M. D. R19.5 Other fecal abnormalities Office Visit 11/18/2020 11:30a [place] [facility] Eric Connelly M. D. R32 Unspecified urinary incontinence Office Visit 10/16/2020 1:30p [place] [facility] Eric Connelly M. D. R41.82 Altered [...] 9:15 am - Eric Connelly M.D. at [facility] Functional Status Description No Information Available Mental Status Description No Information Available Referrals Refer to Reason for Referral Status Appt Date [facility] Urology Center recurrent UTIs- eval [place] rx Sent [address] [facility], [place] [address] [phone] You, Efra M.D. positive FIT test- eval and rx Sent 12/09/2020 [address] [facility], [address] [place] [address] [phone]
--- OUTSIDE RECORDS SUMMARY | 2021-01-20 09:01 | CCD | Continuity of Care Document ---
Author Author Teena HORNE PA Organization Unknown Address [address] [facility] [address] [place] [address] Phone [phone] Care Team Providers Care Pricing Associate Name Role Phone Eric Connelly M.D. AUTM [phone] Problems Active Problems Provider Date Essential hypertension Efra Orta JR, MD Onset: 06/06/19 17 Allergic asthma without status asthmaticus Efra Fenton MD Onset: 06/05/2016 Body mass index 30+ - obesity Alberto Dailey MD Onset: Tobacco user Alberto Dailey MD Onset: 10/17/2012 Allergic rhinitis Alberto Dailey MD Onset: 08/18/2012 Obstructive sleep apnea syndrome Alberto Dailey MD Onset: 10/14/2011 Obesity Alberto Dailey MD Onset: 12/04/2010 Dyspnea Alberto Dailey MD Onset: 12/04/2010 Emphysematous bronchitis Ivory Russell A.N.Zafar Onset: 08/19/19 11 Abnormal findings on diagnostic imaging of lung Alberto doran MD Onset: 06/05/2010 Allergic rhinitis due to animals Alberto Dailey MD Onset: 06/05/2010 Deviated nasal septum Andreas Stone MD Onset: 11/05/2017 Chronic rhinitis Andreas Stone MD Onset: 11/05/2017 Difficulty speaking Andreas Stone MD Onset: 11/05/2017 Social History Type Date Description Comments Sex Unknown ETOH Use Rarely August Recreational Drug Use Denies Drug Use Tobacco Use Start: Unknown Quit quit end of june Smoking Status Reviewed: 06/03/20 Quit quit end of ay Allergies and adverse reactions Description No Known Drug Allergies Medications Active Medications SIG Qnty Indications Ordering Provide r Date Multivitamins Capsules 1 by mouth every day Unknown Aspirin 81mg Tablets DR 2 by mouth every day Unknown Sertraline HCL 100mg Tablets 1 by mouth every day Unknown Omeprazole 40mg Capsules DR 1 by mouth once a day Unknown Vitamin D3 1000Unit Tablets 1 tab by mouth daily Unknown BIPAP 16/13 [place] Unknown Ezetimibe-Simvastatin 10-10mg Tabl ets 1 qd Unknown Red Yeast Rice 600mg Capsules 1 qd Unknown Advair HFA 230-21mcg/Act Aerosol Inhale Two Puffs By Mouth Twice A Day 36units Alberto Dailey MD Mirtazapine 15mg Tablets Take One Tablet By Mouth AT Bedtime Unknown Amlodipine Besylate 5mg Tablets Eric Connelly M.D. Psyllium 400mg Capsules dailt Unknown Vitamin C 1000mg Tablets Kylie Y Unknown Immunizations CPT Code Status Date Vaccine Lot # [id number] Given 11/26/2015 Influenza Vaccine (Fluvirin) 3 Years Of Age Or Older Q2036 Given 11/26/2015 Influenza Vaccine 3 Years Of Age Or Older (Flulaval) 16921 Given 03/01/2013 Influenza Virus Split 3 Yrs And Above For Intramuscular Use Q2036 Given 12/14/2012 Influenza Vaccine 3 Years Of Age Or Older (Flulaval) Q2036 Given 02/08/2012 Influenza Vaccine 3 Years Of Age Or Older (Flulaval) Q2036 Given 12/04/2010 Influenza Vaccine 3 Years Of Age Or Older (Flulaval) 16701 Given 11/18/2009 Influenza Vaccine 00567 Given 02/26/2009 Influenza Vaccine 08606 Given 02/22/2001 Pneumococcal PPSV23 Vital Signs Date Vital Result Comment 12/09/2020 9:02am BP Systolic 144 mmHg BP Diastolic 88 mmHg Height 71.5 inches 5'11.50" Weight 288.00 lb BMI (Body Mass Index) 39.6 kg/m2 [place] Body Weight 155 lb Weight 130.637 kg BSA (Body Surface Area) 2.47 m2 06/03/2020 9:08am BP Systolic 130 mmHg BP Diastolic 80 mmHg Heart Rate 113 /min O2 % BldC Oximetry 96 % Room Air Height 71.5 inches 5'11.50" Weight 280.00 lb BMI (Body Mass Index) 38.5 kg/m2 [place] Body Weight 155 lb Weight 127.008 kg BSA (Body Surface Area) 2.45 m2 Results Description No Information Available Procedures Description No Information Available Medical Devices Description No Information Available Encounters Description No Information Available Assessments Date Code Description Provider 12/09/2020 R85.89 Other abnormal findi ngs in specimens from digestive organs and abdominal cavity KENNEDY Wang 12/09/2020 K63.5 Polyp of colon KENNEDY Wang 12/09/2020 K57.30 Diverticulosis of la rge intestine without perforation or abscess without bleeding KENNEDY Wang 12/09/2020 K64.9 Unspecified hemorrhoids KENNEDY Byrne Plan of Treatment Future Appointment(s):* 01/23/2021 3:15 pm - Alberto Dailey MD at [facility] 12/09/2020 - KENNEDY Wang* R85.89 Other abnormal findings in specimens from digestive organs and abdominal cavity * K63.5 Polyp of colon * K57.30 Diverticulosis of large intestine without perforation or abscess without bleeding * K64.9 Unspecified hemorrhoids Functional Status Description No Information Available Mental Status Description No Information Available Referrals Refer to Reason for Referral Status Appt Date Efra Orta JR, MD + JARVIS Scheduled [address] [address] [phone]
--- OUTSIDE RECORDS SUMMARY | 2021-01-20 09:02 | CCD ---
Author Author [facility] Organization [facility] Address Unknown Phone Unavailable Care Team Providers Care Weather Teacher Name Role Phone Maring, Lucero PA Unavailable [...] Unavailable Unavailable Maring, Lucero PA Unavailable Unavailable Dhara PIERCE MD Unavailable Unavailable Dhara PIERCE MD Unavailable Unavailable Dhara PIERCE MD Unavailable Unavailable Dhara PIERCE MD Unavailable Unavailable Dhara PIERCE MD Unavailable Unavailable Dhara PIERCE MD Unavailable Unavailable Dhara PIERCE MD Unavailable Unavailable Dhara PIERCE MD Unavailable Unavailable Dhara PIERCE MD Unavailable Unavailable Dhara PIERCE MD Unavailable Unavailable Dhara PIERCE MD Unavailable Unavailable Dhara PIERCE MD Unavailable Unavailable Dhara PIERCE MD Unavailable Unavailable Dhara PIERCE MD Unavailable Unavailable Dhara PIERCE MD Unavailable Unavailable Dhara PIERCE MD Unavailable Unavailable Dhara PIERCE MD Unavailable Unavailable Dhara PIERCE MD Unavailable Unavailable Dhara PIERCE MD Unavailable Unavailable Dhara PIERCE MD Unavailable Unavailable Dhara PIERCE MD Unavailable Unavailable Dhara PIERCE MD Unavailable Unavailable Dhara PIERCE MD Unavailable Unavailable Dhara PIERCE MD Unavailable Unavailable Madhuri BEGUM MD Unavailable [...] DANIEL PHAN Unavailable Unavailable SHY H DANIEL MD Unavailable Unavailable SHY, H DANIEL MD Unavailable Unavailable SHY, H DANIEL MD Unavailable Unavailable SHY, H DANIEL MD Unavailable Unavailable SHY, H DANIEL MD Unavailable Unavailable SHY, H DANIEL MD Unavailable Unavailable SHY, H DANIEL MD Unavailable Unavailable SHY, H DANIEL MD Unavailable Unavailable SHY H DANIEL MD Unavailable Unavailable SHY, H DANIEL MD Unavailable Unavailable SHY, H DANIEL MD Unavailable Unavailable SHY, H DANIEL MD Unavailable Unavailable SHY, H DANIEL MD Unavailable Unavailable SHY, H DANIEL MD Unavailable Unavailable SHY, H DANIEL MD Unavailable Unavailable SHY, H DANIEL MD Unavailable Unavailable SHY, H DANIEL MD Unavailable Unavailable SHY, H DANIEL MD Unavailable Unavailable SHY, H DANIEL MD Unavailable Unavailable SHY, H DANIEL MD Unavailable Unavailable SHY, H DANIEL MD Unavailable Unavailable SHY, H DANIEL MD Unavailable Unavailable SHY H DANIEL MD Unavailable Unavailable SHY H DANIEL PHAN [...] Larry Dailey MD Unavailable Unavailable Dailey, Larry Dominguez MD [...] is protected by Article 27-F of the [facility] Public Health law. If you continue you may have access to information: Regarding HIV / AIDS; Provided by facilities licensed or operated by the [facility] Office of Mental Health; or Provided by the [facility] Office for People With Developmental Disabilities. If such information is present, then the following [facility] mandated warning applies: This information has [...] law may result in a fine or alf sentence or both. A general authorization for the release of medical or other information is NOT sufficient authorization for further disc losure. Family History Family Member Name Family Member Gender Family Member Status Date o f Status Description Data Source(s) Unknown Unknown Problem [facility] ([facility] ) Unknown Male Problem [facility] ([facility] () Unknown Male Problem [facility] ([facility] Unknown Male Problem MEDENT ([facility]) Unknown Unknown Encounters Encounter Providers Location Date Indications Data Source(s ) Outpatient Attender: DANIEL Calles Office 07/2020 07:45:00 AM EST [facility] ([facility] Outpatient Attender: CHIQUIS PIERCE MD 01/12 10:06:26 AM EST - 01/12/2021 01:31:02 PM EST [facility] ([facility] ) Outpatient Attender: DANIEL Calles Office 03:40:00 PM EDT MEDENT ([facility] Outpatient Attender: DANIEL Calles Office 12/2020 11:30:00 AM EDT [facility] ([facility] Outpatient Attender: DANIEL Calles Office 09/2020 01:30:00 PM EDT [facility] ([facility] Outpatient Attender: Lucero BENAVIDES 09/14/19 12:08:12 PM EDT - 09/13/2020 12:50:02 PM EDT [facility] ([facility] ) Outpatient Attender: DANIEL Calles Office 03/2020 09:00:00 AM EDT MED[facility] ([facility] Outpatient Attender: Alberto Dee/Qing/Joe/Eliceo judd 06/03/2020 09:00:00 AM EDT [facility] ([facility] Outpatient Attender: DANIEL Calles Office 03/2020 10:20:00 AM EDT MED[facility] ([facility] Outpatient Attender: DANIEL Calles Office 02/2020 08:30:00 AM EST [facility] ([facility] Outpatient Attender: DANIEL Calles Office 12:00:00 PM EST [facility] ([facility] Immunizations Vaccine Date Status Description Data Source(s) New in 2012. IIV4 10/16/2020 01:39:00 PM EDT completed MEDENT ([facility] COVID-19 VACCINE Moderna 04/29/2020 12:00:00 AM EDT completed [facility] Vaccine Series Complete: YESThis Data wa s Submitted to [facility]. COVID-19 VACCINE, MRNA-1273, LNP-S (MODERNA)/PF 04/29/2020 1 2:00:00 AM EDT completed [facility] COVID-19 VACCINE, MRNA-1273, LNP-S (MODERNA)/PF 04/04/2020 1 2:00:00 AM EST completed [facility] pneumococcal polysaccharide PPV23 03/08/2020 12:10:00 PM EST isabella ARREGUIN ([facility] Medications Medication Brand Name Start Date Product Form Dose Route Admi nistrative Instructions Pharmacy Instructions Status Indications Reaction Description Data Source(s) 800-160 mg 01/12/2021 12:00:00 AM EST tablet 14 TAKE ONE TABLET BY MOUTH TWICE A DAY FOR 7 DAYS TAKE ONE TABLET BY MOUTH TWICE A DAY FOR 7 DAYS SOLD: 01/12/2021 [employer] SUPREP BOWEL PREP KIT 17.5-3.13-1.6 gram SODIUM, POTASSIUM,M AG SULFATES 01/06/2021 12:00:00 AM EST recon soln 354 TAKE PER DOCTORS BOWEL PREP INSTRUCTIONS TAKE PER DOCTORS BOWEL PREP INSTRUCTIONS SOLD: 01/09/2021 [facility] 120 ACTUAT Fluticasone propionate 0.23 M G/ACTUAT / salmeterol 0.021 MG/ACTUAT Metered Dose Inhaler [Advair] 230-21 mcg/actuation FLUTICASONE PROPION/SALMETEROL 12/28/2020 12:00:00 AM EST HFA aerosol inhaler 12 INHALE TWO PUFFS BY MOUTH TWICE A DAY INHALE TWO PUFFS BY MOUTH TWICE A DAY SOLD: 12/28/2020 [facility] 5 mg 12/06/2020 12:00:00 AM EDT tablet 90 1 BY MOUTH ONCE DAILY 1 BY MOUTH ONCE DAILY SOLD: 12/09/2020 [facility] NITROFURANTOIN, MACROCRYSTALS 100 MG Oral Capsule Nitrofuran toin Macrocrystal 11/22/2020 12:00:00 AM EDT ORAL completed MEDENT ([facility] 100 mg 11/22/2020 12:00:00 AM EDT capsule 14 TAKE ONE CAPSULE BY MOUTH TWICE A DAY FOR 7 DAYS TAKE ONE CAPSULE BY MOUTH TWICE A DAY FOR 7 DAYS SOLD: 11/22/2020 [facility] Ciprofloxacin 500 MG Oral Tablet [Cipro] Cipro 11/18/2020 12:00: 00 AM EDT ORAL completed MEDENT ([facility] Ciprofloxacin 500 MG Oral [...] 10/16/2020 12:00:00 AM EDT a ctive MEDENT ([facility] 15 mg 10/16/2020 12:00:00 AM EDT tablet 90 TAKE ONE TABLET BY MOUTH AT BEDTIME TAKE ONE TABLET BY MOUTH AT BEDTIME SOLD: 01/09/2021 [facility] 15 mg 10/16/2020 12:00:00 AM EDT tablet 90 TAKE ONE TABLET BY MOUTH AT BEDTIME TAKE ONE TABLET BY MOUTH AT BEDTIME SOLD: 10/16/2020 [facility] Psyllium Husk 10/16/2020 12:00:00 AM EDT acti ve MEDENT ([facility] Mirtazapine 15 MG Oral Tablet Mirtazapine 10/16/2020 12:00:00 AM EDT ORAL active MED[facility] ([facility] 40 mg 07/22/2020 12:00:00 AM EDT capsule,delayed release (DR/EC) 90 TAKE ONE CAPSULE BY MOUTH EVERY DAY TAKE ONE CAPSULE BY MOUTH EVERY DAY SOLD: 07/24/2020 [facility] 40 mg 07/22/2020 12:00:00 AM EDT capsule,delayed release (/EC) 90 TAKE ONE CAPSULE BY MOUTH EVERY [...] 04/08/2020 12:00:00 A M EST active MEDENT ([facility] 5 mg 04/08/2020 12:00:00 [...] 12:00:00 AM EST ORAL active M EDENT ([facility] 120 ACTUAT [...] DAY NEEDED SOLD: 11/29/2019 [facility] 50 mg 10/17/2019 12:00:00 AM EDT [...] MG TABLET SOLD: 04/24/2020 [facility] 100 mg 10/17/2019 12:00:00 AM EDT tablet 90 TAKE ONE TABLET BY MOUTH EVERY DAY WITH THE 50 MG TABLET TAKE ONE TABLET BY MOUTH EVERY DAY WITH THE 50 MG TABLET SOLD: 01/25/2020 [facility] Insurance Providers Payer name Policy type / Coverage type Policy ID Covered green party ID Covered green party's relationship to redmond Policy [place] Plan Information I [facility] [id number] Bea [id number] GROUP [employer] INSURANCE [id number] SP [id number] [facility] [id number] SP [id number] [place] 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C W [id number] Empl [id number] [place] 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 Workers Compensation [id number] Self [id number] MEDICARE BLUE PPO 306 [id number] SP [id number] 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C [id number] SP [id number] [facility] Advantage Medigap Part B [id number] Self [id number] [facility] (pr) Medigap Part B [id number] Self [id number] BC/BS [facility] Medigap Part B [id number] Self Medicare Advantage BS Medigap Part B [id number] Self [facility] MEDICARE [id number] MEDICARE BLUE PPO 306 [id number] SP [id number] [facility] MEDICARE [id number] U [id number] Self [id number] [facility] MED[facility] BLUE PPO G [id number] Self [id number] [facility] BCBS MEDICARE [id number] Bea [id number] [facility] MEDIC[facility] [id number] Bea [id number] [facility] Advantage Commercial [id number] Self [id number] MEDICARE BLUE PPO 306 [id number] SP [id number] Medicare Blue Ppo Commercial [id number] Self [id number] Medicare Blue Ppo Commercial [id number] Self [id number] Medicare Blue Ppo Commercial [id number] Self [id number] [employer] [id number] Self [id number] WELLCARE [id number] SP [id number] [employer] [id number] SP [id number] [employer] [id number] Bea f [id number] [employer] [facility] [employer] [id number] Bea f [id number] BS Medicare Blue Ppo/Hmo Commercial [id number] Self [id number] BS Medicare Blue Ppo/Hmo Commercial [id number] Self [id number] [facility] [id number] SP [id number] ANSI-Medicare Part B [id number] MEDICARE BLUE PPO 306 [id number] SP [id number] MEDICARE BLUE PPO 306 [id number] SP [id number] Commercial [id number] Self BC/BS Of [facility] NanoPack [id number] Self [facility] [id number] 0 [id number] EXCELLUS BCBS B [id number] S [id number] [facility]/GHI [facility] O [id number] S [id number] Ghi Medigap Part B [id number] Self [id number] GHI [employer] -O/P [id number] 18 [id number] BLUE CROSS BLUE SHIELD -O/P [id number] Commercial [id number] Self BC/BS [facility] Commercial [id number] Self Wellcare Health Plans(To) Commercial [id number] Self [id number] GROUP HEALTH INSURANCE O [id number] S [id number] DEPARTMENT OF LABOR O [id number] S [id number] Ghi/[employer] Medigap Part B [id number] Self [employer] [id number] 0 [id number] WELLCARE [facility] O [id number] S [id number] [facility] BC/BS Commercial [id number] Self MEDICARE BLUE PPO 306 [id number] SP [id number] WELLCARE [id number] SP [id number] WELLCARE O [id number] S [id number] MEDICARE BLUE PPO P [id number] S [id number] 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C [id number] SP [id number] BS Medicare Blue Ppo/Hmo Commercial [id number] Self [id number] Ghi [employer]blem Medigap Part B [id number] Self [id number] BS Medicare Blue Ppo/Hmo Commercial [id number] Self [id number] BS Medicare Blue Ppo/Hmo Commercial [id number] Self [id number] BCBS/[employer] Commercial [id number] Self [id number] Acc/Dol ([place] Labor) (WC) Workers Compensation [id number] Self [id number] Problems, Conditions, and Diagnoses No Information Surgeries/Procedures Procedure Description Date Indications Data Source(s) OFFICE OUTPATIENT VISIT 25 MINUTES 01/13/2021 12:00:00 AM EST MED[facility] ([facility] OFFICE OUTPATIENT VISIT 25 MINUTES 11/29/2020 12:00:00 AM EDT MEDENT ([facility] OFFICE OUTPATIENT VISIT 25 MINUTES 11/18/2020 12:00:00 AM EDT MED[facility] ([facility] OFFICE OUTPATIENT VISIT 25 MINUTES 10/16/2020 12:00:00 AM EDT MEDENT ([facility] OFFICE OUTPATIENT VISIT 25 MINUTES 07/10/2020 12:00:00 AM EDT MED[facility] ([facility] Spirometry 06/03/2020 12:00:00 AM EDT M EDENT ([facility], ) OFFICE OUTPATIENT VISIT 25 MINUTES 05/10/2020 12:00:00 AM EDT MEDENT ([facility] Electrocardiogram Complete 04/08/2020 12:00:00 AM EST MEDENT ([facility] Results ID Date Data Source [id number] 01/15/2021 10:05:00 AM EST MEDENT ([facility] Name Value Range Interpretation Code Description Data Jackie rce(s) Supporting Document(s) Laboratory test finding (navigational concept) Laboratory test result MEDENT ([facility] ASSAY INFORMATION: Real Time RT-PCR NOTE: The COVID-19 assay has been cleared by the U.S. Food and Drug Administration under the Emergency Use Authorization (EUA). [facility] are designated as high complexity laboratories by the Clinical Laboratory Improvement Amendments of 1988(CLIA) and are qualified to perform this test. Not Detected ID Date Data Source [id number] 01/13/2021 09:03:00 AM EST MEDENT ([facility] Name Value Range Interpretation Code Description Data Jackie rce(s) Supporting Document(s) Hemoglobin A1c/Hemoglobin.total in Blood 6.1 % 4.50-6.20 MEDENT ([facility] ID Date Data Source [id number] 01/13/2021 09:03:00 AM EST MEDENT ([facility] Name Value Range Interpretation Code Description Data Ajckie rce(s) Supporting Document(s) Trig 131 mg/dL 40-200 MEDENT ([facility] CHRONIC KIDNEY DISEASE [...] Serum or Plasma 54 mg/dL 45-65 MEDENT ([facility] CHRONIC KIDNEY [...] ADOLESCENTS REPRESENTS INDIVIDUALA AGED 2-19 YEARS EXCLUSIVE. Chol 190 mg/dL 0-200 [facility] ([facility] CHRONIC [...] INDIVIDUALA AGED 2-19 YEARS EXCLUSIVE. Cho/HDL Ratio 3.5 CALC [facility] CHRONIC KIDNEY DISEASE STAGING [...] REPRESENTS INDIVIDUALA AGED 2-19 YEARS EXCLUSIVE. LDL_C 110 Calc 75-129 KALLIE ([facility] CHRONIC KIDNEY DISEASE STAGING [...] 2-19 YEARS EXCLUSIVE. ID Date Data Source [id number] 01/13/2021 09:03:00 AM EST MEDENT ([facility] Name Value Range Interpretation Code Description Data Jackie rce(s) Supporting Document(s) BUN 12 mg/dL 8-23 MEDENT ([facility] CHRONIC KIDNEY DISEASE [...] REPRESENTS INDIVIDUALA AGED 2-19 YEARS EXCLUSIVE. Glu 134 mg/dL 70-110 Above high normal MEDENT ([facility] CHRONIC KIDNEY [...] REPRESENTS INDIVIDUALA AGED 2-19 YEARS EXCLUSIVE. Creat 1.0 mg/dL 0.5-1.0 MED[facility] ([facility] CHRONIC KIDNEY DISEASE [...] INDIVIDUALA AGED 2-19 YEARS EXCLUSIVE. BUN/Creatinine Ratio 11.7 CALC MEDENT ([facility] CHRONIC KIDNEY [...] REPRESENTS INDIVIDUALA AGED 2-19 YEARS EXCLUSIVE. Na 141 mmol/L 136-145 [facility] CHRONIC KIDNEY DISEASE STAGING [...] REPRESENTS INDIVIDUALA AGED 2-19 YEARS EXCLUSIVE. K 4.2 mmol/L 3.5-5.1 MEDLESLI ([facility] CHRONIC KIDNEY DISEASE [...] REPRESENTS INDIVIDUALA AGED 2-19 YEARS EXCLUSIVE. CL 104.0 mmol/L 98.0-107.0 MEDLESLI ([facility] CHRONIC KIDNEY DISEASE [...] REPRESENTS INDIVIDUALA AGED 2-19 YEARS EXCLUSIVE. Co2 20.6 mmol/L 22.0-29.0 Below low normal [facility] ([facility] CHRONIC KIDNEY [...] REPRESENTS INDIVIDUALA AGED 2-19 YEARS EXCLUSIVE. CA 9.5 mg/dL 8.6-10.2 [facility] ([facility] [...] REPRESENTS INDIVIDUALA AGED 2-19 YEARS EXCLUSIVE. TP 6.2 g/dL 6.6-8.7 Below low normal MEDENT ( [...] INDIVIDUALA AGED 2-19 YEARS EXCLUSIVE. A/G Ratio 2.4 CALC [facility] ([facility] [...] REPRESENTS INDIVIDUALA AGED 2-19 YEARS EXCLUSIVE. Alp 89.4 U/L 35-129 [facility] ([facility] [...] REPRESENTS INDIVIDUALA AGED 2-19 YEARS EXCLUSIVE. Globulin 1.8 CALC [facility] ([facility] [...] INDIVIDUALA AGED 2-19 YEARS EXCLUSIVE. Alt (SGPT) 16 U/L 0-41 [facility] ([facility] [...] REPRESENTS INDIVIDUALA AGED 2-19 YEARS EXCLUSIVE. Tbili 0.36 mg/dL 0.0-1.2 [facility] ([facility], [...] INDIVIDUALA AGED 2-19 YEARS EXCLUSIVE. Anion Gap 20 mmol/L [facility] ([facility] [...] REPRESENTS INDIVIDUALA AGED 2-19 YEARS EXCLUSIVE. Osmolality-Calculated 282.6 CALC MED ENT ([facility] [...] INDIVIDUALA AGED 2-19 YEARS EXCLUSIVE. eGFR Non-Afr. [place] 59 # MEDENT ([facility] CHRONIC KIDNEY [...] REPRESENTS INDIVIDUALA AGED 2-19 YEARS EXCLUSIVE. eGFR 68 # MED[facility] ( [facility] [...] 2-19 YEARS EXCLUSIVE. ID Date Data Source [id number] 12/08/2020 09:39:00 AM EDT MEDENT ([facility] Name Value Range Interpretation Code Description Data Jackie rce(s) Supporting Document(s) Laboratory test finding (navigational concept) 0.00 ng/mL 0 .00-0.08 Normal (applies to non-numeric results) [facility] ID Date Data Source [id number] 11/18/2020 03:58:00 PM EDT MEDENT ([facility] Name Value Range Interpretation Code Description Data Jackie rce(s) Supporting Document(s) Bacteria identified in Urine by Culture Laboratory test result Abnormal (applies to non-numeric results) MEDENT ([facility] SRC:URINE Urine Culture, Routine Laboratory test result Ab normal (applies to non-numeric results) MEDENT ([facility] ) SRC:URINE Antimicrobial Susceptibility Laboratory test result MEDENT ([facility] SRC:URINE ID Date Data Source [id number] 11/18/2020 03:55:00 PM EDT MEDENT ([facility] Name Value Range Interpretation Code Description Data Jackie rce(s) Supporting Document(s) Color Urine Laboratory test result M EDENT ([facility] Appearance of Urine Laboratory test result MEDENT ([facility] Specific [place] 1.020 1.00-1.03 MEDENT ([facility] PH Urine 5.0 5.0-8.0 MEDENT ([facility] Glucose Urine Laboratory test result MEDENT ([facility] Bilirubin.total [Presence] in Urine by Test strip Laboratory test res ult MEDENT ([facility] Ketones Laboratory test result MEDENT ([facility] Blood Urine Laboratory test result M EDENT ([facility] Protein Urine Laboratory test result [facility] ([facility] Nitrite Laboratory test result MEDENT ([facility] Urobilinogen 0.2 EU/dl 0.2-1.0 MED[facility] ([facility] Leukocytes Laboratory test result Above high normal MEDENT ([facility] ID Date Data Source [id number] 07/10/2020 09:15:00 AM EDT MEDENT ([facility] Name Value Range Interpretation Code Description Data Jackie rce(s) Supporting Document(s) Chol 178 mg/dL 0-200 MED[facility] ([facility] CHRONIC [...] YEARS EXCLUSIVE. Trig 119 mg/dL 40-200 MED[facility] ([facility] CHRONIC [...] AGED 2-19 YEARS EXCLUSIVE. Cho/HDL Ratio 3.4 [facility] KALLIE ([facility] CHRONIC KIDNEY DISEASE [...] 2-19 YEARS EXCLUSIVE. ID Date Data Source [id number] 07/10/2020 09:15:00 AM EDT MEDLESLI ([facility] Name Value Range Interpretation Code Description Data Jackie rce(s) Supporting Document(s) Glu 120 mg/dL 70-110 Above high normal MEDENT ([facility] CHRONIC KIDNEY [...] REPRESENTS INDIVIDUALA AGED 2-19 YEARS EXCLUSIVE. BUN 11 mg/dL 8-23 MEDENT ([facility] CHRONIC KIDNEY DISEASE [...] YEARS EXCLUSIVE. BUN/Creatinine Ratio 11.9 CALC MEDENT ([facility] CHRONIC KIDNEY [...] YEARS EXCLUSIVE. Creat 0.9 mg/dL 0.5-1.0 MEDENT ([facility] CHRONIC [...] YEARS EXCLUSIVE. Na 142 mmol/L 136-145 MEDENT ([facility] CHRONIC KIDNEY DISEASE [...] 2-19 YEARS EXCLUSIVE. K 4.1 mmol/L 3.5-5.1 MEDLESLI ([facility] CHRONIC KIDNEY [...] 2-19 YEARS EXCLUSIVE. CL 105.7 mmol/L 98.0-107.0 MEDLESLI ([facility] CHRONIC KIDNEY DISEASE STAGING [...] YEARS EXCLUSIVE. Co2 23.6 mmol/L 22.0-29.0 MEDENT ([facility] CHRONIC KIDNEY DISEASE STAGING PER [...] YEARS EXCLUSIVE. CA 9.4 mg/dL 8.6-10.2 [facility] CHRONIC KIDNEY DISEASE STAGING [...] EXCLUSIVE. Alp 94.0 U/L 35-129 [facility] ([facility] CHRONIC KIDNEY DISEASE STAGING PER NKF: [...] EXCLUSIVE. Ast (Sgot) 15 U/L 0-40 [facility] CHRONIC KIDNEY DISEASE STAGING [...] 2-19 YEARS EXCLUSIVE. Anion Gap 17 mmol/L KALLIE ([facility] CHRONIC KIDNEY DISEASE [...] INDIVIDUALA AGED 2-19 YEARS EXCLUSIVE. eGFR Non-Afr. [place] 67 # [facility] ([facility] CHRONIC KIDNEY [...] 2-19 YEARS EXCLUSIVE. ID Date Data Source [id number] 03/08/2020 01:15:00 PM EST MEDENT ([facility] [employer] [facility] Name Value Range Interpretation Code Description Data Jackie rce(s) Supporting Document(s) Chol 176 mg/dL 0-200 MEDENT ([facility] [employer] [facility] CHRONIC KIDNEY DISEASE STAGING PER [...] YEARS EXCLUSIVE. Trig 123 mg/dL 40-200 MEDENT ([facility] CHRONIC [...] YEARS EXCLUSIVE. LDL_C 98 Calc 75-129 [facility] ([facility] YEARS EXCLUSIVE. Cho/HDL Ratio 3.3 CALC MEDENT ([facility] CHRONIC KIDNEY DISEASE [...] 2-19 YEARS EXCLUSIVE. ID Date Data Source [id number] 03/08/2020 01:15:00 PM EST MEDLESLI ([facility] Name Value Range Interpretation Code Description Data Jackie rce(s) Supporting Document(s) Glu 103 mg/dL 70-110 MEDLESLI ([facility] CHRONIC [...] 2-19 YEARS EXCLUSIVE. BUN 12 mg/dL 8-23 MEDLESLI ([facility] CHRONIC [...] YEARS EXCLUSIVE. BUN/Creatinine Ratio 12.5 CALC MEDENT ([facility] CHRONIC KIDNEY [...] YEARS EXCLUSIVE. Creat 0.9 mg/dL 0.5-1.0 MEDENT ([facility] CHRONIC [...] YEARS EXCLUSIVE. CL 102.3 mmol/L 98.0-107.0 MEDENT ([facility] CHRONIC KIDNEY DISEASE [...] EXCLUSIVE. Co2 23.3 mmol/L 22.0-29.0 [facility] ([facility] CHRONIC KIDNEY DISEASE STAGING PER [...] YEARS EXCLUSIVE. CA 9.6 mg/dL 8.6-10.2 [facility] CHRONIC KIDNEY DISEASE STAGING [...] Alt (SGPT) 19 U/L 0-41 MEDENT ([facility] [...] AGED 2-19 YEARS EXCLUSIVE. eGFR 77 # KALLIE ( [facility] CKD-EPI Anion Gap 16 mmol/L KALLIE ([facility] CHRONIC KIDNEY DISEASE [...] INDIVIDUALA AGED 2-19 YEARS EXCLUSIVE. eGFR Non-Afr. [place] 67 # KALLIE ([facility] CKD-EPI Procedure Social History No Information Vital Signs ID Date Data Source UNK Name Value Range Interpretation Code Description Data Source(s) Systolic blood pressure 118 mm[Hg] 118 mm[Hg] M LILI ([facility] Body temperature 98.3 [degF] 98.3 [degF] KALLIE ([facility] Heart rate 96 /min 96 /min KALLIE ([facility] Respiratory rate 18 /min 18 /min MEDENT ( [facility] Body height 70 [in_i] 70 [in_i] MEDENT ([facility] 5'10" [place] body weight 150 [lb_av] 150 [lb_av] MEDEN T ([facility] Oxygen saturation in Arterial blood by Pulse oximetry 96 % 96 % MEDENT ([facility] Diastolic blood pressure 76 mm[Hg] 76 mm[Hg] MEDENT ([facility] Systolic blood pressure 144 mm[Hg] 144 mm[Hg] M EDENT ([facility]) Diastolic blood pressure 88 mm[Hg] 88 mm[Hg] [facility] Body height 71.5 [in_i] 71.5 [in_i] [facility] 5'11.50" Body weight 288.00 [lb_av] 288.00 [lb_av] MEDEN T ([facility]) Body mass index (BMI) [Ratio] 39.6 kg/m2 39.6 k g/m2 [facility] ([facility]) [place] body weight 155 [lb_av] 155 [lb_av] MEDEN T ([facility]) Body weight 130.637 kg 130.637 kg [facility] ([facility]) Body surface area Derived from formula 2.47 m2 2.47 m2 [facility] ([facility]) [place] body weight 150 [lb_av] 150 [lb_av] MEDEN T ([facility] Systolic blood pressure 128 mm[Hg] 128 mm[Hg] M EDENT ([facility] Diastolic blood pressure 82 mm[Hg] 82 mm[Hg] MEDENT ([facility] Oxygen saturation in Arterial blood by Pulse oximetry 98 % 98 % [facility] Body temperature 97.6 [degF] 97.6 [degF] MEDENT ([facility] Heart rate 118 /min 118 /min MEDENT ([facility] Respiratory rate 18 /min 18 /min MEDENT ( [facility] Body height 70 [in_i] 70 [in_i] MEDENT ([facility] 5'10" Body weight 289.00 [lb_av] 289.00 [lb_av] MEDEN T ([facility] Body mass index (BMI) [Ratio] 41.5 kg/m2 41.5 k g/m2 MEDENT ([facility] Systolic blood pressure 146 mm[Hg] 146 mm[Hg] M EDENT ([facility] Respiratory rate 16 /min 16 /min MEDENT ( [facility] Body weight 283.00 [lb_av] 283.00 [lb_av] MEDEN T ([facility] [place] body weight 150 [lb_av] 150 [lb_av] MEDEN T ([facility] Body mass index (BMI) [Ratio] 40.6 kg/m2 40.6 k g/m2 MEDENT ([facility] Body height 70 [in_i] 70 [in_i] MEDENT ([facility] 5'10" Oxygen saturation in Arterial blood by Pulse oximetry 94 % 94 % MEDENT ([facility] Body temperature 97.8 [degF] 97.8 [degF] MEDENT ([facility] Diastolic blood pressure 88 mm[Hg] 88 mm[Hg] MEDENT ([facility] Heart rate 97 /min 97 /min MEDENT ([facility] Body height 70 [in_i] 70 [in_i] MEDENT ([facility] 5'10" [place] body weight 150 [lb_av] 150 [lb_av] MEDEN T ([facility] Systolic blood pressure 124 mm[Hg] 124 mm[Hg] M EDENT ([facility] Diastolic blood pressure 76 mm[Hg] 76 mm[Hg] MEDENT ([facility] Body weight 275.00 [lb_av] 275.00 [lb_av] MEDEN T ([facility] Body mass index (BMI) [Ratio] 39.5 kg/m2 39.5 k g/m2 MEDENT ([facility] Oxygen saturation in Arterial blood by Pulse oximetry 96 % 96 % MEDENT ([facility] Body temperature 97.9 [degF] 97.9 [degF] MEDENT ([facility] Heart rate 104 /min 104 /min MEDENT ([facility] Respiratory rate 18 /min 18 /min MEDENT ( [facility] Body temperature 97.3 [degF] 97.3 [degF] MEDENT ([facility] Diastolic blood pressure 80 mm[Hg] 80 mm[Hg] MEDENT ([facility] Respiratory rate 18 /min 18 /min MEDENT ( [facility] Body height 70 [in_i] 70 [in_i] MEDENT ([facility] 5'10" [place] body weight 150 [lb_av] 150 [lb_av] MEDEN T ([facility] Body mass index (BMI) [Ratio] 40.0 kg/m2 40.0 k g/m2 MEDENT ([facility] Oxygen saturation in Arterial blood by Pulse oximetry 95 % 95 % MEDENT ([facility] Heart rate 96 /min 96 /min MEDENT ([facility] Systolic blood pressure 124 mm[Hg] 124 mm[Hg] M EDENT ([facility] Body weight 279.00 [lb_av] 279.00 [lb_av] MEDEN T ([facility] Oxygen saturation in Arterial blood by Pulse oximetry 96 % 96 % [facility] ([facility], ) Room Air Body height 71.5 [in_i] 71.5 [in_i] MEDENT ([facility], ) 5'11.50" Body weight 280.00 [lb_av] 280.00 [lb_av] MEDEN T ([facility]) Body mass index (BMI) [Ratio] 38.5 kg/m2 38.5 k g/m2 [facility] ([facility]) [place] body weight 155 [lb_av] 155 [lb_av] MEDEN T ([facility]) Body weight 127.008 kg 127.008 kg [facility] ([facility]) Body surface area Derived from formula 2.45 m2 2.45 m2 [facility] ([facility]) Systolic blood pressure 130 mm[Hg] 130 mm[Hg] [facility] Diastolic blood pressure 80 mm[Hg] 80 mm[Hg] [facility] ([facility]) Heart rate 113 /min 113 /min [facility] ([facility]) Oxygen saturation in Arterial blood by Pulse oximetry 96 % 96 % [facility] ([facility]) Room Air Body height 71.5 [in_i] 71.5 [in_i] [facility] ([facility]) 5'11.50" Body weight 280.00 [lb_av] 280.00 [lb_av] MEDEN T ([facility]) Body mass index (BMI) [Ratio] 38.5 kg/m2 38.5 k g/m2 [facility] ([facility]) [place] body weight 155 [lb_av] 155 [lb_av] MEDEN T ([facility]) Body weight 127.008 kg 127.008 kg [facility] ([facility]) Body surface area Derived from formula 2.45 m2 2.45 m2 [facility] ([facility]) Body height 70 [in_i] 70 [in_i] MEDENT ([facility] 5'10" Systolic blood pressure 124 mm[Hg] 124 mm[Hg] [facility] Heart rate 116 /min 116 /min [facility] ([facility] Diastolic blood pressure 74 mm[Hg] 74 mm[Hg] [facility] Body temperature 98.0 [degF] 98.0 [degF] MEDENT ([facility] Respiratory rate 18 /min 18 /min MEDENT ( [facility] Body weight 278.00 [lb_av] 278.00 [lb_av] MEDEN T ([facility] [place] body weight 150 [lb_av] 150 [lb_av] MEDEN T ([facility] Body mass index (BMI) [Ratio] 39.9 kg/m2 39.9 k g/m2 MEDENT ([facility] Oxygen saturation in Arterial blood by Pulse oximetry 98 % 98 % MEDENT ([facility] Oxygen saturation in Arterial blood by Pulse oximetry 96 % 96 % MEDENT ([facility] Systolic blood pressure 156 mm[Hg] 156 mm[Hg] M EDENT ([facility] Diastolic blood pressure 76 mm[Hg] 76 mm[Hg] MEDENT ([facility] Body temperature 97.7 [degF] 97.7 [degF] MEDENT ([facility] Heart rate 98 /min 98 /min MEDENT ([facility] Respiratory rate 18 /min 18 /min MEDENT ( [facility] Body height 70 [in_i] 70 [in_i] MEDENT ([facility] 5'10" Body weight 282.00 [lb_av] 282.00 [lb_av] MEDEN T ([facility] [place] body weight 150 [lb_av] 150 [lb_av] MEDEN T ([facility] Body mass index (BMI) [Ratio] 40.5 kg/m2 40.5 k g/m2 MEDENT ([facility] Respiratory rate 16 /min 16 /min MED[facility] ( [facility] Heart rate 90 /min 90 /min MEDENT ([facility] Systolic blood pressure 150 mm[Hg] 150 mm[Hg] M EDENT ([facility] Diastolic blood pressure 90 mm[Hg] 90 mm[Hg] KALLIE ([facility] Body weight 279.00 [lb_av] 279.00 [lb_av] LULUEN T ([facility], ) Oxygen saturation in Arterial blood by Pulse oximetry 97 % 97 % [facility] ([facility], ) Room Air Body height 71.5 [in_i] 71.5 [in_i] [facility] ([facility], ) 5'11.50" Body mass index (BMI) [Ratio] 38.4 kg/m2 38.4 k g/m2 [facility] ([facility], ) [place] body weight 155 [lb_av] 155 [lb_av] LULUEN T ([facility], ) Body weight 126.554 kg 126.554 kg [facility] ([facility]) Body surface area Derived from formula 2.44 m2 2.44 m2 [facility] ([facility], ) Systolic blood pressure 120 mm[Hg] 120 mm[Hg] M EDLESLI ([facility], ) Diastolic blood pressure 82 mm[Hg] 82 mm[Hg] [facility] ([facility], ) Heart rate 99 /min 99 /min [facility] ([facility], )
[2021-01-20] MEDS ORDERED: propofoL 200 MG/20 ML VIAL As Ordered ONE (10:06)
--- NOTE | 2021-01-20 10:18 | ROOR ---
Patient Name: Teena Reis Procedure Date: 01/20/2021 9:50 AM Date of : 1955 Age: 65 Room: [facility] Gender: Female Note Status: Finalized Procedure: Colonoscopy Indications: High risk colon cancer surveillance: Personal history of colonic polyps Providers: Efra Orta Jr, MD Referring MD: DANIEL BEGUM MD Requesting Provider: Medicines: Propofol per Anesthesia Complications: No immediate complications. Procedure: Pre-Anesthesia Assessment: - Prior to the procedure, a History and Physical was performed, and patient medications and allergies were reviewed. The patient is competent. The risks and benefits of the procedure and the sedation options and risks were discussed with the patient. All questions were answered and informed consent was obtained. Patient identification and proposed procedure were verified by the physician and the nurse in the pre-procedure area and in the procedure room. Mental Status Examination: alert and oriented. Airway Examination: normal oropharyngeal airway and neck mobility. Respiratory Examination: clear to auscultation. CV Examination: normal. ASA Grade Assessment: II - A patient with mild systemic disease. After reviewing the risks and benefits, the patient was deemed in satisfactory condition to undergo the procedure. The anesthesia plan was to use moderate sedation / analgesia (conscious sedation). Immediately prior to administration of medications, the patient was re-assessed for adequacy to receive sedatives. The heart rate, respiratory rate, oxygen saturations, blood pressure, adequacy of pulmonary ventilation, and response to care were monitored throughout the procedure. The physical status of the patient was re-assessed after the procedure. The Colonoscope was introduced through the anus and advanced to the cecum, identified by appendiceal orifice and ileocecal valve. The colonoscopy was performed without difficulty. The patient tolerated the procedure well. The quality of the bowel preparation was adequate. Findings: The rectum, recto-sigmoid colon, ascending colon, cecum, appendiceal orifice and ileocecal valve appeared normal. Four polyps were found in the descending colon, transverse colon and ascending colon. The polyps were small in size. These polyps were removed with a cold snare. Resection and retrieval were complete. Impression: - The rectum, recto-sigmoid colon, ascending colon, cecum, appendiceal orifice and ileocecal valve are normal. - Four small polyps in the descending colon, in the transverse colon and in the ascending colon, removed with a cold snare. Resected and retrieved. Recommendation: - Discharge patient to home (ambulatory). - Repeat colonoscopy in 5 years for surveillance. Procedure Code(s): --- Professional --- [id number], Colonoscopy, flexible; with removal of tumor(s), polyp(s), or other lesion(s) by snare technique Diagnosis Code(s): --- Professional --- Z86.010, Personal history of colonic polyps K63.5, Polyp of colon CPT copyright 2019 [employer]. All rights reserved. The codes documented in this report are preliminary and upon requirements manager review may be revised to meet current compliance requirements. Efra Orta MD Efra Orta Jr, MD 01/20/2021 10:17:45 AM Electronically signed by Efra Orta Jr, MD Number of Addenda: 0 Note Initiated On: 01/20/2021 9:50 AM Estimated Blood Loss: Estimated blood loss: none.
[2021-01-20 10:30] VITALS: BP 146/68
== END 2021-01-20 10:37 | disposition home or self-care (01) ==
LOC: M OPP 08:57
PROVIDERS: ATTEND Surgery
DX: Z86.010 Personal history of colon polyps (principal); D12.6 Benign neoplasm of colon, unspecified; K57.30 Diverticulosis of large intestine without perforation or abscess without bleeding; K64.8 Other hemorrhoids; R19.5 Other fecal abnormalities; G47.33 Obstructive sleep apnea (adult) (pediatric); J44.9 Chronic obstructive pulmonary disease, unspecified; Z79.82 Long term (current) use of aspirin; Z79.899 Other long term (current) drug therapy

== ENCOUNTER → 2021-02-10 | Outpatient (REF) | payer MEDICARE ==
[~2021-02-10] MED LIST changes: -LIDOCAINE 2% 100MG/5ML SDV (FOR ANES.) As Ordered ONE; -NS 1,000 ML IV ONE; -propofoL 200 MG/20 ML VIAL As Ordered ONE
[2021-02-10 14:09] LABS: APPEARANCE, URINE HAZY (CLEAR); BACTERIA, URINE AUTO NEGATIVE (NEGATIVE); BILIRUBIN, URINE AUTO NEGATIVE (NEGATIVE); BLOOD, URINE BLOOD NEGATIVE (NEGATIVE); COLOR, URINE YELLOW (YELLOW); GLUCOSE, URINE (UA) AUTO NEGATIVE (NEGATIVE); KETONE, URINE AUTO NEGATIVE (NEGATIVE); LEUKOCYTE ESTERASE, URINE AUTO 3+ (NEGATIVE); MUCUS, URINE SMALL (NEGATIVE); NITRITE, URINE AUTO NEGATIVE (NEGATIVE); PROTEIN, URINE AUTO NEGATIVE (NEGATIVE); RBC, URINE AUTO 1 /HPF (0-3); SPECIFIC GRAVITY URINE AUTO 1.018 (1.002-1.035); SQUAMOUS EPITHELIAL CELL UR AU 3 /HPF (0-6); UROBILINOGEN, URINE AUTO 0.2 mg/dL (0.0-2.0); WBC, URINE AUTO 29 /HPF (0-3)
== END ==
LOC: M SMT 13:07
PROVIDERS: ATTEND Nurse Practitioner Women's Health
DX: N39.0 Urinary tract infection, site not specified (principal)

== ENCOUNTER → 2021-02-14 | Outpatient (CLI) | payer MEDICARE | LOC: EEVIPCON 09:02 → M RAD 09:02 | PROVIDERS: ATTEND Nurse Practitioner Women's Health | DX: N39.0 Urinary tract infection, site not specified (principal) ==

== ENCOUNTER → 2021-03-07 | Outpatient (REF) | payer MEDICARE ==
[2021-03-07 11:40] LABS: APPEARANCE, URINE CLOUDY (CLEAR); BACTERIA, URINE AUTO NEGATIVE (NEGATIVE); BILIRUBIN, URINE AUTO NEGATIVE (NEGATIVE); BLOOD, URINE BLOOD NEGATIVE (NEGATIVE); COLOR, URINE YELLOW (YELLOW); GLUCOSE, URINE (UA) AUTO NEGATIVE (NEGATIVE); KETONE, URINE AUTO TRACE mg/dL (NEGATIVE); LEUKOCYTE ESTERASE, URINE AUTO NEGATIVE (NEGATIVE); MUCUS, URINE SMALL (NEGATIVE); NITRITE, URINE AUTO NEGATIVE (NEGATIVE); PROTEIN, URINE AUTO NEGATIVE (NEGATIVE); RBC, URINE AUTO 0 /HPF (0-3); SPECIFIC GRAVITY URINE AUTO 1.025 (1.002-1.035); SQUAMOUS EPITHELIAL CELL UR AU 9 /HPF (0-6); WBC, URINE AUTO 2 /HPF (0-3)
== END ==
LOC: M SFHCCLAY 09:14
PROVIDERS: ATTEND Nurse Practitioner Women's Health
DX: N39.0 Urinary tract infection, site not specified (principal)

== ENCOUNTER → 2021-03-26 | Outpatient (REF) | payer MEDICARE ==
[2021-03-26 16:17] LABS: CALCIUM LEVEL 9.6 MG/DL (8.8-10.2); CREATININE FOR GFR 1.1 MG/DL (0.55-1.30); GLOMERULAR FILTRATION RATE 52.9 (>45); POTASSIUM SERUM 4.5 MEQ/L (3.5-5.1)
== END ==
LOC: M SFHCCLAY 10:37
PROVIDERS: ATTEND Nurse Practitioner Women's Health
DX: R93.429 Abnormal radiologic findings on diagnostic imaging of unspecified kidney (principal); N32.81 Overactive bladder; Z87.440 Personal history of urinary (tract) infections

== ENCOUNTER → 2021-05-05 | Outpatient (REF) | payer MEDICARE | LOC: M LAB REF 09:07 | PROVIDERS: ATTEND Surgery | DX: D48.62 Neoplasm of uncertain behavior of left breast (principal) ==

== ENCOUNTER → 2021-06-23 | Outpatient (CLI) | payer MEDICARE | LOC: M WHC 09:21 | PROVIDERS: ATTEND Internal Medicine | DX: Z12.31 Encounter for screening mammogram for malignant neoplasm of breast (principal); Z80.3 Family history of malignant neoplasm of breast; Z80.0 Family history of malignant neoplasm of digestive organs ==

== ENCOUNTER → 2021-09-03 | Outpatient (REF) | payer MEDICARE ==
[2021-09-03 17:22] LABS: APPEARANCE, URINE HAZY (CLEAR); BACTERIA, URINE AUTO 1+ (NEGATIVE); BILIRUBIN, URINE AUTO NEGATIVE (NEGATIVE); BLOOD, URINE BLOOD NEGATIVE (NEGATIVE); COLOR, URINE YELLOW (YELLOW); GLUCOSE, URINE (UA) AUTO NEGATIVE (NEGATIVE); KETONE, URINE AUTO NEGATIVE (NEGATIVE); LEUKOCYTE ESTERASE, URINE AUTO 3+ (NEGATIVE); NITRITE, URINE AUTO NEGATIVE (NEGATIVE); PROTEIN, URINE AUTO NEGATIVE (NEGATIVE); RBC, URINE AUTO 0 /HPF (0-3); SPECIFIC GRAVITY URINE AUTO 1.006 (1.002-1.035); SQUAMOUS EPITHELIAL CELL UR AU 1 /HPF (0-6); UROBILINOGEN, URINE AUTO 0.2 mg/dL (0.0-2.0); WBC, URINE AUTO 55 /HPF (0-3)
== END ==
LOC: M SMT 16:55
PROVIDERS: ATTEND Nurse Practitioner Women's Health
DX: R30.0 Dysuria (principal)

== ENCOUNTER → 2022-06-05 | Outpatient (REF) | payer MEDICARE ==
[2022-06-05 18:26] LABS: MAGNESIUM LEVEL 1.8 MG/DL (1.8-2.4)
[2022-06-05 18:28] LABS: PERCENT SATURATION 8.8 % (13.2-45.0)
[2022-06-05 18:30] LABS: TOTAL 25(OH) VITAMIN D 33.5 NG/ML (20.0-100.0)
== END ==
LOC: M LABDRAWC 17:29
PROVIDERS: ATTEND Internal Medicine Gastroenterology
DX: K21.9 Gastro-esophageal reflux disease without esophagitis (principal); R11.0 Nausea; E55.9 Vitamin D deficiency, unspecified; Z79.899 Other long term (current) drug therapy

== ENCOUNTER → 2022-09-08 | Outpatient (CLI) | payer MEDICARE ==
[~2022-09-08] MED LIST changes: -AMIT25TA17 PO; +AMIT25TA19 PO
== END ==
LOC: M WUC 11:33
PROVIDERS: ATTEND Internal Medicine
DX: M13.852 Other specified arthritis, left hip (principal); M25.552 Pain in left hip

== ENCOUNTER → 2022-11-09 | Outpatient (CLI) | payer MEDICARE ==
[~2022-11-09] MED LIST changes: -MIRT-62; +MIRT-88
== END ==
LOC: M WHC 10:03
PROVIDERS: ATTEND Internal Medicine
DX: Z12.31 Encounter for screening mammogram for malignant neoplasm of breast (principal)

== ENCOUNTER → 2023-04-23 | Outpatient (REF) | payer MEDICARE ==
[2023-04-23 11:38] LABS: HEMOGLOBIN 13.3 g/dl (12.0-15.5); MEAN CORPUSCULAR HEMOGLOBIN 30.4 pg (27.0-33.0); MEAN CORPUSCULAR HGB CONC 32.4 g/dl (32.0-36.5); MEAN CORPUSCULAR VOLUME 93.6 fl (80.0-96.0); PLATELET COUNT, AUTOMATED 198 10^3/uL (150-450); RED BLOOD COUNT 4.38 10^6/uL (4.00-5.40); WHITE BLOOD COUNT 6.5 10^3/uL (4.0-10.0)
[2023-04-23 11:45] LABS: INR 1.02; PROTHROMBIN TIME 13.1 SECONDS (12.5-14.5)
[2023-04-23 11:52] LABS: HEMOGLOBIN A1c 5.6 % (4.0-6.0)
[2023-04-23 12:03] LABS: ALBUMIN 3.7 G/DL (3.2-5.2); ALKALINE PHOSPHATASE 97 U/L (46-116); ALT/SGPT 19 U/L (7.0-40); AST/SGOT 10 U/L (<34); BILIRUBIN,TOTAL 0.2 MG/DL (0.3-1.2); BLOOD UREA NITROGEN 13 MG/DL (9-23); CARBON DIOXIDE LEVEL 30 MMOL/L (20-31); CHLORIDE LEVEL 110 MMOL/L (98-107); CREATININE FOR GFR 0.89 MG/DL (0.55-1.30); GLOMERULAR FILTRATION RATE > 60.0 (>45); GLUCOSE, FASTING 117 MG/DL (74-106); IRON (FE) 44 UG/DL (50-170); MAGNESIUM LEVEL 1.8 MG/DL (1.8-2.4); PERCENT SATURATION 14.9 % (13.2-45.0); POTASSIUM SERUM 3.9 MMOL/L (3.5-5.1); SODIUM LEVEL 144 MMOL/L (136-145); TOTAL IRON BINDING CAPACITY 295 UG/DL (250-425); TOTAL PROTEIN 6.4 G/DL (5.7-8.2)
[2023-04-23 12:04] LABS: FERRITIN 87.4 NG/ML (7.3-270.7)
[2023-04-23 12:05] LABS: TOTAL 25(OH) VITAMIN D 54.2 NG/ML (20.0-100.0); VITAMIN B12 LEVEL 442 PG/ML (211-911)
== END ==
LOC: M LABDRAWC 11:10
PROVIDERS: ATTEND Internal Medicine Gastroenterology
DX: K31.819 Angiodysplasia of stomach and duodenum without bleeding (principal); K21.9 Gastro-esophageal reflux disease without esophagitis; K44.9 Diaphragmatic hernia without obstruction or gangrene; E55.9 Vitamin D deficiency, unspecified; Z86.010 Personal history of colon polyps; Z79.899 Other long term (current) drug therapy; Z86.39 Personal history of other endocrine, nutritional and metabolic disease

== ENCOUNTER → 2023-08-10 | Outpatient (REF) | payer MEDICARE ==
[2023-08-10 11:55] LABS: ALBUMIN 3.6 G/DL (3.2-5.2); ALKALINE PHOSPHATASE 88 U/L (46-116); ALT/SGPT 17 U/L (7.0-40); AST/SGOT < 8 U/L (<34); BILIRUBIN,TOTAL 0.3 MG/DL (0.3-1.2); BLOOD UREA NITROGEN 13 MG/DL (9-23); CALCIUM LEVEL 9.1 MG/DL (8.3-10.6); CARBON DIOXIDE LEVEL 28 MMOL/L (20-31); CHLORIDE LEVEL 109 MMOL/L (98-107); CHOLESTEROL LEVEL 195 MG/DL (<200); CHOLESTEROL RISK RATIO 3.92 (<5); CREATININE FOR GFR 0.93 MG/DL (0.55-1.30); GLOMERULAR FILTRATION RATE > 60.0 (>45); GLUCOSE, FASTING 121 MG/DL (74-106); HDL CHOLESTEROL 49.7 MG/DL (>40); LDL CHOLESTEROL 121.5 MG/DL (<100); NON-HDL-C 145.3 MG/DL; POTASSIUM SERUM 4.2 MMOL/L (3.5-5.1); SODIUM LEVEL 145 MMOL/L (136-145); TOTAL PROTEIN 6.5 G/DL (5.7-8.2); TRIGLYCERIDES LEVEL 119 MG/DL (<150)
[2023-08-10 12:19] LABS: HEMOGLOBIN A1c 5.4 % (4.0-6.0)
== END ==
LOC: M LABDRAWC 11:26
PROVIDERS: ATTEND Internal Medicine
DX: K21.9 Gastro-esophageal reflux disease without esophagitis (principal); E78.5 Hyperlipidemia, unspecified; R73.01 Impaired fasting glucose

== ENCOUNTER 2023-10-13 15:53 | Emergency (ER) | payer MEDICARE ==
[~2023-10-13] VITALS: Ht 177.8 cm; Wt 121.4 kg
[2023-10-13 16:57] LABS: BASO % 0.4 % (0.0-1.0); EOS # 0.3 10^3/uL (0.0-0.5); EOS % 2.9 % (0.0-3.0); HEMATOCRIT 41.8 % (36.0-47.0); HEMOGLOBIN 13.6 g/dl (12.0-15.5); LYMPH # 1.8 10^3/uL (1.5-5.0); LYMPH % 19.3 % (24.0-44.0); MEAN CORPUSCULAR HEMOGLOBIN 29.8 pg (27.0-33.0); MEAN CORPUSCULAR HGB CONC 32.5 g/dl (32.0-36.5); MEAN CORPUSCULAR VOLUME 91.7 fl (80.0-96.0); MONO # 0.7 10^3/uL (0.0-0.8); MONO % 7.5 % (2.0-8.0); NEUTROPHILS # 6.4 10^3/uL (1.5-8.5); NEUTROPHILS % 69.6 % (36.0-66.0); PLATELET COUNT, AUTOMATED 230 10^3/uL (150-450); RED BLOOD COUNT 4.56 10^6/uL (4.00-5.40); WHITE BLOOD COUNT 9.2 10^3/uL (4.0-10.0)
[2023-10-13 17:29] LABS: CK-MB VALUE MASS < 1.0 NG/ML (<3.6)
[2023-10-13 17:30] LABS: CPK CREATINE PHOSPHOKINASE 95 U/L (34-145); MB/CK RELATIVE INDEX 1.05 (< OR =4)
[2023-10-13 17:31] LABS: BLOOD UREA NITROGEN 15 MG/DL (9-23); CALCIUM LEVEL 9.5 MG/DL (8.3-10.6); CARBON DIOXIDE LEVEL 28 MMOL/L (20-31); CHLORIDE LEVEL 107 MMOL/L (98-107); CREATININE FOR GFR 0.96 MG/DL (0.55-1.30); GLOMERULAR FILTRATION RATE > 60.0 (>45); GLUCOSE, FASTING 98 MG/DL (74-106); POTASSIUM SERUM 4.1 MMOL/L (3.5-5.1); SODIUM LEVEL 142 MMOL/L (136-145)
[2023-10-13 18:00] VITALS: TEMP 97.9
[2023-10-13 18:15] VITALS: BP 168/94
[2023-10-13 18:46] LABS: CK-MB VALUE MASS < 1.0 NG/ML (<3.6)
[2023-10-13 18:48] LABS: CPK CREATINE PHOSPHOKINASE 91 U/L (34-145); MB/CK RELATIVE INDEX 1.09 (< OR =4)
[2023-10-13 19:00] VITALS: O2SAT 95
== END 2023-10-13 19:18 | disposition home or self-care (01) ==
LOC: M ED 15:53
DX: R07.89 Other chest pain (principal); I51.9 Heart disease, unspecified; K21.9 Gastro-esophageal reflux disease without esophagitis; J44.9 Chronic obstructive pulmonary disease, unspecified; Z86.73 Personal history of transient ischemic attack (TIA), and cerebral infarction without residual deficits; Z87.891 Personal history of nicotine dependence; Z79.82 Long term (current) use of aspirin; Z79.899 Other long term (current) drug therapy; Z88.8 Allergy status to other drugs, medicaments and biological substances

== ENCOUNTER → 2023-11-25 | Outpatient (CLI) | payer MEDICARE | LOC: M WHC 12:57 | PROVIDERS: ATTEND Internal Medicine | DX: Z12.31 Encounter for screening mammogram for malignant neoplasm of breast (principal); R92.313 Mammographic fatty tissue density, bilateral breasts ==

== ENCOUNTER → 2024-04-27 | Outpatient (REF) | payer MEDICARE ==
[2024-04-27 16:16] LABS: FERRITIN 49.5 NG/ML (7.3-270.7)
[2024-04-27 16:25] LABS: PERCENT SATURATION 14.6 % (13.2-45.0)
== END ==
LOC: M LABDRAWC 11:57
PROVIDERS: ATTEND Internal Medicine Gastroenterology
DX: K31.819 Angiodysplasia of stomach and duodenum without bleeding (principal); K21.9 Gastro-esophageal reflux disease without esophagitis; E61.1 Iron deficiency; Z86.0100 Personal history of colon polyps, unspecified

== ENCOUNTER → 2024-08-31 | Outpatient (REF) | payer MEDICARE | LOC: M LABSMT 12:02 | PROVIDERS: ATTEND Physician Assistant | DX: R39.9 Unspecified symptoms and signs involving the genitourinary system (principal) ==

== ENCOUNTER → 2024-09-04 | Outpatient (REF) | payer MEDICARE ==
[2024-09-04 17:35] LABS: APPEARANCE, URINE CLOUDY (CLEAR); BACTERIA, URINE AUTO 1+ (NEGATIVE); BILIRUBIN, URINE AUTO NEGATIVE (NEGATIVE); BLOOD, URINE BLOOD NEGATIVE (NEGATIVE); GLUCOSE, URINE (UA) AUTO NEGATIVE (NEGATIVE); KETONE, URINE AUTO NEGATIVE (NEGATIVE); LEUKOCYTE ESTERASE, URINE AUTO 3+ (NEGATIVE); MUCUS, URINE SMALL (NEGATIVE); NITRITE, URINE AUTO POSITIVE (NEGATIVE); PROTEIN, URINE AUTO NEGATIVE (NEGATIVE); RBC, URINE AUTO 20 /HPF (0-3); SPECIFIC GRAVITY URINE AUTO 1.013 (1.002-1.035); SQUAMOUS EPITHELIAL CELL UR AU 6 /HPF (0-6); UROBILINOGEN, URINE AUTO 0.2 mg/dL (0.0-2.0); WBC, URINE AUTO TNTC /HPF (0-3)
== END ==
LOC: M SFHCCLAY 10:19
PROVIDERS: ATTEND Physician Assistant
DX: R39.9 Unspecified symptoms and signs involving the genitourinary system (principal)

== ENCOUNTER → 2024-09-19 | Outpatient (REF) | payer MEDICARE ==
[2024-09-19 13:48] LABS: APPEARANCE, URINE CLOUDY (CLEAR); BACTERIA, URINE AUTO 1+ (NEGATIVE); BILIRUBIN, URINE AUTO NEGATIVE (NEGATIVE); BLOOD, URINE BLOOD NEGATIVE (NEGATIVE); GLUCOSE, URINE (UA) AUTO NEGATIVE (NEGATIVE); KETONE, URINE AUTO NEGATIVE (NEGATIVE); LEUKOCYTE ESTERASE, URINE AUTO 3+ (NEGATIVE); MUCUS, URINE SMALL (NEGATIVE); NITRITE, URINE AUTO NEGATIVE (NEGATIVE); PROTEIN, URINE AUTO 1+ mg/dL (NEGATIVE); RBC, URINE AUTO 3 /HPF (0-3); SPECIFIC GRAVITY URINE AUTO 1.023 (1.002-1.035); SQUAMOUS EPITHELIAL CELL UR AU 4 /HPF (0-6); TRANSITIONAL EPITHELIAL AUTO 2 /HPF; UROBILINOGEN, URINE AUTO 0.2 mg/dL (0.0-2.0); WBC, URINE AUTO TNTC /HPF (0-3)
== END ==
LOC: M SMT 12:51
PROVIDERS: ATTEND Physician Assistant
DX: N39.0 Urinary tract infection, site not specified (principal)

== ENCOUNTER → 2024-10-03 | Outpatient (REF) | payer MEDICARE ==
[2024-10-03 18:21] LABS: APPEARANCE, URINE HAZY (CLEAR); BACTERIA, URINE AUTO NEGATIVE (NEGATIVE); BILIRUBIN, URINE AUTO NEGATIVE (NEGATIVE); BLOOD, URINE BLOOD NEGATIVE (NEGATIVE); GLUCOSE, URINE (UA) AUTO NEGATIVE (NEGATIVE); KETONE, URINE AUTO NEGATIVE (NEGATIVE); LEUKOCYTE ESTERASE, URINE AUTO 1+ (NEGATIVE); MUCUS, URINE SMALL (NEGATIVE); NITRITE, URINE AUTO NEGATIVE (NEGATIVE); PROTEIN, URINE AUTO NEGATIVE (NEGATIVE); RBC, URINE AUTO 2 /HPF (0-3); SPECIFIC GRAVITY URINE AUTO 1.021 (1.002-1.035); SQUAMOUS EPITHELIAL CELL UR AU 2 /HPF (0-6); TRANSITIONAL EPITHELIAL AUTO 1 /HPF; UROBILINOGEN, URINE AUTO 0.2 mg/dL (0.0-2.0); WBC, URINE AUTO 13 /HPF (0-3)
== END ==
LOC: M LABSMT 10:05
PROVIDERS: ATTEND Physician Assistant
DX: N39.0 Urinary tract infection, site not specified (principal)

== ENCOUNTER → 2024-12-27 | Outpatient (REF) | payer MEDICARE ==
[~2024-12-27] MED LIST changes: -EZET10TA21 PO; +EZET10TA57 PO
[2024-12-27 13:30] LABS: BASO # 0.0 10^3/uL (0.0-0.2); BASO % 0.6 % (0.0-1.0); EOS # 0.2 10^3/uL (0.0-0.5); EOS % 3.4 % (0.0-3.0); LYMPH # 2.0 10^3/uL (1.5-5.0); LYMPH % 31.1 % (24.0-44.0); MONO # 0.5 10^3/uL (0.0-0.8); MONO % 8.0 % (2.0-8.0); NEUTROPHILS # 3.7 10^3/uL (1.5-8.5); NEUTROPHILS % 56.4 % (36.0-66.0); PLATELET COUNT, AUTOMATED 230 10^3/uL (150-450)
[2024-12-27 13:34] LABS: ALT/SGPT 16.0 U/L (7.0-40); AST/SGOT 15.0 U/L (<34); CALCIUM LEVEL 8.8 MG/DL (8.3-10.6); CARBON DIOXIDE LEVEL 30.0 MMOL/L (20-31); CHLORIDE LEVEL 105.0 MMOL/L (98-107); CHOLESTEROL LEVEL 188.0 MG/DL (<200); CHOLESTEROL RISK RATIO 3.73 (<5); CREATININE FOR GFR 0.99 MG/DL (0.55-1.30); GLOMERULAR FILTRATION RATE 61.3 (>39); LDL CHOLESTEROL 104.6 MG/DL (<100); NON-HDL-C 137.6 MG/DL; POTASSIUM SERUM 4.1 MMOL/L (3.5-5.1); SODIUM LEVEL 145.0 MMOL/L (136-145); TRIGLYCERIDES LEVEL 165.0 MG/DL (<150)
== END ==
LOC: M LABDRAWC 12:42
PROVIDERS: ATTEND Internal Medicine
DX: E78.5 Hyperlipidemia, unspecified (principal)

== ENCOUNTER → 2025-01-23 | Outpatient (CLI) | payer MEDICARE | LOC: M WHC 09:45 | PROVIDERS: ATTEND Internal Medicine | DX: Z12.31 Encounter for screening mammogram for malignant neoplasm of breast (principal) ==